=== PATIENT | male | born 1975 | race Caucasian/White ===

== ENCOUNTER 2020-01-01 06:54 | Outpatient (NON) | payer OTHER, SELFPAY ==
[2020-01-02 06:46] LABS: SARS-CoV-2 RNA PCR Negative
== END 2020-01-01 06:55 ==
LOC: ANHCOVIDDT 06:59
PROVIDERS: PCP Family Medicine; Visit Provider Family Medicine
DX: Z20.828 Contact with and (suspected) exposure to other viral communicable diseases (principal); R09.81 Nasal congestion
CPT/HCPCS: 87635; C9803; U0003

== ENCOUNTER 2020-07-03 19:47 | Emergency (ER) | payer OTHER, SELFPAY ==
--- NOTE | ~2020-07-03 | XR_ITS ---
EXAMINATION: XR knee RT min 4V DATE: 07/03/2020 20:33 INDICATION: Right knee pain TECHNIQUE: Four views of the right knee were obtained. COMPARISON: 10/25/2015 FINDINGS: Alignment is normal. No fracture or osteochondral lesion. There is mild tricompartmental os teoarthritis characterized by tiny marginal osteophytes an mild joint space narrowing. There is a lar ge knee joint effusion. Soft tissues are unremarkable. IMPRESSION: 1. Large knee joint effusion. Reviewed, dictated and finalized at location [facility].
[2020-07-03 20:13] VITALS: BP 152/98; PULSE 108; RESP 16; TEMP 36.2; O2SAT 97
--- NOTE | 2020-07-03 21:43 | ED.LOWEXIN ---
HPI - Extremity Injury (Lower) General Chief Complaint: Extremity Injury, Lower Stated Complaint: Right knee pain and swelling Time Seen by Provider: 07/03/20 20:18 History of Present Illness HPI Narrative: Patient is a 45-year-old male who presents ER with right knee pain and swelling. Ongoing over the last 5 days. Patient was initially sitting with his right heel tucked under his left leg for a while. He then stood up to walk and had sudden pain and stiffness. Swelling is increased since then. He is gone to the chiropractor and had prolozone treatment where they inject procaine and ionized oxygen into the ligaments of the knee. This has not been helping. Apparently he is also been having protein rich plasma injections over the last 5 weeks due to chronic issues related to the same knee. No fevers or chills or sweats. No redness to the leg/knee. No numbness or tingling. Patient reports she will get occasional spasms in his thigh related to his knee pain. Related Data Allergies Allergy/AdvReac Type Severity Reaction Status Date / Time ciprofloxacin Allergy Unknown Rash Verified 03/10/20 12:34 metronidazole Allergy Unknown Rash Verified 03/10/20 12:34 piperacillin Allergy Unknown Rash Verified 03/10/20 12:34 tazobactam Allergy Unknown Rash Verified 03/10/20 12:34 Review of Systems Review of Systems: All systems reviewed & are unremarkable except as noted in HPI and below Constitutional: Constitutional: Denies chills, Denies fever(s) and Denies weakness Musculoskeletal: Musculoskeletal: Reports arthralgias, Reports joint swelling and Reports muscle cramps Integumentary/Breasts: Skin/Breast: Denies rash and Denies skin ulcer Neurologic: Denies focal weakness and Denies numbness [facility] Past Medical History Medical History Anxiety Anxiety disorder, unspecified Arm fracture, left Arthralgia of ankle, right Asthma Decreased libido Diverticulitis Foot fracture, right Gout Idiopathic gout, unspecified site Nasal sinus cyst Screening PSA (prostate specific antigen) Seasonal allergies UTI (urinary tract infection) Vitamin D deficiency Surgical History Surgical History H/O removal of cyst nasal History of hip surgery bilateral Hx of cholecystectomy Family History Family History Grandparent Family history of malignant neoplasm of brain Other Cerebrovascular accident Diabetes mellitus Family history of arthritis Family history of cardiovascular disease Family history of gout Family history of malignant neoplasm Hypertension Social History Social History Smoking packs per day: 0.25 Smoking cigarettes per day: 5.0 Years smoked: 12 Smoking pack-years: 3.00 Smoking status: Former smoker Smoking end date: 02/11/10 Alcohol intake: current Gender identity (if verbalized by the patient): Male Exam Narrative: Exam Narrative: GENERAL: Well-appearing, well-nourished, and in no acute distress. HEAD: Normocephalic, atraumatic. HEART: Regular rate and rhythm. No murmur heard. Normal peripheral pulses. EXTREMITIES: Right lower extremity with large knee effusion. No joint line tenderness. Mild discomfort with valgus stress testing however this may be related to the hand being rested over the lateral aspect of the knee where he had his injections performed. No redness or swelling. Mild bruising from injections. SKIN: Warm, dry, no rash. NEURO: No focal deficits. Alert and oriented x3. PSYCH: Normal mood and affect. Course Course Emergency Course: Patient informed of results and treatment plan. Will place knee immobilizer. Recommend weightbearing as tolerated with crutches. Follow-up with orthopedic surgery for further treatment evaluation. May have a flare of his osteoarthritis or he m
[2020-07-03 22:11] VITALS: BP 150/103; PULSE 84; RESP 20; O2SAT 98
== END 2020-07-03 22:11 | disposition home or self-care (01) ==
PROVIDERS: Emergency Provider Emergency Medicine; PCP Family Medicine
DX: M25.461 Effusion, right knee (principal); J45.909 Unspecified asthma, uncomplicated; M10.00 Idiopathic gout, unspecified site; Z87.891 Personal history of nicotine dependence; E55.9 Vitamin D deficiency, unspecified
CPT/HCPCS: 73564; 99283

== ENCOUNTER 2020-07-04 15:33 | Outpatient (CLI) | payer OTHER, SELFPAY ==
[2020-07-04 15:56] LABS: Basophils Percent Auto 0.5 % (0.2-1.2); Eosinophils Absolute Auto 0.1 K/mm3 (0-0.3); Eosinophils Percent Auto 1.9 % (0-4.4); Hemoglobin 14.6 g/dL (14.0-18.0); Immature Granulocyte Absolute 0.02 K/mm3 (0.00-0.031); Immature Granulocyte Percent A 0.3 % (0-0.5); Lymphocytes Absolute Auto 1.94 K/mm3 (0.9-3.2); Lymphocytes Percent Auto 26.3 % (18.3-44.2); Mean Corpuscular HGB Conc 33.2 g/dl (32-36); Mean Corpuscular Hemoglobin 29.3 pg (26-34); Mean Corpuscular Volume 88.4 fl (80-100); Mean Platelet Volume 9.4 fl (7.4-10.4); Monocytes Absolute Auto 0.6 K/mm3 (0.1-0.6); Monocytes Percent Auto 7.7 % (2.6-8.5); Neutrophils Absolute Auto 4.7 K/mm3 (1.3-6.7); Neutrophils Percent Auto 63.3 % (45.5-73.1); Platelet Count Result 245 k/mm3 (150-375); Red Blood Count 4.98 M/mm3 (4.6-6.20); Red Cell Distribution Width 13.2 % (11.5-14.5); White Blood Count 7.4 K/mm3 (4.5-10.0)
[2020-07-04 16:05] LABS: Uric Acid 7.8 mg/dL (3.5-8.5)
== END 2020-07-04 15:34 | disposition home or self-care (01) ==
LOC: ANHLAB 15:35
PROVIDERS: PCP Family Medicine; Visit Provider Nurse Practitioner Family
DX: M25.461 Effusion, right knee (principal)
CPT/HCPCS: 36415; 84550; 85025

== ENCOUNTER 2020-07-28 15:24 | Outpatient (CLI) | payer OTHER, SELFPAY ==
--- NOTE | ~2020-07-28 | MR_ITS ---
EXAMINATION: MR knee RT wo con DATE: 07/28/2020 16:01 INDICATION: Right knee pain TECHNIQUE: Magnetic resonance imaging (MRI) of the right knee was performed without intravenous contr ast. Sequences included coronal PD-weighted FSE, coronal PD-weighted FS FSE, sagittal T2-weighted FS E, sagittal PD-weighted FS FSE and axial PD weighted fat saturated FSE. COMPARISON: Right knee radiographs dated 07/03/2020 FINDINGS: Medial compartment: Medial meniscus is normal. Articular cartilage is normal. Lateral compartment: Lateral meniscus is normal. Articular cartilage is normal. Patellofemoral compartment: Partial-thickness chondral ulceration and deep fissuring with underlying mild cortical irregularity a nd subarticular cystic edema at the lateral patellar facet. Additional chondral fissuring in place in volving greater than 50% the cartilage thickness but without degenerative subchondral changes at the apical ridge and lateral facet. Additional less severe partial thickness chondral fissuring along the caudal aspect of the trochlear groove. Ligaments and tendons: Anterior and posterior cruciate ligaments are normal. The medial collateral ligament is normal. There is mild thickening and mild increased signal at the proximal fibular collateral ligament with mild s urrounding edema consistent with low to moderate grade sprain. There is also thickening and more prom inent increased signal in the popliteal tendon consistent with moderate tendinopathy without discrete tear. Quadriceps tendon is normal. Mild tendinopathy at the proximal patellar tendon. The visualized medial and lateral hamstring tendons as well as the iliotibial band are normal. Fluid: Small right knee joint effusion with mild synovitis at the suprapatellar pouch. No loose osteochondra l bodies identified. Osseous/other: Normal bone marrow signal aside from the previous noted subarticular edema at the lateral patellar fa cet. No fracture or or pathologic marrow replacing process. IMPRESSION: 1. Mild patellofemoral osteoarthritis with extensive high-grade chondromalacia at the lateral patella r facet and moderate grade chondral malacia medial facet and trochlea groove. 2. Low to moderate grade sprain of the proximal fibular collateral ligament and adjacent moderate ten dinopathy without discrete tear of the popliteal tendon. 3. Small right knee joint effusion. Reviewed, dictated and finalized at location [facility]. IMPRESSION: 1. Mild patellofemoral osteoarthritis with extensive high-grade chondromalacia at the lateral patellar facet and moderate grade chondral malacia medial facet and trochlea groove. 2. Low to moderate grade sprain of the proximal fibular collateral ligament and adjacent moderate tendinopathy without discrete tear of the popliteal tendon. 3. Small right knee joint effusion.
== END 2020-07-28 15:25 ==
PROVIDERS: PCP Family Medicine; Visit Provider Orthopaedic Surgery
DX: M25.461 Effusion, right knee (principal); M17.11 Unilateral primary osteoarthritis, right knee
CPT/HCPCS: 73721

== ENCOUNTER 2020-08-05 12:48 | Outpatient (NON) | payer OTHER, SELFPAY ==
[2020-08-05 16:02] LABS: Color Synovial Fluid Yellow (Colorless); Crystals Synovial Fluid None Seen (None Seen); Source Synovial Fluid Synovial fluid
[2020-08-05 16:03] LABS: Appearance Synovial Fluid Cloudy (Clear); Lymphocytes Synovial Fluid 5 %; Monocytes Synovial Fluid 5 %; Neutrophils Synovial Fluid 90 % (0-25); Nucleated Cell Synovial Fluid 12356 /uL (0-200); RBC Synovial Fluid 0 /uL (0-0)
== END 2020-08-05 12:49 | disposition home or self-care (01) ==
PROVIDERS: PCP Family Medicine; Visit Provider Orthopaedic Surgery
DX: M25.561 Pain in right knee (principal)
CPT/HCPCS: 89051; 89060

== ENCOUNTER 2021-03-08 16:45 | Emergency (ER) | payer OTHER, SELFPAY ==
--- NOTE | ~2021-03-08 | CT_ITS ---
EXAMINATION: CT abdomen pelvis w con DATE: 03/08/2021 23:49 INDICATION: Lower abdominal pain for 3 days. History of diverticulitis. Nausea and diarrhea. TECHNIQUE: Computed tomography (CT) of the abdomen and pelvis was performed with 100 cc Omnipaque 350 intravenous contrast. Automated exposure control and iterative reconstruction technique were employe d. Exam dose: 1402.10 mGy-cm total exam DLP. COMPARISON: 05/25/2017 CT abdomen pelvis FINDINGS: The lung bases are clear of infiltrate or consolidation. Normal heart size. No pericardial or pleural effusion. There is diffuse hepatic steatosis. No hepatic space-occupying mass lesion. Status post cholecystecto my. No bile duct or pancreatic duct dilatation. No pancreatic mass lesion or calcification. Normal sp lenic size. Normal morphology of the adrenal glands. 5 mm lower pole right renal cyst. The kidneys are otherwise unremarkable. No urinary tract calculus o r hydroureteronephrosis. There is moderate diffuse thickening of the urinary bladder wall, mild prostate enlargement. Normal caliber of the abdominal aorta. No intraperitoneal or retroperitoneal or pelvic mass lesion or adenopathy or ascites. There is prominent thickening of the wall of the mid sigmoid colon in the lower right pelvic area wit h prominent pericolic fat stranding, consistent with sigmoid diverticulitis. No abscess is identified . There is a small amount of fluid in the dependent pelvis. There are numerous diverticula of the left and right colon. Normal appendix. Small fat-containing umbilical hernia and small fat-containing left inguinal hernia. No suspicious osteolytic or osteoblastic lesions are noted. Bilateral hip osteoarthritis. IMPRESSION: Sigmoid diverticulitis; no abscess identified Extensive diverticulosis of left and right colon Normal appendix Hepatic steatosis Status post cholecystectomy Reviewed, dictated and finalized at [facility]. Reviewed, dictated and finalized at location [facility]. T [employer]
[2021-03-08 17:14] VITALS: BP 157/96; PULSE 100; RESP 20; TEMP 36.7; O2SAT 99
[2021-03-08 21:18] VITALS: BP 148/99; RESP 18; O2SAT 100
[2021-03-08 21:40] LABS: Add Urine Microscopic? YES; Appearance Urine Clear (Clear); Bilirubin Urine Negative (Negative); Blood Urine 1+ (Negative); Color Urine Yellow (Yellow); Glucose Urine UA Negative (Negative); Ketones Urine Negative (Negative); Leukocyte Esterase Ur Negative LEU/UL (Negative); Mucus Urine Rare /lpf; Nitrate Urine Negative (Negative); Protein Urine Negative (Negative); Specific Grav Ur 1.013 (1.001-1.035); Squamous Epithelial Cell Urine Rare /hpf (Few); Urobilinogen Urine Negative mg/dL (<2.0); WBC Urine 0-3 /hpf
[2021-03-08 22:17] LABS: Basophils Percent Auto 0.5 % (0.2-1.2); Eosinophils Absolute Auto 0.1 K/mm3 (0-0.3); Eosinophils Percent Auto 1.2 % (0-4.4); Hematocrit 43.8 % (42.0-52.0); Hemoglobin 14.6 g/dL (14.0-18.0); Immature Granulocyte Absolute 0.01 K/mm3 (0.00-0.031); Immature Granulocyte Percent A 0.1 % (0-0.5); Lymphocytes Absolute Auto 2.13 K/mm3 (0.9-3.2); Mean Corpuscular HGB Conc 33.3 g/dl (32-36); Mean Corpuscular Hemoglobin 27.8 pg (26-34); Mean Corpuscular Volume 83.4 fl (80-100); Monocytes Absolute Auto 0.8 K/mm3 (0.1-0.6); Monocytes Percent Auto 9.5 % (2.6-8.5); Neutrophils Absolute Auto 5.7 K/mm3 (1.3-6.7); Neutrophils Percent Auto 64.7 % (45.5-73.1); Platelet Count Result 217 k/mm3 (150-375); Red Blood Count 5.25 M/mm3 (4.6-6.20); Red Cell Distribution Width 14.4 % (11.5-14.5); White Blood Count 8.9 K/mm3 (4.5-10.0)
[2021-03-08 22:43] LABS: Alanine Aminotransferase 61 U/L (4-50); Albumin Level 5.1 g/dL (3.5-5.1); Alkaline Phosphatase 99 U/L (38-126); Anion Gap 12 mmol/L (8-16); Aspartate Amino Transferase 77 U/L (17-59); Bilirubin,Total 1.5 mg/dL (0.2-1.3); Blood Urea Nitrogen 12 mg/dL (9-20); Calcium 9.5 mg/dL (8.4-10.2); Carbon Dioxide 23 mmol/L (22-30); Chloride 103 mmol/L (98-107); Estimated CRCL calculation 114 ml/min; Estimated Glomerular Filt Rate > 60; Glucose 95 mg/dL (65-110); Lipase 81 U/L (23-300); Potassium 5.7 mmol/L (3.4-5.0); Sodium 138 mmol/L (137-145)
[2021-03-08 23:03] VITALS: BP 148/100; PULSE 88; RESP 18; O2SAT 100
--- NOTE | 2021-03-09 00:06 | ED.ABDPAIN ---
HPI - Abdominal Pain General Chief Complaint: Abdominal Pain Stated Complaint: abd pain Time Seen by Provider: 03/08/21 21:15 Source: patient Mode of arrival: ambulatory Limitations: no limitations History of Present Illness HPI narrative: 45-year-old with a history of diverticulitis, anxiety, gout, hypertension here with complaints of suprapubic pain for past few days. He thought he was passing a kidney stone and drank a gallon of cranberry juice last night. Patient denies any fever or chills. No history of nausea, vomiting or diarrhea. Denies any blood in the urine or in stool. MD elicited complaint: abdominal pain Pertinent past history: diverticulitis Onset (ago): day(s) (2) Location: suprapubic Severity: moderate Quality: aching Radiation: suprapubic Migration to: no migration Exacerbating factors: nothing Relieving factors: nothing Related Data Home Medications Medication Instructions Recorded Confirmed fexofenadine 180 mg tablet 180 mg PO DAILY 01/09/21 03/08/21 fluticasone propionate 50 1 spray INTRANASAL DAILY 01/09/21 03/08/21 mcg/actuation nasal spray,suspension multivitamin 1 tablet PO DAILY 01/09/21 03/08/21 Allergies Allergy/AdvReac Type Severity Reaction Status Date / Time ciprofloxacin Allergy Unknown Rash Verified 03/08/21 08:33 metronidazole Allergy Unknown Rash Verified 03/08/21 08:33 piperacillin Allergy Unknown Rash Verified 03/08/21 08:33 tazobactam Allergy Unknown Rash Verified 03/08/21 08:33 Review of Systems Review of Systems: All systems reviewed & are unremarkable except as noted in HPI and below Constitutional: Constitutional: Reports no additional constitutional complaints Eyes: Eyes: Reports no additional eye complaints ENT: Reports system reviewed and no additional complaints, except as documented Cardiovascular: Cardiovascular: Reports no additional cardiovascular complaints Respiratory: Respiratory: Reports no additional respiratory complaints Gastrointestinal: Gastrointestinal: Reports as per HPI Integumentary/Breasts: Skin/Breast: Reports system reviewed and no additional complaints, except as docu Neurologic: Reports system reviewed and no additional complaints, except as documented Endocrine: Endocrine: Reports no additional endocrine complaints Hematologic/Lymphatic: Hematologic/Lymphatic: Reports no additional hematologic/lymphatic complaints PMFSH Past Medical History Medical History Anxiety Anxiety disorder, unspecified Arm fracture, left Arthralgia of ankle, right Asthma BMI 34.0-34.9,adult BMI 34.0-34.9,adult BMI 36.0-36.9,adult Decreased libido Diverticulitis Foot fracture, right Gout Idiopathic gout, unspecified site Nasal sinus cyst Screening PSA (prostate specific antigen) Seasonal allergies UTI (urinary tract infection) Vitamin D deficiency Surgical History Surgical History H/O removal of cyst nasal History of hip surgery bilateral Hx of cholecystectomy Family History Family History Grandparent Family history of malignant neoplasm of brain Father Heart disease Cancer Mother No problems noted. Sibling Diabetes mellitus Other Cerebrovascular accident Family history of arthritis Family history of cardiovascular disease Family history of gout Family history of malignant neoplasm Hypertension Social History Social History Smoking packs per day: 0.25 Smoking cigarettes per day: 5.0 Years smoked: 12 Smoking pack-years: 3.00 Tobacco type: cigarettes and pipe Smoking end date: 02/11/10 Alcohol intake: current Drinks per week: 5 Substance use: never Substance use type: does not use Additional living arrangements comments: and daughters Additional occupation/edu
[2021-03-09 01:12] VITALS: BP 148/100; PULSE 97; RESP 16; O2SAT 98
== END 2021-03-09 01:13 | disposition home or self-care (01) ==
PROVIDERS: Emergency Provider Family Medicine; PCP Family Medicine
DX: K57.32 Diverticulitis of large intestine without perforation or abscess without bleeding (principal); I10 Essential (primary) hypertension; J45.909 Unspecified asthma, uncomplicated; M10.00 Idiopathic gout, unspecified site; Z87.440 Personal history of urinary (tract) infections; E55.9 Vitamin D deficiency, unspecified; Z87.891 Personal history of nicotine dependence; K76.0 Fatty (change of) liver, not elsewhere classified
CPT/HCPCS: 36415; 74177; 80053; 81001; 83690; 85025; 99284; Q9967

== ENCOUNTER 2021-08-04 00:44 | Day surgery (SDC) | payer OTHER, SELFPAY ==
[2021-07-26 10:06] VITALS: BMI 34.1
--- NOTE | 2021-08-03 12:07 | WPDANESEPPF ---
Anes - Initial Pre Proc Eval Procedure: Operation Date: 08/04/21 09:30 Proposed Procedures p Colonoscopy - Amanuel Coronado MD Date/Time: 08/03/21 12:07 Surgeon: Amanuel Coronado MD Pre Op Diagnosis: diverticulitis Patient Data Age: 46 Gender: M Height: 1.8 m Weight: 111 kg Allergies Allergy/AdvReac Type Severity Reaction Status Date / Time ciprofloxacin Allergy Unknown Rash Verified 08/04/21 08:38 metronidazole Allergy Unknown Rash Verified 08/04/21 08:38 piperacillin Allergy Unknown Rash Verified 08/04/21 08:38 tazobactam Allergy Unknown Rash Verified 08/04/21 08:38 sulfamethoxazole AdvReac Intermediate Rash Verified 08/04/21 08:38 [From Bactrim] trimethoprim [From Bactrim] AdvReac Intermediate Rash Verified 08/04/21 08:38 Home Medications Medication Instructions Recorded Confirmed Type allopurinol 300 mg tablet 300 mg PO DAILY #90 tabs 12/05/20 08/04/21 Rx fexofenadine 180 mg tablet 180 mg PO DAILY 01/09/21 08/04/21 History ([facility]hell Allergy) fluticasone propionate 50 1 spray intranasal DAILY 01/09/21 08/04/21 History mcg/actuation nasal spray,suspension (Flonase Allergy Relief) multivitamin 1 tablet PO DAILY 01/09/21 08/04/21 History lisinopril 10 mg tablet 10 mg PO DAILY #90 tabs 07/06/21 08/04/21 Rx Patient hx anesthesia problems: none Family hx anesthesia problems: none Results Review: All pre-operative results and documents have been reviewed as part of the pre-operative evaluation. [facility] Past Medical History Medical History (Updated 08/03/21 @ 12:07 by Errol Santamaria DO) Anxiety Anxiety disorder, unspecified Arm fracture, left Arthralgia of ankle, right Asthma BMI 34.0-34.9,adult BMI 34.0-34.9,adult BMI 36.0-36.9,adult Decreased libido Diverticulitis Foot fracture, right Gout Hypertension Idiopathic gout, unspecified site Nasal sinus cyst Screening PSA (prostate specific antigen) Seasonal allergies UTI (urinary tract infection) Vitamin D deficiency Surgical History Surgical History H/O removal of cyst nasal History of hip surgery bilateral Hx of cholecystectomy Family History Family History Grandparent Family history of malignant neoplasm of brain Father Heart disease Cancer Mother No problems noted. Sibling Diabetes mellitus Thyroid activity decreased Other Cerebrovascular accident Family history of arthritis Family history of cardiovascular disease Family history of gout Family history of malignant neoplasm Hypertension Social History Social History Smoking packs per day: 0.5 Smoking cigarettes per day: 10.0 Years smoked: 15 Smoking pack-years: 7.50 Smoking status: Never smoker Tobacco type: cigarettes Second hand tobacco smoke exposure: Yes Smoking end date: 02/11/10 Alcohol intake: current Drinks per week: 5 Alcohol use details: on occassion Substance use: never Substance use type: does not use Living arrangements: with family Additional living arrangements comments: and daughters 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 Gender identity (if verbalized by the patient): Male Sexual Orientation (if Verbalized by the Patient): Straight or Heterosexual Spiritual care concerns: No Agree to blood products: Yes Anes - Eval Final PreProcedure Day of Procedure 08/03/21 12:07 Patient weight: obese Heart: regular rate and rhythm Lungs: clear to auscultation Airway: Mallampati scale class II Neurological: alert and oriented Last oral intake: >/= 8 hours ASA classification: III Emergent: no Anesthetic plan: proceed Anesthesia type and monitoring: general GIVS and standard monitoring Results Review: All pre-operative results and documents have been reviewed as part of the
[2021-08-04 08:40] VITALS: BP 119/86; PULSE 92; RESP 16; TEMP 36.2; O2SAT 98
[2021-08-04] MEDS: LACTATED RINGERS 1,000 ML 150 ML IV CONT (08:47)
--- NOTE | 2021-08-04 09:22 | PM.IMHP ---
H&P: HPI History of Present Illness Date/Time: 08/04/21 09:22 Chief Complaint: History of diverticulitis. Narrative: This is a 46-year-old white male patient with a history of diverticulitis about 4 years ago. He has had several episodes since February of 2021. This is relapsed with at least 3 distinct episodes of pain requiring recurrent courses of antibiotics. Patient currently feels well over the last 6-8 weeks. His current bowel habits are normally denies any bleeding. He has had no fever abdominal pain. He reports allergies to multiple antibiotics. He presents today for follow-up colonoscopy. His family history is noncontributory. Review of Systems Review of Systems: Review of systems noncontributory. [facility] Past Medical History Medical History (Updated 08/03/21 @ 12:07 by Errol Santamaria DO) Anxiety Anxiety disorder, unspecified Arm fracture, left Arthralgia of ankle, right Asthma BMI 34.0-34.9,adult BMI 34.0-34.9,adult BMI 36.0-36.9,adult Decreased libido Diverticulitis Foot fracture, right Gout Hypertension Idiopathic gout, unspecified site Nasal sinus cyst Screening PSA (prostate specific antigen) Seasonal allergies UTI (urinary tract infection) Vitamin D deficiency Surgical History Surgical History H/O removal of cyst nasal History of hip surgery bilateral Hx of cholecystectomy Family History Family History Grandparent Family history of malignant neoplasm of brain Father Heart disease Cancer Mother No problems noted. Sibling Diabetes mellitus Thyroid activity decreased Other Cerebrovascular accident Family history of arthritis Family history of cardiovascular disease Family history of gout Family history of malignant neoplasm Hypertension Social History Social History Smoking packs per day: 0.5 Smoking cigarettes per day: 10.0 Years smoked: 15 Smoking pack-years: 7.50 Smoking status: Never smoker Tobacco type: cigarettes Second hand tobacco smoke exposure: Yes Smoking end date: 02/11/10 Alcohol intake: current Drinks per week: 5 Alcohol use details: on occassion Substance use: never Substance use type: does not use Living arrangements: with family Additional living arrangements comments: and daughters 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 Gender identity (if verbalized by the patient): Male Sexual Orientation (if Verbalized by the Patient): Straight or Heterosexual Spiritual care concerns: No Agree to blood products: Yes Meds Home Medications and Allergies Home Medications Medication Instructions Recorded Confirmed Type allopurinol 300 mg tablet 300 mg PO DAILY #90 tabs 12/05/20 08/04/21 Rx fexofenadine 180 mg tablet 180 mg PO DAILY 01/09/21 08/04/21 History ([facility]hell Allergy) fluticasone propionate 50 1 spray intranasal DAILY 01/09/21 08/04/21 History mcg/actuation nasal spray,suspension (Flonase Allergy Relief) multivitamin 1 tablet PO DAILY 01/09/21 08/04/21 History sodium sul 1.479 gram-potas ch See Rx Instructions PO PER PKG DIR 06/23/21 08/04/21 Rx 0.188 gram-magnes sul 0.225 gram #24 tabs tablet (Sutab) lisinopril 10 mg tablet 10 mg PO DAILY #90 tabs 07/06/21 08/04/21 Rx Allergies Allergy/AdvReac Type Severity Reaction Status Date / Time ciprofloxacin Allergy Unknown Rash Verified 08/04/21 08:38 metronidazole Allergy Unknown Rash Verified 08/04/21 08:38 piperacillin Allergy Unknown Rash Verified 08/04/21 08:38 tazobactam Allergy Unknown Rash Verified 08/04/21 08:38 sulfamethoxazole AdvReac Intermediate Rash Verified 08/04/21 08:38 [From Bactrim] trimethoprim [From Bactrim] AdvReac Intermediate Rash Verified 08/04/21 08:38 Vital Signs Vital Signs - 24 hr 0
[2021-08-04 09:46] VITALS: BP 110/73; PULSE 92; RESP 21; O2SAT 98
[2021-08-04 09:56] VITALS: BP 110/72; PULSE 81; RESP 22; O2SAT 98
[2021-08-04 10:06] VITALS: BP 108/73; PULSE 73; RESP 24; O2SAT 98
== END 2021-08-04 10:18 | disposition home or self-care (01) ==
PROVIDERS: PCP Family Medicine; Visit Provider Internal Medicine Gastroenterology
PROC: 0DJD8ZZ Inspection of Lower Intestinal Tract, Via Natural or Artificial Opening Endoscopic (ICD-10-PCS; CPT 45378; principal; 2021-08-04 09:30)
DX: Z09 Encounter for follow-up examination after completed treatment for conditions other than malignant neoplasm (principal); K63.5 Polyp of colon; K64.8 Other hemorrhoids; K57.30 Diverticulosis of large intestine without perforation or abscess without bleeding; Z87.19 Personal history of other diseases of the digestive system; I10 Essential (primary) hypertension; M10.9 Gout, unspecified; J45.909 Unspecified asthma, uncomplicated; F41.9 Anxiety disorder, unspecified; E55.9 Vitamin D deficiency, unspecified; Z87.891 Personal history of nicotine dependence
CPT/HCPCS: 45380; 88305; J2704; J7120

== ENCOUNTER 2021-12-11 09:50 | Emergency (ER) | payer OTHER, SELFPAY ==
[2021-12-11 10:03] VITALS: BP 160/109; PULSE 86; RESP 16; TEMP 36.2; O2SAT 100
--- NOTE | 2021-12-11 10:26 | ED.EXTPRO ---
HPI - Extremity Problem General Chief complaint: Extremity Injury, Lower Stated complaint: achilles tendon/ heel lt foot pain Time Seen by Provider: 12/11/21 10:32 Source: patient and RN notes reviewed Mode of arrival: ambulatory Limitations: no limitations History of Present Illness HPI Narrative: 46-year-old male presents with concern for acute pain. He denies injury or trauma. He reports symptoms started on . He reports he has a history of gout so he started taking indomethacin, he takes allopurinol daily. He denies any improvement from taking indomethacin. He reports he has been using a walking boot that he had from an old injury, and even with the walking boot he cannot put pressure on his heel. He reports pain worsens as the day goes on. MD Complaint: extremity pain Related Data Home Medications Medication Instructions Recorded Confirmed fexofenadine 180 mg tablet 180 mg PO DAILY 01/09/21 08/04/21 ([facility]hell Allergy) fluticasone propionate 50 1 spray intranasal DAILY 01/09/21 08/04/21 mcg/actuation nasal spray,suspension (Flonase Allergy Relief) multivitamin 1 tablet PO DAILY 01/09/21 08/04/21 Allergies Allergy/AdvReac Type Severity Reaction Status Date / Time ciprofloxacin Allergy Unknown Rash Verified 08/04/21 08:38 metronidazole Allergy Unknown Rash Verified 08/04/21 08:38 piperacillin Allergy Unknown Rash Verified 08/04/21 08:38 tazobactam Allergy Unknown Rash Verified 08/04/21 08:38 sulfamethoxazole AdvReac Intermediate Rash Verified 08/04/21 08:38 [From Bactrim] trimethoprim [From Bactrim] AdvReac Intermediate Rash Verified 08/04/21 08:38 Review of Systems Review of Systems: CONSTITUTIONAL: Denies malaise, chills, sweats, or fever. CARDIOVASCULAR: Denies edema. RESPIRATORY: Denies cough or dyspnea. SKIN: Denies rash or itching, bruising, open skin MUSCULOSKELETAL: Reports left heel pain that worsens with flexion NEUROLOGIC: Denies numbness, weakness All systems reviewed & are unremarkable except as noted in HPI and below PMFSH Past Medical History Medical History (Updated 12/11/21 @ 10:42 by Ursula Orosco NP) Anxiety Anxiety disorder, unspecified Arm fracture, left Arthralgia of ankle, right Asthma BMI 34.0-34.9,adult BMI 34.0-34.9,adult BMI 36.0-36.9,adult Decreased libido Diverticulitis Foot fracture, right Gout Hypertension Idiopathic gout, unspecified site Nasal sinus cyst Screening PSA (prostate specific antigen) Seasonal allergies UTI (urinary tract infection) Vitamin D deficiency Surgical History Surgical History H/O removal of cyst nasal History of hip surgery bilateral Hx of cholecystectomy Family History Family History Grandparent Family history of malignant neoplasm of brain Father Heart disease Cancer Mother No problems noted. Sibling Diabetes mellitus Thyroid activity decreased Other Cerebrovascular accident Family history of arthritis Family history of cardiovascular disease Family history of gout Family history of malignant neoplasm Hypertension Social History Social History Smoking packs per day: 0.5 Smoking cigarettes per day: 10.0 Years smoked: 15 Smoking pack-years: 7.50 Smoking status: Never smoker Tobacco type: cigarettes Second hand tobacco smoke exposure: Yes Smoking end date: 02/11/10 Alcohol intake: current Drinks per week: 5 Alcohol use details: on occassion Substance use: never Substance use type: does not use Additional living arrangements comments: and daughters 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
== END 2021-12-11 10:49 | disposition home or self-care (01) ==
PROVIDERS: Emergency Provider Nurse Practitioner; PCP Family Medicine
DX: M79.672 Pain in left foot (principal); F17.210 Nicotine dependence, cigarettes, uncomplicated
CPT/HCPCS: 99213; G0463

== ENCOUNTER → 2022-01-29 12:23 | Outpatient (CLI) | payer OTHER, SELFPAY ==
--- NOTE | ~2022-01-29 | MR_ITS ---
MRI of the left ankle Clinical history: Achilles tendinopathy Technique: Coronal proton-density and proton-density fat-sat images, axial proton-density and proton- density fat-sat images, and sagittal proton-density and proton-density fat-sat images were acquired. Findings: Distal syndesmotic ligaments are intact. Anterior talofibular ligament is not visualized, p robably chronically torn. Posterior talofibular and calcaneofibular ligaments are intact. Deltoid lig ament is intact. Superomedial band of the spring ligament is intact. Medial flexor tendons, peroneal tendons, anterior extensor tendons, and Achilles tendon are intact. N o significant abnormality of the Achilles tendon identified. There is focal high-grade chondromalacia at the lateral corner of the talar dome with subchondral cys tic change. There is additional focal subchondral cystic change at the medial talar dome, again no fo kathie overlying chondromalacia. Remaining bone marrow signals are unremarkable. No other articular abno rmality seen. Plantar fascia intact. Normal signal preserved at the sinus Tarsi. No soft tissue mass or fluid colle ction seen. 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 No Achilles tendinopathy. Reviewed, dictated and finalized at location . 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 No Achilles tendinopathy.
== END ==
PROVIDERS: PCP Podiatrist Foot & Ankle Surgery; Visit Provider Podiatrist Foot & Ankle Surgery
DX: M76.62 Achilles tendinitis, left leg (principal)
CPT/HCPCS: 73721

== ENCOUNTER → 2022-01-29 12:34 | Outpatient (CLI) | payer OTHER, SELFPAY ==
--- NOTE | ~2022-01-29 | US_ITS ---
Abdominal Sonogram: Real-time sonographic imaging of the abdomen was performed. Clinical History: Abnormal blood chemistry Findings: The liver appears echogenic, with no evidence of mass lesion or bile duct dilatation. Main portal vein demonstrates normal direction of flow. The spleen is normal in size without evidence of focal lesion. The gallbladder is absent, compatible prior cholecystectomy. The common bile duct lynn ures 3 mm. The visualized pancreas, aorta, and IVC are unremarkable. The right kidney measures 11.9 cm in length and the left kidney measures 10.8 cm. There is no hydronephrosis or renal calculus. Impression: Diffuse fatty infiltration of the liver. Status post cholecystectomy. Reviewed, dictated and finalized at location M. F OF VITAL STATISTICS Impression: Diffuse fatty infiltration of the liver. Status post cholecystectomy.
== END ==
PROVIDERS: PCP Physician Assistant Medical; Visit Provider Physician Assistant Medical
DX: R79.89 Other specified abnormal findings of blood chemistry (principal); K76.0 Fatty (change of) liver, not elsewhere classified; Z90.49 Acquired absence of other specified parts of digestive tract
CPT/HCPCS: 76700

== ENCOUNTER 2022-03-09 11:31 | Emergency (ER) | payer OTHER, SELFPAY ==
--- NOTE | ~2022-03-09 | CT_ITS ---
EXAMINATION: CT abdomen pelvis w con DATE: 03/09/2022 12:42 INDICATION: Abdominal pain. TECHNIQUE: Computed tomography (CT) of the abdomen and pelvis was performed with 100 mL Omnipaque 350 intravenous contrast. Automated exposure control and iterative reconstruction technique were employe d. The dose-length product was 1497.82 mGy-cm. COMPARISON: CT abdomen and pelvis 03/08/2021 FINDINGS: The visualized portions of the lung bases demonstrate mild atelectasis. No pleural effusion . The heart size is normal. No pericardial effusion. There is diffuse hepatic steatosis. There are ch anges of cholecystectomy. Calcifications in the spleen are consistent with old granulomatous disease. The pancreas, adrenal glands, and kidneys are normal. The prostate is mildly enlarged. There are sca ttered diverticula in the colon. There is fat stranding around a diverticulum of sigmoid colon, consi stent with diverticulitis. There are no dilated loops of bowel. The appendix is normal. There is an u mbilical hernia containing fat. There are no pathologically enlarged lymph nodes. There is no free in traperitoneal fluid. There is a left inguinal hernia containing fat. There is mild thoracolumbar spon dylosis. IMPRESSION: 1. Sigmoid diverticulitis. No perforation or abscess. Reviewed, dictated and finalized at location A. ACT OFFICER
[2022-03-09 11:33] VITALS: BP 155/103; PULSE 96; RESP 18; TEMP 36.3; O2SAT 99
--- NOTE | 2022-03-09 11:52 | ED.GENADULT ---
HPI - General Adult General Chief complaint: Abdominal Pain Stated complaint: diverticulitis, sent by doc Time Seen by Provider: 03/09/22 11:34 Source: RN notes reviewed History of Present Illness HPI narrative: Patient presents emergency room from home for abdominal pain. Patient states that he has a history of diverticulitis. States that last week he was having pain in the lower abdomen that went away after 4 days. He states that the pain returned 2 days ago and became more severe this morning. The pain is located in the bilateral lower abdomen but is worse on the left and described as sharp and stabbing and does not radiate. States he called his GI specialist Dr Coronado and was referred to the ER for further evaluation. He denies any nausea or vomiting denies any diarrhea. States he took a hydrocodone at home and does not require pain medication at this time Related Data Home Medications Medication Instructions Recorded Confirmed fexofenadine 180 mg tablet 180 mg PO DAILY 01/09/21 01/15/22 ([facility]hell Allergy) fluticasone propionate 50 1 spray intranasal DAILY 01/09/21 01/15/22 mcg/actuation nasal spray,suspension (Flonase Allergy Relief) multivitamin 1 tablet PO DAILY 01/09/21 01/15/22 hydrocodone 5 mg-acetaminophen 325 1 tablet PO DAILY PRN pain 01/15/22 01/15/22 mg tablet Allergies Allergy/AdvReac Type Severity Reaction Status Date / Time ciprofloxacin Allergy Unknown Rash Verified 01/15/22 12:45 metronidazole Allergy Unknown Rash Verified 01/15/22 12:45 piperacillin Allergy Unknown Rash Verified 01/15/22 12:45 tazobactam Allergy Unknown Rash Verified 01/15/22 12:45 sulfamethoxazole AdvReac Intermediate Rash Verified 01/15/22 12:45 [From Bactrim] trimethoprim [From Bactrim] AdvReac Intermediate Rash Verified 01/15/22 12:45 Review of Systems Review of Systems: Gen.: Denies fevers or chills ENT: Denies congestion Respiratory: Denies shortness of breath or cough CV: Denies chest pain or palpitations GI: See HPI denies burning, urgency, frequency or hematuria Musculoskeletal: Denies back pain or muscle pain Neuro: Denies numbness, tingling, weakness or focal weakness Skin: Denies rash Except as documented, all other systems reviewed and negative PMFSH Past Medical History Medical History Adult BMI 37.0-37.9 kg/sq m Anxiety Anxiety disorder, unspecified Arm fracture, left Arthralgia of ankle, right Asthma BMI 34.0-34.9,adult BMI 34.0-34.9,adult BMI 36.0-36.9,adult Decreased libido Diverticulitis Foot fracture, right Gout Hypertension Idiopathic gout, unspecified site Nasal sinus cyst Screening PSA (prostate specific antigen) Seasonal allergies UTI (urinary tract infection) Vitamin D deficiency Surgical History Surgical History H/O removal of cyst nasal History of hip surgery bilateral Hx of cholecystectomy Family History Family History Grandparent Family history of malignant neoplasm of brain Father Heart disease Cancer Mother No problems noted. Sibling Diabetes mellitus Thyroid activity decreased Other Cerebrovascular accident Family history of arthritis Family history of cardiovascular disease Family history of gout Family history of malignant neoplasm Hypertension Social History Social History Smoking packs per day: 0.5 Smoking cigarettes per day: 10.0 Years smoked: 15 Smoking pack-years: 7.50 Smoking status: Never smoker Tobacco type: cigarettes Second hand tobacco smoke exposure: Yes Smoking end date: 02/11/10 Alcohol intake: current Drinks per week: 5 Alcohol use details: on occassion Substance use: never Substance use type: does not use Living arrangements: with family Add
[2022-03-09] MEDS: SODIUM CHLORIDE 0.9% IV 1,000 ML 999 ML IV CONT (12:03)
[2022-03-09 12:15] LABS: Basophils Absolute Auto 0.1 K/mm3 (0.0-0.1); Basophils Percent Auto 0.7 % (0.2-1.2); Eosinophils Absolute Auto 0.2 K/mm3 (0-0.3); Eosinophils Percent Auto 2.4 % (0-4.4); Hemoglobin 15.9 g/dL (14.0-18.0); Immature Granulocyte Absolute 0.03 K/mm3 (0.00-0.031); Immature Granulocyte Percent A 0.3 % (0-0.5); Lymphocytes Percent Auto 21.7 % (18.3-44.2); Mean Corpuscular HGB Conc 33.8 g/dl (32-36); Mean Corpuscular Hemoglobin 29.6 pg (26-34); Mean Corpuscular Volume 87.5 fl (80-100); Mean Platelet Volume 9.5 fl (7.4-10.4); Monocytes Absolute Auto 0.5 K/mm3 (0.1-0.6); Monocytes Percent Auto 6.2 % (2.6-8.5); Neutrophils Percent Auto 68.7 % (45.5-73.1); Platelet Count Result 211 k/mm3 (150-375); Red Blood Count 5.37 M/mm3 (4.6-6.20); Red Cell Distribution Width 13.2 % (11.5-14.5); White Blood Count 8.8 K/mm3 (4.5-10.0)
[2022-03-09 12:18] LABS: Appearance Urine Clear (Clear); Bilirubin Urine Negative (Negative); Blood Urine 1+ (Negative); Color Urine Yellow (Yellow); Glucose Urine UA Negative (Negative); Ketones Urine Negative (Negative); Leukocyte Esterase Ur Negative LEU/UL (Negative); Nitrate Urine Negative (Negative); Protein Urine Negative (Negative); Specific Grav Ur 1.025 (1.001-1.035); Urobilinogen Urine 0.2 mg/dL (<2.0); pH Urine 5.5 (5.0-9.0)
[2022-03-09 12:25] LABS: Alanine Aminotransferase 49 U/L (6-50); Albumin Level 4.8 g/dL (3.5-5.1); Alkaline Phosphatase 86 U/L (38-126); Anion Gap 9 mmol/L (8-16); Aspartate Amino Transferase 41 U/L (17-59); Bacteria Urine Trace /hpf; Bilirubin,Total 0.7 mg/dL (0.2-1.3); Blood Urea Nitrogen 19 mg/dL (9-20); Carbon Dioxide 23 mmol/L (22-30); Chloride 102 mmol/L (98-107); Estimated CRCL calculation 112 ml/min; Estimated Glomerular Filt Rate > 60; Glucose 132 mg/dL (65-110); Lipase 82 U/L (23-300); Mucus Urine Moderate /lpf; Potassium 4.3 mmol/L (3.4-5.0); Sodium 134 mmol/L (137-145); Squamous Epithelial Cell Urine Occasional /hpf (Few); WBC Urine 0-3 /hpf
[2022-03-09 12:27] LABS: Add Urine Microscopic? YES
[2022-03-09] MEDS: AMOXICILLIN/CLAVULANATE K 875-125 MG TAB 1 TABLET PO (13:29)
[2022-03-09] MEDS: KETOROLAC 30 MG/ML VIAL (*BKC) IV PUSH (13:41)
[2022-03-09 14:56] VITALS: BP 135/94; PULSE 70; RESP 12; O2SAT 98
== END 2022-03-09 15:05 | disposition home or self-care (01) ==
PROVIDERS: Emergency Provider Emergency Medicine; PCP Internal Medicine Gastroenterology
DX: K57.32 Diverticulitis of large intestine without perforation or abscess without bleeding (principal); J45.909 Unspecified asthma, uncomplicated; M10.00 Idiopathic gout, unspecified site; E55.9 Vitamin D deficiency, unspecified; Z87.440 Personal history of urinary (tract) infections; Z87.891 Personal history of nicotine dependence
CPT/HCPCS: 36415; 74177; 80053; 81001; 83605; 83690; 85025; 96361; 96374; 99284; A9270; J1885; J7030; Q9967

== ENCOUNTER 2022-04-02 07:47 | Outpatient (CLI) | payer OTHER, SELFPAY ==
--- NOTE | 2022-04-02 08:57 | ECG_ITS ---
Measurements Intervals [place] Rate: 78 P: 27 ME: 118 QRS: 19 QRSD: 99 T: 33 QT: 373 QTc: 425 Interpretive Statements SINUS RHYTHM WITH SHORT ME INTERVAL OTHERWISE NORMAL ECG NO PREVIOUS ECG AVAILABLE FOR COMPARISON Electronically Signed On 04-02-2022 12:46:27 FRAUD INVESTIGATOR by Jason Stock M.D.
[2022-04-02 09:36] LABS: Basophils Absolute Auto 0.1 K/mm3 (0.0-0.1); Basophils Percent Auto 0.8 % (0.2-1.2); Eosinophils Absolute Auto 0.3 K/mm3 (0-0.3); Eosinophils Percent Auto 3.8 % (0-4.4); Hematocrit 44.9 % (42.0-52.0); Immature Granulocyte Absolute 0.02 K/mm3 (0.00-0.031); Immature Granulocyte Percent A 0.3 % (0-0.5); Lymphocytes Absolute Auto 1.99 K/mm3 (0.9-3.2); Lymphocytes Percent Auto 30.4 % (18.3-44.2); Mean Corpuscular HGB Conc 33.4 g/dl (32-36); Mean Corpuscular Hemoglobin 29.3 pg (26-34); Mean Corpuscular Volume 87.7 fl (80-100); Mean Platelet Volume 9.8 fl (7.4-10.4); Monocytes Absolute Auto 0.6 K/mm3 (0.1-0.6); Monocytes Percent Auto 8.9 % (2.6-8.5); Neutrophils Absolute Auto 3.7 K/mm3 (1.3-6.7); Neutrophils Percent Auto 55.8 % (45.5-73.1); Platelet Count Result 216 k/mm3 (150-375); Red Blood Count 5.12 M/mm3 (4.6-6.20); Red Cell Distribution Width 13.2 % (11.5-14.5); White Blood Count 6.5 K/mm3 (4.5-10.0)
[2022-04-02 09:48] LABS: Anion Gap 4 mmol/L (8-16); Blood Urea Nitrogen 23 mg/dL (9-20); Carbon Dioxide 28 mmol/L (22-30); Chloride 105 mmol/L (98-107); Estimated Glomerular Filt Rate > 60; Glucose 108 mg/dL (65-110); Potassium 4.6 mmol/L (3.4-5.0); Sodium 137 mmol/L (137-145)
== END 2022-04-02 07:48 | disposition home or self-care (01) ==
LOC: ANHSURGERY 07:51
PROVIDERS: PCP Family Medicine; Visit Provider Surgery
DX: Z01.812 Encounter for preprocedural laboratory examination (principal); Z01.810 Encounter for preprocedural cardiovascular examination; K57.92 Diverticulitis of intestine, part unspecified, without perforation or abscess without bleeding
CPT/HCPCS: 36415; 80048; 85025; 86850; 86900; 86901; 93005

== ENCOUNTER 2022-04-12 16:15 | Inpatient (IN) | payer OTHER, SELFPAY ==
--- NOTE | 2022-04-02 08:26 | PC.NURSE ---
Report to the Outpatient Waiting Room, entrance under the green pavilion located off [facility], at time __1000 on date _04/12/22 . Planned Procedure Time: __1200 . Time changes happen often and if your time is changed the preop area will call you the afternoon before. - You and your visitor will be asked to self-screen and do not enter if you have any COVID symptoms. - Only one visitor is requested with a max of two and NO children visitors are allowed at this time. - The patient visitor may be requested to leave or wait in car when not with patient due to distancing restrictions. - A mask is optional within the hospital at this time. Patients may have clear liquids (water, carbonated beverages, clear teas, apple juice) until 3 hours prior to surgery with a maximum of 20 ounces. - No food from midnight until time of surgery - Infants may have breast milk until 4 hours before surgery, formula 6 hours prior to surgery. - Children will be allowed to drink immediately following surgery. If applicable, please bring a bottle or sippy cup to assist with drinking. Juice, water, soda, and popsicles are readily available. For infants on formula, please bring formula the day of surgery. Pacifiers are allowed. Take the following medications with a SIP of water the morning of surgery: ___NONE DO NOT STOP ANY OF YOUR OTHER PRESCRIPTION MEDICATIONS PRIOR TO SURGERY ?EXCEPT THE FOLLOWING Medications to discontinue per physician __ALL VITAMINS/SUPPLEMENTS 3 DAYS PRE OP .LAST DOSE04/08/22 HIBICLENS SHOWER DAY BEFORE SURGERY AND MORNING OF SURGERY Please no make-up, nail georgian, hairspray, perfume, deodorant, or body powder the day of surgery. No jewelry (including any body piercings) or valuables the day of surgery, leave them at home. Please take a shower or bath the night before, or the morning of, surgery with an antibacterial soap. Wear comfortable, loose fitting clothing. Children are encouraged to wear pajamas. - Jewelry must be removed prior to entering the operating room. Rings and piercings that are not removed may be cut off. - The hospital will not accept responsibility for valuables. - Please leave all valuables, including medications, at home the day of surgery. If you are going home after surgery, a licensed sprinkling truck driver must drive you home. - NO public transportation without another adult if you receive anesthesia. - We recommend that an adult stay with you for 24 hours following discharge. - We also recommend that you do not drive, make important decision, drink alcoholic beverages, or take any drugs that were not prescribed by your health care provider for at least 24 hours after your discharge time. Follow any additional instructions given to you from your surgeon. If you or anyone in your household have experienced Covid symptoms in the past week, please notify your surgeon or the nurse liaison at the phone number below for possible testing. VERBAL AND WRITTEN instructions given to _PATIENT AND WIFE and asked if any additional questions and then verbalized understanding. Patient advised to call surgeon office or pre surgery nurse liaison [phone] if any additional questions.
[2022-04-02 09:07] VITALS: BP 150/92; PULSE 68; RESP 18; TEMP 36.7; O2SAT 100; BMI 36.1
[2022-04-12] VITALS (9 sets, daily range): BP systolic 111–133; BP diastolic 69–93; PULSE 83–105; RESP 10–18; TEMP 36.2–37.5; O2SAT 94–98; BMI 34.3
--- NOTE | 2022-04-12 11:00 | WPDANESEPPF ---
Anes - Initial Pre Proc Eval Procedure: Operation Date: 04/12/22 12:00 Proposed Procedures p Hand Assisted Laparoscopic Sigmoidectomy - Vasile Soliman MD Date/Time: 04/12/22 11:00 Surgeon: Vasile Soliman MD Pre Op Diagnosis: diverticulitis Patient Data Age: 47 Gender: M Height: 1.8 m Weight: 111.8 kg Last Vital Signs Temp 97.1 F L 04/12/22 10:20 Pulse 92 04/12/22 10:20 Resp 16 04/12/22 10:20 BP 121/90 04/12/22 10:20 Pulse Ox 98 04/12/22 10:20 O2 Del Method Room Air 04/12/22 10:20 Allergies Allergy/AdvReac Type Severity Reaction Status Date / Time piperacillin Allergy Unknown Rash Verified 04/12/22 10:59 tazobactam Allergy Unknown Rash Verified 04/12/22 10:59 sulfamethoxazole AdvReac Intermediate Rash Verified 04/12/22 10:59 [From Bactrim] trimethoprim [From Bactrim] AdvReac Intermediate Rash Verified 04/12/22 10:59 Home Medications Medication Instructions Recorded Confirmed Type fexofenadine 180 mg tablet 180 mg PO DAILY 01/09/21 04/02/22 History (Michell Allergy) fluticasone propionate 50 1 spray intranasal DAILY 01/09/21 04/02/22 History mcg/actuation nasal spray,suspension (Flonase Allergy Relief) multivitamin 1 tablet PO DAILY 01/09/21 04/12/22 History allopurinol 300 mg tablet 300 mg PO DAILY #90 tabs 11/23/21 04/02/22 Rx hydrocodone 5 mg-acetaminophen 325 1 tablet PO DAILY PRN pain 01/15/22 04/02/22 History mg tablet lisinopril 10 mg tablet See Rx Instructions .Route 01/15/22 04/02/22 Rx .COMPLEX #180 tabs ibuprofen 600 mg tablet 600 mg PO TID PRN pain #14 tabs 03/09/22 04/02/22 Rx ciprofloxacin HCl 500 mg tablet 500 mg PO .COMPLEX #1 tablet 03/29/22 04/12/22 Rx metronidazole 500 mg tablet 500 mg PO .COMPLEX #3 tabs 03/29/22 04/12/22 Rx omeprazole magnesium 20 mg 20 mg PO PRN PRN Heartburn 04/02/22 04/02/22 History tablet,delayed release (Prilosec OTC) Patient hx anesthesia problems: none Family hx anesthesia problems: none Results Review: All pre-operative results and documents have been reviewed as part of the pre-operative evaluation. [facility] Past Medical History Medical History (Updated 03/29/22 @ 10:28 by Tiara Puckett) Adult BMI 37.0-37.9 kg/sq m Anxiety Anxiety disorder, unspecified Arm fracture, left Arthralgia of ankle, right Asthma BMI 34.0-34.9,adult BMI 34.0-34.9,adult BMI 36.0-36.9,adult Decreased libido Diverticulitis Foot fracture, right GERD (gastroesophageal reflux disease) Gout Hypertension Idiopathic gout, unspecified site Nasal sinus cyst Screening PSA (prostate specific antigen) Seasonal allergies UTI (urinary tract infection) Vitamin D deficiency Surgical History Surgical History H/O removal of cyst nasal H/O vasectomy H/O wisdom tooth extraction History of hip surgery bilateral Hx of cholecystectomy Family History Family History Grandparent Family history of malignant neoplasm of brain Father Heart disease Cancer Mother No problems noted. Sibling Diabetes mellitus Thyroid activity decreased Other Cerebrovascular accident Family history of arthritis Family history of cardiovascular disease Family history of gout Family history of malignant neoplasm Hypertension Social History Social History Years smoked: 13 Smoking status: Former smoker Tobacco type: cigarettes Second hand tobacco smoke exposure: Yes Smoking end date: 03/31/22 Alcohol intake: current Drinks per week: 5 Alcohol use details: beer or mixed drinks socially Substance use: never Substance use type: does not use Living arrangements: with family Additional living arrangements comments: and daughters Occupation/Education: occupation Additional occupation/education c
[2022-04-12] MEDS: LACTATED RINGERS 1,000 ML 30 ML IV CONT ×2 (11:20→15:20)
[2022-04-12] MEDS: KETOROLAC 15 MG/ML VIAL (*BKC) IV PUSH (11:25)
[2022-04-12] MEDS: ACETAMINOPHEN 500 MG TABLET 1000 MG PO (11:25)
[2022-04-12] MEDS: ALVIMOPAN 12 MG CAPSULE PO (11:32)
--- NOTE | 2022-04-12 11:37 | WPDHPUPDATE1 ---
History and Physical Update Update Date/Time: 04/12/22 11:37 History and Physical has been reviewed, including an updated exam of the patient. There are NO changes in the patient's condition. Risks, benefits, and alternatives have been discussed and questions answered. Patient agrees to proceed with procedure.
[2022-04-12] MEDS: ceFAZolin 2 GM/D5W 50 ML 2 GM/50 ML BAG IVPB (12:02)
[2022-04-12] MEDS: metroNIDAZOLE 500 MG/ISO 100ML 500 MG/100 ML BAG 100 MG IVPB (12:15)
[2022-04-12] MEDS: BUPIVACAINE/EPINEPHRINE 0.5% 50 ML VIAL INFILTRATE (12:42)
[2022-04-12] MEDS: fentaNYL CITRATE INJ (*CRX) 100 MCG/2 ML VIAL 25 MCG IV PUSH ×8 (15:30→16:10)
--- NOTE | 2022-04-12 15:37 | W.PM.PROC2 ---
Procedure Note - Detailed Date of Procedure 04/12/22 Pre-op Diagnosis diverticulitis Post-op Diagnosis Same Procedure Performed Hand access laparoscopic sigmoidectomy with stapled Number 33 EEA colorectal anastomosis Surgeon Vasile Soliman MD Automatic Oven Operator Marilynn PINEDA Anesthesia General and Local (0.5% Marcaine with epinephrine) Indications Patient is a 47-year-old man who has had many episodes of acute diverticulitis. He has had a colonoscopy which was negative for malignancy. He was seen in the office and after discussion wishes to proceed with laparoscopic sigmoid colon resection to avoid further episodes. Findings No severe inflammation was noted. The were many diverticuli in the sigmoid colon. No abscesses or stricture were noted. Description of Procedure Patient was taken to surgery and induced into general anesthesia. The abdomen was prepped and draped. He was in lithotomy in Butch stirrups. Brown catheter was placed. Rectal irrigation and rectal tube were placed. We began the surgery by infiltrating local anesthetic in a midline and access incision at and just below the umbilicus. Incision was made dissection was carried down through the midline fascia. We entered the peritoneal cavity and extended the opening the length of the wound. The Bala wound guard was then placed in the abdomen. The GelPort was placed. With the hand in the abdomen a 10 11 port in the left mid abdomen was then placed after infiltrating additional local. A 10 11 was then placed in the left midline abdomen. Finally a right-sided 12 mm port was placed. Patient was placed in Trendelenburg. We took down some adhesions of the sigmoid colon. The sigmoid and descending colon were lengthy and fairly floppy on the mesentery once these adhesions were taken down. I checked the entire sigmoid colon and found no severely inflamed or thickened areas. I found the left ureter and exposed it over at least fiber 6 cm. It was carefully avoided throughout the procedure. We then took down some additional adhesions and scored the mesentery at the upper rectum distal sigmoid just beyond the sacral promontory. I then elevated the sigmoid and found the inferior mesenteric artery as it was coming off the aorta. This was divided with the LigaSure. LigaSure was used for all cautery hemostasis as well as most of the dissection. I then divided the mesentery to the sigmoid up to the distal descending colon and included some of the distal descending colon. I divided the mesentery up to an area of distal descending colon that had few if any diverticuli. It still had adequate length to reach into the pelvis. I cleaned the mesentery from the area of the bowel were I plan to make the proximal line of resection. I then went down to the sigmoid mesentery and continued dissecting towards rectum. The LigaSure was again used. Mesenteric vessels were thoroughly cauterized and divided with the LigaSure. I then chose the point of distal line of resection in the upper rectum. I divided the mesentery up to this point and then also freed the mesentery from the upper rectum. There been little if any bleeding at all during this procedure. We then stopped insufflation and removed the GelPort. I pulled up the sigmoid colon was able to find the area that I had cleared of mesentery at the upper rectum. I used the contour stapler and divided the upper rectum from the sigmoid at this location. The staple line retracted into the pelvis. I then pulled the sigmoid and distal descending colon up wound. The distal descending colon where I had skeletonized the bowel was quite viable. I used the TLC 75 stapler to divide the distal descending colon or proximal line of resection. This resulted in nearly 2 ft of sigmoid and distal descending colon that was passed off as a specimen. We freed the distal descending colon of any additional mesenteric fat at the staple line. I used the disposable pursestring
--- NOTE | 2022-04-12 16:30 | ADMGEN ---
This patient, Vance Fair, was admitted to Medical Room 347-01. Patient/family oriented to hospital policies and general routines including ID bracelet, bed and alarms, visiting hours, pain management, procedures, bathroom and other care routines, personal items, smoking policy, room service/diet, and visiting hours. Information on how to activate the Rapid Response Team has been discussed. Patient/Family are encouraged to report perceived risks to care and to ask questions if they do not understand what they are told or what they should do.
[2022-04-12] MEDS: LACTATED RINGERS 1,000 ML 100 ML IV CONT (16:36)
[2022-04-12] MEDS: MORPHINE SULFATE (*CRX) 2 MG/ML INJ IV PUSH (17:11)
[2022-04-12 17:31] LABS: Estimated CRCL calculation 85 ml/min; Estimated Glomerular Filt Rate > 60
[2022-04-12] MEDS: HYDROcodone/acetaminophen (*CRX) 10-325 MG TABLET 1 TAB PO ×2 (18:14→23:25)
[2022-04-12] MEDS: MORPHINE SULFATE (*CRX) 4 MG/ML INJ IV PUSH (19:23)
[2022-04-12] MEDS: IBUPROFEN IV 800 MG/200 ML 800 MG/200 ML BAG 400 MG IVPB (21:02)
[2022-04-13 00:17] VITALS: BP 109/65; PULSE 95; RESP 20; TEMP 36.7; O2SAT 95
[2022-04-13] MEDS: LACTATED RINGERS 1,000 ML 100 ML IV CONT (02:42)
[2022-04-13] MEDS: ONDANSETRON INJ 4 MG/2 ML VIAL IV PUSH ×3 (02:42→21:51)
[2022-04-13] MEDS: IBUPROFEN IV 800 MG/200 ML 800 MG/200 ML BAG 400 MG IVPB ×3 (03:34→18:33)
[2022-04-13 05:28] VITALS: BP 115/74; PULSE 94; RESP 18; TEMP 36.8; O2SAT 96
[2022-04-13 05:43] LABS: Hematocrit 41.2 % (42.0-52.0); Mean Corpuscular Hemoglobin 29.9 pg (26-34); Mean Platelet Volume 9.9 fl (7.4-10.4); Platelet Count Result 197 k/mm3 (150-375); Red Blood Count 4.68 M/mm3 (4.6-6.20); Red Cell Distribution Width 13.1 % (11.5-14.5); White Blood Count 12.7 K/mm3 (4.5-10.0)
[2022-04-13 05:55] LABS: Anion Gap 5 mmol/L (8-16); Blood Urea Nitrogen 15 mg/dL (9-20); Calcium 8.1 mg/dL (8.4-10.2); Carbon Dioxide 25 mmol/L (22-30); Chloride 103 mmol/L (98-107); Estimated CRCL calculation 101 ml/min; Estimated Glomerular Filt Rate > 60; Glucose 118 mg/dL (65-110); Potassium 3.7 mmol/L (3.4-5.0); Sodium 133 mmol/L (137-145)
--- NOTE | 2022-04-13 07:43 | WPDANESPN ---
Anes - Prog Note Post-Op Date/Time: 04/13/22 07:43 Cardiovascular status: normal Respiratory status: normal Airway patency: baseline Mental status: baseline Post-Op hydration status: normal Vital Signs: Last Vital Signs Temp 36.8 C 04/13/22 05:28 Pulse 94 04/13/22 05:28 Resp 18 04/13/22 05:28 BP 115/74 04/13/22 05:28 Pulse Ox 96 04/13/22 05:28 O2 Del Method Room Air 04/12/22 16:30 O2 Flow Rate 6 04/12/22 15:20 Pain Score (VAS): 06/20 I/O: Intake & Output 04/12/22 04/12/22 04/13/22 15:59 23:59 07:59 Intake Total 150 1160 1600 Output Total 700 Balance 150 1160 900 Laboratory Tests 04/13/22 05:21 04/13/22 05:21 04/12/22 04/13/22 04/13/22 17:04 05:21 05:21 WBC 12.7 H RBC 4.68 Hgb 14.0 Hct 41.2 L MCV 88.0 MCH 29.9 MCHC 34.0 RDW 13.1 Plt Count 197 MPV 9.9 Sodium 133 L Potassium 3.7 Chloride 103 Carbon Dioxide 25 Anion Gap 5 L BUN 15 D Creatinine 1.20 1.00 Estim Creat Clear Calc 85 101 Estimated GFR > 60 > 60 Glucose 118 H Calcium 8.1 L Post-procedural complaints: none Patient Feedback: Patient satisfied with anesthetic care.
[2022-04-13] MEDS: HYDROcodone/acetaminophen (*CRX) 5-325 MG TABLET 1 TAB PO (07:49)
[2022-04-13 08:00] VITALS: BP 121/81; PULSE 86; RESP 12; TEMP 36.7; O2SAT 93
[2022-04-13] MEDS: allopurinoL 300 MG TABLET PO (09:14)
[2022-04-13] MEDS: lisinopriL 20 MG TABLET BY MOUTH (09:14)
[2022-04-13] MEDS: PANTOPRAZOLE 40 MG TABLET PO (09:14)
[2022-04-13] MEDS: ENOXAPARIN 40 MG/0.4 ML SYRINGE SUB-Q (09:16)
[2022-04-13] MEDS: FLUTICASONE PROPIONATE 0.05% NA SPR 16 GM BTL (*BKC) 1 SPRAY NASAL (09:17)
[2022-04-13] MEDS: LORATADINE 10 MG TABLET PO (09:24)
--- NOTE | 2022-04-13 10:46 | PM.PNGS ---
Progress Note: A&P Assessment and Plan (1) Diverticulitis: Code(s): K57.92 - Diverticulitis of intestine, part unspecified, without perforation or abscess without bleeding Status: Chronic Assessment and Plan: Recurrent cases of diverticulitis. Now status post sigmoidectomy. (2) S/P colon resection: Code(s): Z90.49 - Acquired absence of other specified parts of digestive tract Status: Acute Assessment and Plan: Doing well postop day 1. Will start some ambulation and advance diet to regular. Still taking some IV analgesics. No bowel sounds today. Await return of bowel function and better pain control before discharge. Recheck labs and exam again tomorrow. Subjective Subjective Date/Time Seen: 04/13/22 10:46 Post Op day: 1 Patient reports: pain is less, tolerating liquids well, no flatus, no bowel movement and afebrile Review of Systems Review of Systems: All systems reviewed & are unremarkable except as noted in HPI and below (HPI and those items noted below) Constitutional: Constitutional: Denies chills and Denies fever(s) Cardiovascular: Cardiovascular: Denies chest pain, Denies diaphoresis, Denies dyspnea and Denies paroxysmal nocturnal dyspnea Respiratory: Respiratory: Denies chest congestion, Denies cough and Denies dyspnea Integumentary/Breasts: Skin/Breast: Denies lesions and Denies rash Exam Const: General: comfortable and no acute distress; No confusion Orientation/consciousness: patient oriented x3 and No confusion GI: Inspection: incision ( trocar sites healing well, dressing dry and intact) and obesity GI Palp: Yes Soft to palpation, Yes Tenderness to palpation present (GI) ( mostly lower abdomen at incision), No Guarding due to palpation present (GI) and No Rebound tenderness present Auscultation: absent bowel sounds Neuro: General: patient oriented x3, no focal motor deficits and No confusion Extrem: General: no calf tenderness and no edema Psych: Affect: normal affect Insight: Good insight present (Psych) Judgement: Good judgement present (Psych) Objective Data Vital Signs Vital Signs: Vital Signs - 24 hr 04/12/22 15:20 04/12/22 15:50 04/12/22 16:05 Temperature 36.3 C L Pulse Rate 96 90 90 Respiratory Rate 10 L 14 18 Blood Pressure 113/69 129/93 H 128/85 Pulse Oximetry 98 95 98 Oxygen Delivery Simple Face Mask Room Air Room Air Oxygen Flow Rate 6 04/12/22 16:15 04/12/22 15:35 04/12/22 16:30 Temperature 36.2 C L Pulse Rate 94 83 Respiratory Rate 18 12 Blood Pressure 128/84 133/90 Pulse Oximetry 94 98 Oxygen Delivery Room Air Room Air Room Air Oxygen Flow Rate 04/12/22 16:15 04/12/22 16:30 04/12/22 17:00 Temperature 37.1 C 36.9 C 36.8 C Pulse Rate 85 89 98 Respiratory Rate 12 16 16 Blood Pressure 111/75 128/82 128/80 Pulse Oximetry 97 97 95 Oxygen Delivery Oxygen Flow Rate 04/12/22 21:04 04/13/22 00:17 04/13/22 05:28 Temperature 37.5 C 36.7 C 36.8 C Pulse Rate 105 H 95 94 Respiratory Rate 18 20 18 Blood Pressure 126/79 109/65 115/74 Pulse Oximetry 94 95 96 Oxygen Delivery Oxygen Flow Rate 04/13/22 08:00 Temperature 36.7 C Pulse Rate 86 Respiratory Rate 12 Blood Pressure 121/81 Pulse Oximetry 93 Oxygen Delivery Oxygen Flow Rate Intake/Output Intake/Output: Intake & Output 04/10/22 04/11/22 04/12/22 04/13/22 23:59 23:59 23:59 23:59 Intake Total 1310 1840 Output Total 700 Balance 1310 1140 Meds/Results Medications: Active Medications Generic Name Dose Route Start Last Admin Trade Name Freq PRN Reason Stop Dose Admin Acetaminophen 500 mg 04/12/22 16:15 Acetaminophen 500 Mg Tablet PO Q6H PRN Mild Pain (1-3) or Fever Hydrocodone Bitart/Acetaminophen 1 tab 04/12/22 16:15 04/13/22 07:49 Hydrocodone/Acetaminophen (*Crx) 5-325 Mg Tablet PO 1 tab Q4H PRN Administration Pain Rated 4-6 Hydrocodone Bitart/Acetaminophen 1 tab
[2022-04-13] MEDS: HYDROcodone/acetaminophen (*CRX) 10-325 MG TABLET 1 TAB PO ×2 (11:50→17:09)
[2022-04-13 12:00] VITALS: BP 131/86; PULSE 95; RESP 16; TEMP 36.8; O2SAT 92
[2022-04-13 14:00] VITALS: BP 125/81; PULSE 96; RESP 16; TEMP 36.8; O2SAT 96
[2022-04-13 21:48] VITALS: BP 136/89; PULSE 99; RESP 16; TEMP 36.2; O2SAT 95
[2022-04-13] MEDS: ALVIMOPAN 12 MG CAPSULE PO (21:52)
[2022-04-13] MEDS: ACETAMINOPHEN 500 MG TABLET PO (21:54)
[2022-04-14] MEDS: HYDROcodone/acetaminophen (*CRX) 10-325 MG TABLET 1 TAB PO (00:10)
[2022-04-14 04:03] VITALS: BP 136/88; PULSE 94; RESP 18; TEMP 36.6; O2SAT 93
[2022-04-14] MEDS: IBUPROFEN IV 800 MG/200 ML 800 MG/200 ML BAG 400 MG IVPB ×4 (04:25→23:56)
[2022-04-14 05:53] LABS: Hematocrit 40.7 % (42.0-52.0); Hemoglobin 13.1 g/dL (14.0-18.0); Mean Corpuscular HGB Conc 32.2 g/dl (32-36); Mean Platelet Volume 10.2 fl (7.4-10.4); Platelet Count Result 173 k/mm3 (150-375); Red Blood Count 4.52 M/mm3 (4.6-6.20); Red Cell Distribution Width 13.1 % (11.5-14.5); White Blood Count 7.9 K/mm3 (4.5-10.0)
[2022-04-14 06:08] LABS: Anion Gap 5 mmol/L (8-16); Blood Urea Nitrogen 11 mg/dL (9-20); Calcium 8.1 mg/dL (8.4-10.2); Carbon Dioxide 25 mmol/L (22-30); Chloride 104 mmol/L (98-107); Estimated CRCL calculation 112 ml/min; Estimated Glomerular Filt Rate > 60; Glucose 111 mg/dL (65-110); Potassium 3.5 mmol/L (3.4-5.0); Sodium 134 mmol/L (137-145)
[2022-04-14] MEDS: ALVIMOPAN 12 MG CAPSULE PO ×2 (08:44→21:39)
[2022-04-14] MEDS: LORATADINE 10 MG TABLET PO (08:44)
[2022-04-14] MEDS: PANTOPRAZOLE 40 MG TABLET PO (08:44)
[2022-04-14] MEDS: lisinopriL 20 MG TABLET BY MOUTH (08:44)
[2022-04-14] MEDS: allopurinoL 300 MG TABLET PO (08:44)
[2022-04-14] MEDS: FLUTICASONE PROPIONATE 0.05% NA SPR 16 GM BTL (*BKC) 1 SPRAY NASAL (08:45)
[2022-04-14] MEDS: ENOXAPARIN 40 MG/0.4 ML SYRINGE SUB-Q (08:45)
--- NOTE | 2022-04-14 12:52 | PM.PNGS ---
Progress Note: A&P Assessment and Plan (1) Diverticulitis: Code(s): K57.92 - Diverticulitis of intestine, part unspecified, without perforation or abscess without bleeding Status: Chronic Assessment and Plan: Recurrent cases of diverticulitis. Now status post sigmoidectomy. (2) S/P colon resection: Code(s): Z90.49 - Acquired absence of other specified parts of digestive tract Status: Acute Assessment and Plan: Doing well postop day 2. Tolerating regular. Still taking some IV analgesics. Await return of bowel function and better pain control before discharge. Recheck labs and exam again tomorrow. Subjective Subjective Date/Time Seen: 04/14/22 12:52 Interval history: Passing flatus. No BM yet. Pain control slowly improving. No nausea or vomiting. Tolerating regular diet. Exam GI: Inspection: incision (clean/dry/intact) GI Palp: Yes Soft to palpation and Yes Tenderness to palpation present (GI) (incisional) Objective Data Vital Signs Vital Signs: Vital Signs - 24 hr 04/13/22 14:00 04/13/22 21:48 04/14/22 04:03 Temperature 36.8 C 36.2 C L 36.6 C Pulse Rate 96 99 94 Respiratory Rate 16 16 18 Blood Pressure 125/81 136/89 136/88 Pulse Oximetry 96 95 93 Intake/Output Intake/Output: Intake & Output 04/11/22 04/12/22 04/13/22 04/14/22 23:59 23:59 23:59 23:59 Intake Total 1310 2840 740 Output Total 700 Balance 1310 2140 740 Meds/Results Medications: Active Medications Generic Name Dose Route Start Last Admin Trade Name Freq PRN Reason Stop Dose Admin Acetaminophen 500 mg 04/12/22 16:15 04/13/22 21:54 Acetaminophen 500 Mg Tablet PO 500 mg Q6H PRN Administration Mild Pain (1-3) or Fever Hydrocodone Bitart/Acetaminophen 1 tab 04/12/22 16:15 04/13/22 07:49 Hydrocodone/Acetaminophen (*Crx) 5-325 Mg Tablet PO 1 tab Q4H PRN Administration Pain Rated 4-6 Hydrocodone Bitart/Acetaminophen 1 tab 04/12/22 16:15 04/14/22 00:10 Hydrocodone/Acetaminophen (*Crx) 10-325 Mg Tablet PO 1 tab Q4H PRN Administration Pain Rated 7-10 Allopurinol 300 mg 04/13/22 09:00 04/14/22 08:44 Allopurinol 300 Mg Tablet PO 300 mg DAILY [facility] Administration Alvimopan 12 mg 04/13/22 21:00 04/14/22 08:44 Alvimopan 12 Mg Capsule PO 04/20/22 20:59 12 mg Q12HR [facility] Administration Enoxaparin Sodium 40 mg 04/13/22 09:00 04/14/22 08:45 Enoxaparin 40 Mg/0.4 Ml Syringe SUB-Q 40 mg DAILY [facility] Administration Fluticasone Propionate 1 spray 04/13/22 09:00 04/14/22 08:45 Fluticasone Propionate 0.05% Na Spr 16 Gm Btl (*Bkc) NASAL 1 spray DAILY [facility] Administration Ibuprofen 800 mg in 200 mls @ 400 mls/hr 04/12/22 16:15 04/14/22 12:01 Caldolor 800 Mg/200 Ml IVPB 400 mls/hr Q6H PRN Administration Pain Rated 1-3 Lisinopril 20 mg 04/13/22 09:00 04/14/22 08:44 Lisinopril 20 Mg Tablet BY MOUTH 20 mg QAM [facility] Administration Loratadine 10 mg 04/13/22 09:00 04/14/22 08:44 Loratadine 10 Mg Tablet PO 10 mg DAILY [facility] Administration Morphine Sulfate 2 mg 04/12/22 16:15 04/12/22 17:11 Morphine Sulfate (*Crx) 2 Mg/Ml Inj IV PUSH 2 mg Q2H PRN Administration Pain Rated 4-6 Morphine Sulfate 4 mg 04/12/22 16:15 04/12/22 19:23 Morphine Sulfate (*Crx) 4 Mg/Ml Inj IV PUSH 4 mg Q2H PRN Administration Pain Rated 7-10 Naloxone HCl 0.1 mg 04/12/22 16:15 Naloxone Hcl 0.4 Mg/Ml Vial IV PUSH Q2M PRN Opiate Reversal Ondansetron HCl 4 mg 04/12/22 16:15 04/13/22 21:51 Ondansetron Inj 4 Mg/2 Ml Vial IV PUSH 4 mg Q4H PRN Administration Nausea And Vomiting Pantoprazole Sodium 40 mg 04/13/22 09:00 04/14/22 08:44 Pantoprazole 40 Mg Tablet PO 40 mg QAM [facility] Administration Labs Labs: Laboratory Results - last 24 hr 04/14/22 04/14/22 05:14 05:14 WBC 7.9 RBC 4.52 L Hgb 13.1 L Hct 40.7 L MCV 90.0 MCH 29.0
[2022-04-14] MEDS: ACETAMINOPHEN 500 MG TABLET PO (21:40)
[2022-04-14 22:00] VITALS: BP 144/89; PULSE 85; RESP 16; TEMP 35.8; O2SAT 97
[2022-04-15 05:21] LABS: Hematocrit 39.7 % (42.0-52.0); Hemoglobin 13.1 g/dL (14.0-18.0); Mean Corpuscular Hemoglobin 29.2 pg (26-34); Mean Corpuscular Volume 88.6 fl (80-100); Mean Platelet Volume 9.6 fl (7.4-10.4); Platelet Count Result 198 k/mm3 (150-375); Red Blood Count 4.48 M/mm3 (4.6-6.20); Red Cell Distribution Width 12.7 % (11.5-14.5); White Blood Count 5.9 K/mm3 (4.5-10.0)
[2022-04-15 05:39] LABS: Anion Gap 5 mmol/L (8-16); Blood Urea Nitrogen 11 mg/dL (9-20); Calcium 8.4 mg/dL (8.4-10.2); Carbon Dioxide 27 mmol/L (22-30); Chloride 104 mmol/L (98-107); Estimated CRCL calculation 112 ml/min; Estimated Glomerular Filt Rate > 60; Glucose 106 mg/dL (65-110); Potassium 3.6 mmol/L (3.4-5.0); Sodium 136 mmol/L (137-145)
[2022-04-15 07:00] VITALS: BP 144/90; PULSE 77; RESP 16; TEMP 35.9; O2SAT 97
[2022-04-15] MEDS: ENOXAPARIN 40 MG/0.4 ML SYRINGE SUB-Q (08:32)
[2022-04-15] MEDS: LORATADINE 10 MG TABLET PO (08:33)
[2022-04-15] MEDS: FLUTICASONE PROPIONATE 0.05% NA SPR 16 GM BTL (*BKC) 1 SPRAY NASAL (08:33)
[2022-04-15] MEDS: allopurinoL 300 MG TABLET PO (08:33)
[2022-04-15] MEDS: lisinopriL 20 MG TABLET BY MOUTH (08:33)
[2022-04-15] MEDS: ALVIMOPAN 12 MG CAPSULE PO (08:33)
[2022-04-15] MEDS: HYDROcodone/acetaminophen (*CRX) 5-325 MG TABLET 1 TAB PO ×2 (09:53→14:27)
[2022-04-15] MEDS: PANTOPRAZOLE 40 MG TABLET PO (09:54)
--- NOTE | 2022-04-15 11:23 | PM.DS ---
DS: Admitting Diagnosis Discharge Date 04/15/2022 Admitting Diagnosis Sigmoid diverticulitis, hypertension, asthma DS: Discharge Diagnosis Discharge Diagnosis (1) Diverticulitis: Code(s): K57.92 - Diverticulitis of intestine, part unspecified, without perforation or abscess without bleeding Status: Chronic (2) S/P colon resection: Code(s): Z90.49 - Acquired absence of other specified parts of digestive tract Status: Acute (3) Hypertension: Qualifiers: Hypertension type: primary hypertension Qualified Code(s): I10 - Essential (primary) hypertension Code(s): I10 - Essential (primary) hypertension Status: Acute (4) Asthma: Code(s): J45.909 - Unspecified asthma, uncomplicated Status: Acute DS: Summary Hospital Course Reason for hospitalization: Sigmoid diverticulitis Hospital Course: This is a 47-year-old man who presented for hand access laparoscopic sigmoidectomy on 04/12/[address] Soliman. He had had multiple prior episodes diverticulitis in the past. Decision was made to proceed with sigmoid resection to prevent recurrent episodes of diverticulitis. He was admitted to the surgical floor postoperatively and was initially placed on clear liquid diet. His diet was gradually advanced as tolerated to a regular diet. His pain control was transitioned from IV to oral pain meds. He was remaining hemodynamically stable and passing flatus. He was tolerating a regular diet without any bloating or nausea. He was discharged on 04/15/2022. Status at Discharge Functional status at discharge: independent ambulation Overall status at discharge: patient is progressing back to baseline Time Spent with Patient Time attestation: Total time spent providing and/or coordinating discharge services: Time spent: Less than 30 minutes Exam Resp: Effort & Inspection: normal respiratory effort Auscultation: clear to auscultation bilaterally Cardio: Rate: regular rate Rhythm: regular rhythm Heart sounds: S1 normal heart sound present and S2 normal heart sound present GI: Inspection: normal to inspection and incision (Intact) GI Palp: Yes Soft to palpation, Yes Tenderness to palpation present (GI) (Incisional), No Guarding due to palpation present (GI) and No Rebound tenderness present Auscultation: normal bowel sounds DS: Data Data Completed and Pending Pending studies at discharge: Pending at discharge 04/12/22 14:44 Surgical [PTH] Routine Labs on day of discharge: Labs from last 24 hours 04/15/22 04/15/22 05:06 05:06 WBC 5.9 RBC 4.48 L Hgb 13.1 L Hct 39.7 L MCV 88.6 MCH 29.2 MCHC 33.0 RDW 12.7 Plt Count 198 MPV 9.6 Sodium 136 L Potassium 3.6 Chloride 104 Carbon Dioxide 27 Anion Gap 5 L BUN 11 Creatinine 0.90 Estim Creat Clear Calc 112 Estimated GFR > 60 Glucose 106 Calcium 8.4 Discharge Plan Discharge Attending physician on discharge: Vasile Soliman Discharging Clinician: Ever Bernal Patient Disposition: Home, Self-Care Activity: may shower and no straining Diet: regular Wound Care Instructions: keep dressing dry, remove dressing to shower and change dressing daily Discharge Instructions: Ambulate 3-4 x per day and as tolerated. No lifting over 15-20lbs. May bathe or shower. Stairs are OK. May drive a car in 3 days. Remove any dressings before shower and replace after. Continue to place fresh dressing over abdominal incision after daily shower. May leave incision open on Saturday04/18/22. Use dry 4x4s and tape for the dressing. Take MiraLax or Dulcolax as needed for any constipation or if it has been greater than 48 hours since last BM. Patient Instructions: Antibiotic Form Stand Alone Forms: General Discharge Information Follow-up/Referrals: Vasile Soliman MD [Physician] - 04/26/22 ( Keep scheduled postop appointment) Discharge Medications:
[2022-04-15] MEDS: polyethylene glycoL 3350 17 GM POWD.PACK PO (11:42)
== END 2022-04-15 15:00 | disposition home or self-care (01) | DRG 331 ==
LOC: ANH3MED 16:21
PROVIDERS: Admitting Provider Surgery; PCP Family Medicine; Visit Provider Surgery
PROC: 0D1E4Z4 Bypass Large Intestine to Cutaneous, Percutaneous Endoscopic Approach (ICD-10-PCS; principal; 2022-04-12 12:00)
DX: K57.32 Diverticulitis of large intestine without perforation or abscess without bleeding (principal); K21.9 Gastro-esophageal reflux disease without esophagitis; F41.9 Anxiety disorder, unspecified; J45.909 Unspecified asthma, uncomplicated; I10 Essential (primary) hypertension; E66.9 Obesity, unspecified; Z68.34 Body mass index [BMI] 34.0-34.9, adult; Z90.49 Acquired absence of other specified parts of digestive tract; Z87.891 Personal history of nicotine dependence
CPT/HCPCS: 36415; 80048; 82565; 85027; 88307; A9270; C1713; C1729; J0330; J0690; J1100; J1170; J1650; J1741; J1885; J2250; J2270; J2370; J2405; J2704; J2710; J3010; J7030; J7120

== ENCOUNTER 2023-01-06 10:27 | Emergency (ER) | payer OTHER, SELFPAY ==
[2023-01-06 10:43] VITALS: BP 106/87; PULSE 101; RESP 16; TEMP 36.7; O2SAT 98
--- NOTE | 2023-01-06 10:45 | ED.URI ---
HPI - URI/Sore Throat General Chief Complaint: Upper Respiratory Infection Stated Complaint: Flu symptoms Time Seen by Provider: 01/06/23 10:45 Source: patient, RN notes reviewed and old records reviewed Mode of arrival: ambulatory Limitations: no limitations History of Present Illness HPI Narrative: 47-year-old male presents to the [facility] with concerns for flu-like symptoms. Patient reports since yesterday he has felt bloated, abdominal pain, cramping, nausea, vomiting and diarrhea. Reports feeling feverish, did not measure temperature. Reports COVID tested home negative. History of a sigmoidectomy back in April Onset (ago): day(s) (1-2) Treatments prior to arrival: acetaminophen Related Data Home Medications Medication Instructions Recorded Confirmed fexofenadine 180 mg tablet 180 mg PO DAILY 01/09/21 05/16/22 ([facility]) fluticasone propionate 50 1 spray intranasal DAILY 01/09/21 05/16/22 mcg/actuation nasal spray,suspension (Flonase Allergy Relief) multivitamin 1 tablet PO DAILY 01/09/21 05/16/22 omeprazole magnesium 20 mg 20 mg PO PRN PRN Heartburn 04/02/22 05/16/22 tablet,delayed release (Prilosec OTC) Allergies Allergy/AdvReac Type Severity Reaction Status Date / Time piperacillin Allergy Unknown Rash Verified 01/06/23 10:33 tazobactam Allergy Unknown Rash Verified 01/06/23 10:33 sulfamethoxazole AdvReac Intermediate Rash Verified 01/06/23 10:33 [From Bactrim] trimethoprim [From Bactrim] AdvReac Intermediate Rash Verified 01/06/23 10:33 Review of Systems Review of Systems: All systems reviewed & are unremarkable except as noted in HPI and below Constitutional: Constitutional: Reports no additional constitutional complaints Eyes: Eyes: Reports no additional eye complaints ENT: Reports system reviewed and no additional complaints, except as documented Cardiovascular: Cardiovascular: Reports no additional cardiovascular complaints, Denies chest pain and Denies dyspnea Respiratory: Respiratory: Reports no additional respiratory complaints, Denies chest congestion, Denies cough and Denies dyspnea Gastrointestinal: Gastrointestinal: Reports as per HPI, Reports abdominal pain, Reports bloating, Reports diarrhea, Reports nausea and Reports vomiting Musculoskeletal: Musculoskeletal: Reports no additional musculoskeletal complaints Integumentary/Breasts: Skin/Breast: Reports system reviewed and no additional complaints, except as docu Neurologic: Reports system reviewed and no additional complaints, except as documented Psychiatric: Psychiatric: Reports no additional psychiatric complaints Allergic/Immunologic: Allergic/Immunologic: Reports no additional allergic/immunologic complaints [facility] Past Medical History Medical History Adult BMI 37.0-37.9 kg/sq m Anxiety Anxiety disorder, unspecified Arm fracture, left Arthralgia of ankle, right Asthma BMI 34.0-34.9,adult BMI 34.0-34.9,adult BMI 36.0-36.9,adult Decreased libido Diverticulitis Foot fracture, right GERD (gastroesophageal reflux disease) Gout Hypertension Idiopathic gout, unspecified site Nasal sinus cyst Screening PSA (prostate specific antigen) Seasonal allergies UTI (urinary tract infection) Vitamin D deficiency Surgical History Surgical History H/O removal of cyst nasal H/O vasectomy H/O wisdom tooth extraction History of colon surgery LUIGI sigmoidectomy on 04/12/22 History of hip surgery bilateral Hx of cholecystectomy Family History Family History Grandparent Family history of malignant neoplasm of brain Father Heart disease Cancer Mother No problems noted. Sibling Diabetes mellitus Thyroid activity decreased Other Cerebrovascular accident Family history of arthritis Family history of c
== END 2023-01-06 11:00 | disposition short-term general hospital (02) ==
PROVIDERS: Emergency Provider Nurse Practitioner; PCP Family Medicine
DX: R10.84 Generalized abdominal pain (principal); R11.2 Nausea with vomiting, unspecified; R19.7 Diarrhea, unspecified; Z87.891 Personal history of nicotine dependence; J45.909 Unspecified asthma, uncomplicated; K21.9 Gastro-esophageal reflux disease without esophagitis; M10.9 Gout, unspecified; I10 Essential (primary) hypertension; E55.9 Vitamin D deficiency, unspecified; M10.00 Idiopathic gout, unspecified site
CPT/HCPCS: 87804; 99213; G0463

== ENCOUNTER 2023-01-06 11:16 | Emergency (ER) | payer OTHER, SELFPAY ==
--- NOTE | ~2023-01-06 | XR_ITS ---
EXAMINATION: XR chest 2V DATE: 01/06/2023 13:26 INDICATION: Cough TECHNIQUE: PA and lateral views of the chest are obtained. COMPARISON: None available FINDINGS: The lungs are free of acute opacities. No pleural effusion or pneumothorax. The cardiomedia stinal silhouette is normal. There is mild thoracic spondylosis. IMPRESSION: 1. No acute cardiopulmonary abnormality. Reviewed, dictated and finalized at location A. [employer]ATING UNIT OPERATOR
--- NOTE | ~2023-01-06 | CT_ITS ---
EXAMINATION: CT abdomen pelvis w con INDICATION: Abdominal pain TECHNIQUE: Computed tomographic images of the abdomen and pelvis were obtained after the administrati on of 100 cc of Omnipaque 350 intravenous contrast. The dose-length product (DLP) was 1476.81 mGy-cm. Automated exposure control and iterative reconstruction technique were employed. COMPARISON: 03/09/2022 FINDINGS: Minimal dependent atelectasis is present in the lung bases. The heart size is normal. The l iver is diffusely low in attenuation when compared with the spleen, consistent with hepatic steatosis . Changes of cholecystectomy are noted. Punctate calcifications in an otherwise normal spleen likely represent healed granulomatous disease. The pancreas and adrenal glands are normal. The left kidney i s unremarkable. There is a 4 mm cyst of the right kidney. A surgical anastomosis is present in the si gmoid colon. There is liquid stool throughout the colon to the level of the rectum. There is a greate r than normal number of fluid-filled, nondistended small bowel loops. There is a fat-containing umbil ical hernia. The appendix is normal. There is mild thoracolumbar spondylosis. There is a left inguina l hernia containing fat. IMPRESSION: 1. Fluid-filled loops of nondistended large and small bowel, likely enterocolitis. There are two diff use hepatic steatosis. Reviewed, dictated and finalized at location A. EXIA TEACHER IMPRESSION: 1. Fluid-filled loops of nondistended large and small bowel, likely enterocolit is. There are two diffuse hepatic steatosis.
[2023-01-06 11:18] VITALS: BP 132/94; PULSE 100; RESP 16; TEMP 36.4; O2SAT 98
[2023-01-06] MEDS: SODIUM CHLORIDE 0.9% IV 1,000 ML 999 ML IV CONT (11:58)
[2023-01-06] MEDS: ONDANSETRON INJ 4 MG/2 ML VIAL IV PUSH (11:58)
--- NOTE | 2023-01-06 12:01 | ED.ABDPAIN ---
HPI - Abdominal Pain General Chief Complaint: Abdominal Pain Stated Complaint: abdominal pain with NVD - hx sigmoidectomy Time Seen by Provider: 01/06/23 11:58 History of Present Illness HPI narrative: Patient is a 47-year-old male with history of recurrent diverticulitis status post sigmoidectomy here with abdominal pain. He states that his symptoms began yesterday morning around 3:00 a.m.. He notes that they were associated with some diffuse abdominal cramping, distention and multiple episodes of vomiting and diarrhea. He denies any blood in his stool or vomit. He does note that it seems to be improving somewhat today and has had much less stool output. He endorses a subjective fever. He also endorses a mild cough, chest congestion and some nasal congestion. No known sick contacts however he did see multiple family members over and is unsure if he has been exposed to anything. He had 2 home negative COVID test and did go to an urgent care today who told him that he likely does not have influenza. They referred him into the emergency department for further evaluation. He states he has been taking some Tylenol at home with minimal relief of symptoms. No chest pain, no prior cardiac history. Related Data Home Medications Medication Instructions Recorded Confirmed fexofenadine 180 mg tablet 180 mg PO DAILY 01/09/21 05/16/22 ([facility] All[facility]) fluticasone propionate 50 1 spray intranasal DAILY 01/09/21 05/16/22 mcg/actuation nasal spray,suspension (Flonase Allergy Relief) multivitamin 1 tablet PO DAILY 01/09/21 05/16/22 omeprazole magnesium 20 mg 20 mg PO PRN PRN Heartburn 04/02/22 05/16/22 tablet,delayed release (Prilosec OTC) Allergies Allergy/AdvReac Type Severity Reaction Status Date / Time piperacillin Allergy Unknown Rash Verified 01/06/23 11:37 tazobactam Allergy Unknown Rash Verified 01/06/23 11:37 sulfamethoxazole AdvReac Intermediate Rash Verified 01/06/23 11:37 [From Bactrim] trimethoprim [From Bactrim] AdvReac Intermediate Rash Verified 01/06/23 11:37 Review of Systems Review of Systems: All systems reviewed & are unremarkable except as noted in HPI and below PMFSH Past Medical History Medical History Adult BMI 37.0-37.9 kg/sq m Anxiety Anxiety disorder, unspecified Arm fracture, left Arthralgia of ankle, right Asthma BMI 34.0-34.9,adult BMI 34.0-34.9,adult BMI 36.0-36.9,adult Decreased libido Diverticulitis Foot fracture, right GERD (gastroesophageal reflux disease) Gout Hypertension Idiopathic gout, unspecified site Nasal sinus cyst Screening PSA (prostate specific antigen) Seasonal allergies UTI (urinary tract infection) Vitamin D deficiency Surgical History Surgical History H/O removal of cyst nasal H/O vasectomy H/O wisdom tooth extraction History of colon surgery LUIGI sigmoidectomy on 04/12/22 History of hip surgery bilateral Hx of cholecystectomy Family History Family History Grandparent Family history of malignant neoplasm of brain Father Heart disease Cancer Mother No problems noted. Sibling Diabetes mellitus Thyroid activity decreased Other Cerebrovascular accident Family history of arthritis Family history of cardiovascular disease Family history of gout Family history of malignant neoplasm Hypertension Social History Social History Years smoked: 13 Smoking status: Former smoker Tobacco type: cigarettes Second hand tobacco smoke exposure: Yes Smoking end date: 08/14/22 Alcohol intake: current Drinks per week: 5 Alcohol use details: beer or mixed drinks socially Substance use: never Substance use type: does not use Lack of Transportation: No Lack of Food
[2023-01-06 12:11] LABS: Basophils Percent Auto 0.2 % (0.2-1.2); Eosinophils Absolute Auto 0.1 K/mm3 (0-0.3); Eosinophils Percent Auto 1.1 % (0-4.4); Hematocrit 50.1 % (42.0-52.0); Hemoglobin 16.9 g/dL (14.0-18.0); Immature Granulocyte Absolute 0.02 K/mm3 (0.00-0.031); Immature Granulocyte Percent A 0.4 % (0-0.5); Lymphocytes Absolute Auto 1.08 K/mm3 (0.9-3.2); Lymphocytes Percent Auto 20.1 % (18.3-44.2); Mean Corpuscular HGB Conc 33.7 g/dl (32-36); Mean Corpuscular Hemoglobin 29.3 pg (26-34); Mean Platelet Volume 9.9 fl (7.4-10.4); Monocytes Absolute Auto 0.4 K/mm3 (0.1-0.6); Monocytes Percent Auto 8.2 % (2.6-8.5); Neutrophils Absolute Auto 3.8 K/mm3 (1.3-6.7); Platelet Count Result 173 k/mm3 (150-375); Red Blood Count 5.76 M/mm3 (4.6-6.20); Red Cell Distribution Width 13.1 % (11.5-14.5); White Blood Count 5.4 K/mm3 (4.5-10.0)
[2023-01-06 12:23] LABS: Add Urine Microscopic? YES; Appearance Urine Cloudy (Clear); Bacteria Urine None Seen /hpf; Bilirubin Urine 1+ (Negative); Blood Urine 1+ (Negative); Color Urine Dark Yellow (Yellow); Glucose Urine UA Negative (Negative); Hyaline Casts Urine Present /lpf; Ketones Urine Trace mg/dL (Negative); Leukocyte Esterase Ur Trace LEU/UL (Negative); Need Manual Microscopic Reviewed; Nitrate Urine Negative (Negative); Protein Urine 1+ mg/dL (Negative); Specific Grav Ur 1.031 (1.001-1.035); Squamous Epithelial Cell Urine Few /hpf (Few); WBC Urine 0-5 /hpf
[2023-01-06 12:24] LABS: Alanine Aminotransferase 44 U/L (6-50); Albumin Level 4.4 g/dL (3.5-5.1); Alkaline Phosphatase 88 U/L (38-126); Anion Gap 12 mmol/L (8-16); Aspartate Amino Transferase 38 U/L (17-59); Bilirubin,Total 0.6 mg/dL (0.2-1.3); Blood Urea Nitrogen 17 mg/dL (9-20); Calcium 8.8 mg/dL (8.4-10.2); Carbon Dioxide 21 mmol/L (22-30); Chloride 103 mmol/L (98-107); Estimated CRCL calculation 86 ml/min; Estimated Glomerular Filt Rate > 60; Glucose 117 mg/dL (65-110); Lactic Acid Reflex 1.2 mmol/L (0.7-2.0); Lipase 44 U/L (23-300); Potassium 3.6 mmol/L (3.4-5.0); Sodium 136 mmol/L (137-145)
--- NOTE | 2023-01-06 12:29 | ECG_ITS ---
Measurements Intervals [place] Rate: 85 P: 51 MN: 173 QRS: 11 QRSD: 100 T: 31 QT: 360 QTc: 429 Interpretive Statements SINUS RHYTHM NONSPECIFIC T-WAVE ABNORMALITY- DIFFUSE LEADS BASELINE ARTIFACT- I, II, III, AVR, AVL, AVF BORDERLINE ECG COMPARED TO ECG 04/02/2022 09:17:54 T-WAVE ABNORMALITY NOW PRESENT Electronically Signed On 01-06-2023 20:18:16 [employer] SET UP OPERATOR EXTERNAL by Rober De Guzman D.O.
[2023-01-06] MEDS: MORPHINE SULFATE (*CRX) 4 MG/ML INJ IV PUSH (12:47)
[2023-01-06 13:02] LABS: Influenza A QL RT-PCR Negative (Negative); Influenza B QL RT-PCR Negative (Negative); RSV RNA, RT-PCR Negative (Negative); SARS-CoV-2 RNA PCR Negative (Negative)
== END 2023-01-06 14:12 | disposition home or self-care (01) ==
PROVIDERS: General Practice; Emergency Provider Student in an Organized Health Care Education/Training Program; PCP Family Medicine
DX: R19.7 Diarrhea, unspecified (principal); R10.84 Generalized abdominal pain; R31.21 Asymptomatic microscopic hematuria; Z20.822 Contact with and (suspected) exposure to COVID-19; J45.909 Unspecified asthma, uncomplicated; I10 Essential (primary) hypertension; E55.9 Vitamin D deficiency, unspecified; M10.00 Idiopathic gout, unspecified site; K21.9 Gastro-esophageal reflux disease without esophagitis; Z87.440 Personal history of urinary (tract) infections; Z87.891 Personal history of nicotine dependence; Z90.49 Acquired absence of other specified parts of digestive tract; R94.31 Abnormal electrocardiogram [ECG] [EKG]; K76.0 Fatty (change of) liver, not elsewhere classified
CPT/HCPCS: 36415; 71046; 74177; 80053; 81001; 83605; 83690; 85025; 87637; 93005; 96361; 96374; 96375; 99284; J2270; J2405; J7030; Q9967

== ENCOUNTER 2023-01-07 11:44 | Inpatient (IN) | payer OTHER, SELFPAY ==
--- NOTE | ~2023-01-07 | XR_ITS ---
EXAMINATION: XR abdomen obstructive series DATE: 01/08/2023 07:58 INDICATION: Bowel obstruction TECHNIQUE: Supine and upright views of the abdomen. FINDINGS: No prior studies for comparison. The visualized lung parenchyma is normal.. There is a nonspecific bowel gas pattern. There are mildly dilated small bowel loops left midabdomen which may represent adynamic ileus or partial obstruction. Gas and stool are seen throughout the colon to the level of the rectum. There is no free air. There are cholecystectomy clips. There is residual contrast in the bladder. IMPRESSION: 1. Mildly dilated small bowel left midabdomen, ileus versus partial obstruction.. Reviewed, dictated and finalized at location L. [employer] IMPRESSION: 1. Mildly dilated small bowel left midabdomen, ileus versus partial obstructio n..
--- NOTE | ~2023-01-07 | CT_ITS ---
EXAMINATION: CT abdomen pelvis w con DATE: 01/07/2023 14:44 INDICATION: Abdominal pain TECHNIQUE: Computed tomography (CT) of the head was performed with 100 cc Omnipaque 350 intravenous c ontrast. The dose-length product was 1654.14 mGy-cm. Automated exposure control and iterative reconst ruction technique were employed. COMPARISON: CT dated 01/06/2023 FINDINGS: There is developing right lower lobe airspace disease. There is dependent atelectasis. No s ignificant pleural or pericardial effusion. Heart size normal. No significant vascular abnormality. T here are dilated small bowel loops with air-fluid levels with transition in the right mid abdomen, co nsistent with small bowel obstruction. Normal appendix. Moderate free fluid in the pelvis. There is a fat-containing umbilical hernia. No free air. Fatty infiltration of the liver. Small low-density les ion dome of the liver, most likely benign cyst or hemangioma. Status post cholecystectomy. The spleen, pancreas, adrenal glands and left kidney are unremarkable. Small low-density lesion in th e right kidney, too small to characterize, although most likely benign. No significant vascular abnor mality. No lymphadenopathy. IMPRESSION: 1. Small bowel obstruction. 2: Moderate free fluid in the pelvis. Reviewed, dictated and finalized at location B. [employer]
[2023-01-07 11:49] VITALS: BP 150/97; PULSE 91; RESP 20; TEMP 36.6; O2SAT 98
[2023-01-07 12:09] LABS: Basophils Percent Auto 0.4 % (0.2-1.2); Eosinophils Absolute Auto 0.1 K/mm3 (0-0.3); Eosinophils Percent Auto 1.3 % (0-4.4); Hematocrit 48.9 % (42.0-52.0); Hemoglobin 16.3 g/dL (14.0-18.0); Immature Granulocyte Absolute 0.01 K/mm3 (0.00-0.031); Immature Granulocyte Percent A 0.2 % (0-0.5); Lymphocytes Absolute Auto 1.08 K/mm3 (0.9-3.2); Lymphocytes Percent Auto 23.6 % (18.3-44.2); Mean Corpuscular HGB Conc 33.3 g/dl (32-36); Mean Corpuscular Hemoglobin 29.4 pg (26-34); Mean Corpuscular Volume 88.3 fl (80-100); Mean Platelet Volume 9.8 fl (7.4-10.4); Monocytes Absolute Auto 0.4 K/mm3 (0.1-0.6); Neutrophils Percent Auto 65.5 % (45.5-73.1); Platelet Count Result 184 k/mm3 (150-375); Red Blood Count 5.54 M/mm3 (4.6-6.20); Red Cell Distribution Width 12.7 % (11.5-14.5); White Blood Count 4.6 K/mm3 (4.5-10.0)
[2023-01-07 12:27] LABS: Alanine Aminotransferase 48 U/L (6-50); Albumin Level 4.5 g/dL (3.5-5.1); Alkaline Phosphatase 81 U/L (38-126); Anion Gap 10 mmol/L (8-16); Aspartate Amino Transferase 40 U/L (17-59); Bilirubin,Total 0.5 mg/dL (0.2-1.3); Blood Urea Nitrogen 14 mg/dL (9-20); Calcium 8.8 mg/dL (8.4-10.2); Carbon Dioxide 27 mmol/L (22-30); Chloride 102 mmol/L (98-107); Estimated CRCL calculation 93 ml/min; Estimated Glomerular Filt Rate > 60; Glucose 132 mg/dL (65-110); Lipase 49 U/L (23-300); Potassium 3.8 mmol/L (3.4-5.0); Sodium 139 mmol/L (137-145)
--- NOTE | 2023-01-07 14:03 | ED.ABDPAIN ---
HPI - Abdominal Pain General Chief Complaint: Abdominal Pain Stated Complaint: abd pain Time Seen by Provider: 01/07/23 13:57 History of Present Illness HPI narrative: Patient is a 47-year-old male with history of recurrent diverticulitis, status post sigmoidectomy in April of 2022 here with abdominal pain. Patient was seen by myself yesterday for similar. He has been having abdominal pain for the last 3 days. It was associated with some vomiting and diarrhea. He has not had any more episodes of vomiting and diarrhea since being seen in the emergency department yesterday. He did tolerate a small amount of p.o. intake last night. Around 1:00 a.m. this morning he began having worsening diffuse abdominal pain. He notes that it is cramping in nature and feels as though he has possible gas pains. He denies any fever chills. His last bowel movement was yesterday however he does feel like he could pass flatulence and a bowel movement at this time. He did contact his primary care doctor's office and they referred him into the emergency department given continued pain. Related Data Home Medications Medication Instructions Recorded Confirmed fexofenadine 180 mg tablet 180 mg PO DAILY 01/09/21 05/16/22 ([facility]) fluticasone propionate 50 1 spray intranasal DAILY 01/09/21 05/16/22 mcg/actuation nasal spray,suspension (Flonase Allergy Relief) multivitamin 1 tablet PO DAILY 01/09/21 05/16/22 omeprazole magnesium 20 mg 20 mg PO PRN PRN Heartburn 04/02/22 05/16/22 tablet,delayed release (Prilosec OTC) Allergies Allergy/AdvReac Type Severity Reaction Status Date / Time piperacillin Allergy Unknown Rash Verified 01/07/23 13:50 tazobactam Allergy Unknown Rash Verified 01/07/23 13:50 sulfamethoxazole AdvReac Intermediate Rash Verified 01/07/23 13:50 [From Bactrim] trimethoprim [From Bactrim] AdvReac Intermediate Rash Verified 01/07/23 13:50 Review of Systems Review of Systems: All systems reviewed & are unremarkable except as noted in HPI and below PMFSH Past Medical History Medical History Adult BMI 37.0-37.9 kg/sq m Anxiety Anxiety disorder, unspecified Arm fracture, left Arthralgia of ankle, right Asthma BMI 34.0-34.9,adult BMI 34.0-34.9,adult BMI 36.0-36.9,adult Decreased libido Diverticulitis Foot fracture, right GERD (gastroesophageal reflux disease) Gout Hypertension Idiopathic gout, unspecified site Nasal sinus cyst Screening PSA (prostate specific antigen) Seasonal allergies UTI (urinary tract infection) Vitamin D deficiency Surgical History Surgical History H/O removal of cyst nasal H/O vasectomy H/O wisdom tooth extraction History of colon surgery LUIGI sigmoidectomy on 04/12/22 History of hip surgery bilateral Hx of cholecystectomy Family History Family History Grandparent Family history of malignant neoplasm of brain Father Heart disease Cancer Mother No problems noted. Sibling Diabetes mellitus Thyroid activity decreased Other Cerebrovascular accident Family history of arthritis Family history of cardiovascular disease Family history of gout Family history of malignant neoplasm Hypertension Social History Social History Years smoked: 13 Smoking status: Former smoker Tobacco type: cigarettes Second hand tobacco smoke exposure: Yes Smoking end date: 08/14/22 Alcohol intake: current Drinks per week: 5 Alcohol use details: beer or mixed drinks socially Substance use: never Substance use type: does not use Lack of Transportation: No Lack of Food: Never True Current Housing: I Have Housing Concerned About Future Housing: Decline to Answer Difficulty Paying Gas/Electric Bills: Decline
[2023-01-07] MEDS: ONDANSETRON INJ 4 MG/2 ML VIAL IV PUSH ×2 (14:24→20:39)
[2023-01-07] MEDS: MORPHINE SULFATE (*CRX) 4 MG/ML INJ IV PUSH ×2 (14:25→20:38)
[2023-01-07 15:16] VITALS: BP 123/87; PULSE 79; RESP 16; O2SAT 98
[2023-01-07 15:25] LABS: Lactic Acid Reflex 1.3 mmol/L (0.7-2.0)
[2023-01-07 15:40] LABS: Appearance Urine Clear (Clear); Bacteria Urine None Seen /hpf; Bilirubin Urine Negative (Negative); Blood Urine 2+ (Negative); Color Urine Yellow (Yellow); Glucose Urine UA Negative (Negative); Ketones Urine Negative (Negative); Leukocyte Esterase Ur Negative LEU/UL (Negative); Nitrate Urine Negative (Negative); Non Pathogenic Casts 0-2; Protein Urine Trace mg/dL (Negative); RBC Urine 21-50 /hpf (0-2); Squamous Epithelial Cell Urine None seen /hpf (Few); WBC Urine 0-5 /hpf
[2023-01-07 15:43] LABS: Add Urine Microscopic? YES; Specific Grav Ur 1.082 (1.001-1.035)
[2023-01-07 16:54] VITALS: BP 142/87; PULSE 84; RESP 16; O2SAT 98
[2023-01-07 17:36] VITALS: BMI 34.9
--- NOTE | 2023-01-07 17:37 | PM.IMHP ---
H&P: HPI History of Present Illness Date/Time: 01/07/23 18:30 Chief Complaint: Abdominal pain. Narrative: This is a pleasant 47-year-old male with history of recurrent diverticulitis status post laparoscopic sigmoidectomy in April 2022, hypertension, and asthma who presented to the emergency department via private vehicle from home for evaluation of abdominal pain. He has not felt well since Saturday when he developed nausea, vomiting, diarrhea, and generalized abdominal discomfort. He still felt felt sick when he woke up on Saturday and went to urgent care as he thought perhaps he had the flu though he was instead directed to the emergency department. CT of the abdomen and pelvis at that time showed findings of enterocolitis. He was hydrated and improved with supportive care and was able to be discharged home. Unfortunately he continues to have abdominal pain which is in fact worse than it was yesterday and repeat imaging today showed small-bowel obstruction and moderate free fluid in the pelvis. He is being admitted in this setting for conservative treatment and surgery consultation. Review of Systems Review of Systems: Twelve systems were reviewed. He has not had a documented fever. No hematemesis, melena, or hematochezia. He has no history of bowel obstruction. Except as documented, all other systems were reviewed. [facility] Past Medical History Medical History Anxiety Asthma Diverticulitis Fatty liver Gastroesophageal reflux disease Gout Hypertension Seasonal allergies Vitamin D deficiency Surgical History Surgical History History of hip surgery Bilateral hip surgery as a child. History of removal of cyst Nasal History of vasectomy History of wisdom tooth extraction Status post laparoscopic-assisted sigmoidectomy (04/2022) Family History Family History Grandparent Family history of malignant neoplasm of brain Father Heart disease Cancer Mother No problems noted. Sibling Diabetes mellitus Thyroid activity decreased Other Cerebrovascular accident Family history of arthritis Family history of cardiovascular disease Family history of gout Family history of malignant neoplasm Hypertension Social History Social History (Updated 01/07/23 @ 21:55 by Darcy Webb PA-C) Social History: Surrogate medical decision maker: Noemi Fair, spouse. Code status: Full code. Years smoked: 13 Smoking status: Former smoker Tobacco type: cigarettes Second hand tobacco smoke exposure: Yes Smoking end date: 08/14/22 Alcohol intake: current Drinks per week: 5 Alcohol use details: Social alcohol use in moderation. Substance use: never Substance use type: does not use Lack of Transportation: No Lack of Food: Never True Current Housing: I Have Housing Concerned About Future Housing: Decline to Answer Difficulty Paying Gas/Electric Bills: Decline to Answer Difficulty Paying for Meds: Decline to Answer Currently Unemployed: Decline to Answer Education: Associate Degree Difficulty w/ Childcare or Family Care: Decline to Answer Living arrangements: with family Additional living arrangements comments: Lives with and daughters. 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 Spiritual care concerns: No Agree to blood products: Yes Meds Home Medications and Allergies Home Medications Medication Instructions Recorded Confirmed Type fexofenadine 180 mg tablet 180 mg PO DAILY 01/09/21 01/07/23 History ([facility]) fluticasone propionate 50 1 spray intranasal DAILY 01/09/21 01/07/23 History mcg/actuation nasal spray,suspension (Flonase Allergy Relief) multivitamin 1 tablet PO DAILY 01/09/21
--- NOTE | 2023-01-07 17:42 | PC.NURSE ---
This patient, Vance Fair, was admitted to Medical Room 343-01. Patient/family oriented to hospital policies and general routines including ID bracelet, bed and alarms, visiting hours, pain management, procedures, bathroom and other care routines, personal items, smoking policy, room service/diet, and visiting hours. Information on how to activate the Rapid Response Team has been discussed. Patient/Family are encouraged to report perceived risks to care and to ask questions if they do not understand what they are told or what they should do.
[2023-01-07] MEDS: LACTATED RINGERS 1,000 ML 125 ML IV CONT (17:58)
[2023-01-07 21:40] VITALS: BP 137/85; PULSE 78; RESP 20; TEMP 36.1; O2SAT 99
[2023-01-08] MEDS: LACTATED RINGERS 1,000 ML 125 ML IV CONT ×2 (02:03→10:10)
[2023-01-08] MEDS: MORPHINE SULFATE (*CRX) 4 MG/ML INJ IV PUSH (03:40)
[2023-01-08] MEDS: ONDANSETRON INJ 4 MG/2 ML VIAL IV PUSH ×2 (03:40→09:11)
[2023-01-08 06:00] VITALS: BP 121/77; PULSE 73; RESP 18; TEMP 36.1; O2SAT 95
[2023-01-08 06:05] LABS: Hematocrit 43.6 % (42.0-52.0); Mean Corpuscular HGB Conc 32.1 g/dl (32-36); Mean Corpuscular Volume 90.5 fl (80-100); Mean Platelet Volume 9.9 fl (7.4-10.4); Platelet Count Result 169 k/mm3 (150-375); Red Blood Count 4.82 M/mm3 (4.6-6.20); Red Cell Distribution Width 12.8 % (11.5-14.5); White Blood Count 3.6 K/mm3 (4.5-10.0)
[2023-01-08 06:28] LABS: Anion Gap 7 mmol/L (8-16); Blood Urea Nitrogen 14 mg/dL (9-20); Carbon Dioxide 24 mmol/L (22-30); Chloride 105 mmol/L (98-107); Estimated CRCL calculation 113 ml/min; Estimated Glomerular Filt Rate > 60; Glucose 93 mg/dL (65-110); Magnesium 2.3 mg/dL (1.6-2.3); Potassium 3.6 mmol/L (3.4-5.0); Sodium 136 mmol/L (137-145)
[2023-01-08] MEDS: PANTOPRAZOLE SODIUM IV 40 MG VIAL IV PUSH (09:06)
[2023-01-08] MEDS: ENOXAPARIN 40 MG/0.4 ML SYRINGE SUB-Q (09:06)
[2023-01-08] MEDS: FLUTICASONE PROPIONATE 0.05% NA SPR 16 GM BTL (*BKC) 2 SPRAY NASAL (09:06)
[2023-01-08] MEDS: MORPHINE SULFATE (*CRX) 2 MG/ML INJ IV PUSH (09:11)
--- NOTE | 2023-01-08 09:39 | PM.CNGS ---
Assessment and Plan Assessment and plan (1) Small bowel obstruction: Code(s): K56.609 - Unspecified intestinal obstruction, unspecified as to partial versus complete obstruction Status: Acute Assessment and Plan: CT reviewed and suggests a small bowel obstruction with transition point in the right mid abdomen. Obstructive series this morning shows improvement and suggests more likely an ileus vs partial obstruction. Given his presentation with a diarrheal illness and continued diarrhea last night, this is more likely enteritis and/or an ileus rather than a high-grade small bowel obstruction. No peritoneal signs on exam. Symptoms have improved and he is having bowel function. He has not vomited for 2 days and feels his nausea this morning is related to the morphine. Will start clear liquids now and adjust his pain medication due to the nausea. Discussed with the patient that if he becomes more bloated and starts vomiting, then we may need to consider backing off his diet and placing an NG tube. Will continue to monitor with serial abdominal exams. (2) Enterocolitis: Code(s): K52.9 - Noninfective gastroenteritis and colitis, unspecified Status: Acute Assessment and Plan: Seems to be improving. Continue medical management. (3) Umbilical hernia: Code(s): K42.9 - Umbilical hernia without obstruction or gangrene Status: Acute Assessment and Plan: CT showed fat-containing umbilical hernia. This is asymptomatic and reducible. Not contributing to his acute issues. Discussed with patient. Plan I have discussed the patient's case and plan of care with Dr. Jackson. History of Present Illness Consult details Consult date: 01/08/23 Reason for consult: other (Small bowel obstruction) Requesting physician: Darcy Webb PA-C Narrative: This is a 47-year-old man who we have been asked to see in surgical consultation for a small-bowel obstruction. He developed nausea, vomiting, and diarrhea 3 days ago. He began having some cramping abdominal pain and had vomiting and diarrhea all of Saturday. He presented to urgent care for evaluation, who recommended he go to the ER. In the ER, his labs were unremarkable and CT scan of the abdomen and pelvis suggested enterocolitis. He was given analgesics and antiemetics with improvement of symptoms, and discharged home. He tried eating some chicken noodle soup and macaroni and cheese that night. Into Saturday, his abdominal pain returned and progressively worsened. He reports generalized cramping abdominal pain coming in waves. He had no more vomiting, but continued to have diarrhea. His diarrhea has slowed some. He tried taking hydrocodone yesterday morning for the abdominal pain and decided to return to the ER for evaluation. CT scan of the abdomen and pelvis showed small bowel obstruction with moderate free fluid in the pelvis. There was a transition point in the right mid abdomen. Incidentally noted was a fat containing umbilical hernia. He was admitted to the hospitalist service. He had not had any more vomiting, therefore an NG tube was deferred. He is NPO and now seen on the medical floor. He is still getting zofran, but reports this is due to nausea related to the morphine. Today, he feels less bloated and his abdominal pain has improved some. He reports lots of flatus yesterday in the ER and 2 liquid bowel movements last night. Previous abdominal surgeries include a laparoscopic cholecystectomy and a hand assisted laparoscopic sigmoidectomy for diverticulitis in April of 2022. No previous small-bowel obstructions. Review of Systems Review of Systems: All systems reviewed & are unremarkable except as noted in HPI and below PMFSH Past Medical History Medical History Anxiety Asthma Diverticulitis Fatty liver Gastroesophageal reflux disease Gout Hypertension Seasonal allergies Vitamin D deficien
--- NOTE | 2023-01-08 12:36 | PM.IMPN ---
Progress Note: A&P Assessment and Plan (1) Small bowel obstruction: Code(s): K56.609 - Unspecified intestinal obstruction, unspecified as to partial versus complete obstruction Status: Acute Assessment and Plan: Improved with bowel rest, x-ray appears to be ileus? Surgery has seen patient and orders clear liquid advanced as tolerated. (2) Hypertension: Qualifiers: Hypertension type: primary hypertension Qualified Code(s): I10 - Essential (primary) hypertension Code(s): I10 - Essential (primary) hypertension Status: Acute Assessment and Plan: Blood pressure reviewed on 01/08, stable without need for acute intervention. (3) Uvular edema: Code(s): K13.79 - Other lesions of oral mucosa Status: Acute Assessment and Plan: Likely viral uvula edema. Ordered dexamethasone and COVID flu RSV swab. Plan Advanced diet as tolerated Time Spent With Patient Time with patient: 25 - 35 minutes Subjective Date/time seen: 01/08/23 12:36 Interval history: Patient seen today in feeling better. He has passed a lot of gas throughout the night. He has had to brown liquid stool stools overnight. Patient's only new complaint is sore throat and waking up snoring/difficulty breathing throughout the night. Patient has no history of JUAN and states he does not usually snore. No fever chills. Nausea is under control. He has had no further vomiting since arriving at the hospital. Surgery has seen the patient and is recommending clear liquid diet with plans to advance if tolerating. If patient does develop worsening nausea and vomiting we will have to insert NG tube. Review of Systems Review of Systems: All systems reviewed & are unremarkable except as noted in HPI and below Exam Narrative: General: Well-developed, nontoxic-appearing male in mild discomfort. Weight: 113.6 kg. BMI: 34.9. HEENT: Wearing glasses. PERRL, EOMI. Sclera anicteric. Tacky mucous membranes. Uvular swelling without vocal changes, no oral cellulitis appearance or tonsillitis. Neck: Supple. No JVD. Respiratory: Lungs are clear to auscultation bilaterally. Cardiovascular: Regular rate and rhythm with S1-S2. Gastrointestinal: Abdomen is rounded, general tenderness to palpation with pain only on right lower quadrant despite where palpated, no rebound. Skin: Warm and dry. Extremities: No cyanosis, clubbing, or edema. Radial and pedal pulses intact. Neurological: Alert. Cranial nerves 2-12 are grossly intact. No gross focal deficits to casual conversation. Psychiatric: Pleasant and cooperative with normal mood and affect. Judgment and insight intact. Objective Data Vital Signs Vital Signs: Vital Signs - 24 hr 01/07/23 15:16 01/07/23 16:54 01/07/23 20:00 Temperature Pulse Rate 79 84 Respiratory Rate 16 16 Blood Pressure 123/87 142/87 H Pulse Oximetry 98 98 Oxygen Delivery Room Air 01/07/23 21:40 01/08/23 06:00 01/08/23 08:37 Temperature 36.1 C L 36.1 C L Pulse Rate 78 73 Respiratory Rate 20 18 Blood Pressure 137/85 121/77 Pulse Oximetry 99 95 Oxygen Delivery Room Air Intake/Output Intake/Output: Intake & Output 01/05/23 01/06/23 01/07/23 01/08/23 23:59 23:59 23:59 23:59 Intake Total 1999 Balance 1999 Meds/Results Medications: Active Medications Generic Name Dose Route Start Last Admin Trade Name Freq PRN Reason Stop Dose Admin Enoxaparin Sodium 40 mg 01/08/23 09:00 01/08/23 09:06 Enoxaparin 40 Mg/0.4 Ml Syringe SUB-Q 40 mg DAILY GILBERT Administration Fluticasone Propionate 2 spray 01/08/23 09:00 01/08/23 09:06 Fluticasone Propionate 0.05% Na Spr 16 Gm Btl (*Bkc) NASAL 2 spray DAILY GILBERT Administration Hydromorphone HCl 0.5 mg 01/08/23 09:39 Hydromorphone Hcl Inj (*Crx) 1 Mg/Ml Syr IV PUSH Q3H PRN Pain Rated 7-10 Lactated Ringer's 1,000 mls @ 125 mls/hr 01/07/23 17:45 01/08/23 10:10 David - La
[2023-01-08 14:00] VITALS: BP 121/82; PULSE 69; RESP 18; TEMP 36.9; O2SAT 96
[2023-01-08] MEDS: DEXAMETHASONE 4 MG TABLET 12 MG PO (16:08)
[2023-01-08 17:01] LABS: Influenza A QL RT-PCR Negative (Negative); Influenza B QL RT-PCR Negative (Negative); RSV RNA, RT-PCR Negative (Negative); SARS-CoV-2 RNA PCR Negative (Negative)
[2023-01-08] MEDS: IBUPROFEN IV 800 MG/200 ML 800 MG/200 ML BAG 400 MG IVPB (19:39)
[2023-01-08 20:00] VITALS: PULSE 80; RESP 18; O2SAT 97
[2023-01-08 20:51] VITALS: BP 140/99; PULSE 80; RESP 18; TEMP 36.2; O2SAT 97
[2023-01-09] MEDS: HYDROmorphone HCL INJ (*CRX) 1 MG/ML SYR 0.5 MG IV PUSH ×3 (01:19→21:04)
[2023-01-09 05:48] LABS: Hematocrit 42.1 % (42.0-52.0); Hemoglobin 14.2 g/dL (14.0-18.0); Immature Granulocyte Absolute 0.02 K/mm3 (0.00-0.031); Immature Granulocyte Percent A 0.4 % (0-0.5); Lymphocytes Absolute Auto 0.78 K/mm3 (0.9-3.2); Lymphocytes Percent Auto 16.7 % (18.3-44.2); Mean Corpuscular HGB Conc 33.7 g/dl (32-36); Mean Corpuscular Hemoglobin 28.9 pg (26-34); Mean Corpuscular Volume 85.6 fl (80-100); Mean Platelet Volume 9.6 fl (7.4-10.4); Monocytes Absolute Auto 0.2 K/mm3 (0.1-0.6); Monocytes Percent Auto 3.2 % (2.6-8.5); Neutrophils Absolute Auto 3.7 K/mm3 (1.3-6.7); Neutrophils Percent Auto 79.7 % (45.5-73.1); Platelet Count Result 213 k/mm3 (150-375); Red Blood Count 4.92 M/mm3 (4.6-6.20); Red Cell Distribution Width 12.2 % (11.5-14.5); White Blood Count 4.7 K/mm3 (4.5-10.0)
[2023-01-09 06:00] VITALS: BP 145/83; PULSE 73; RESP 18; TEMP 36.6; O2SAT 96
[2023-01-09 06:05] LABS: Alanine Aminotransferase 124 U/L (6-50); Alkaline Phosphatase 115 U/L (38-126); Anion Gap 8 mmol/L (8-16); Aspartate Amino Transferase 101 U/L (17-59); Bilirubin,Total 0.4 mg/dL (0.2-1.3); Blood Urea Nitrogen 12 mg/dL (9-20); Calcium 8.8 mg/dL (8.4-10.2); Carbon Dioxide 27 mmol/L (22-30); Chloride 103 mmol/L (98-107); Estimated CRCL calculation 113 ml/min; Estimated Glomerular Filt Rate > 60; Glucose 144 mg/dL (65-110); Potassium 3.9 mmol/L (3.4-5.0); Sodium 138 mmol/L (137-145)
--- NOTE | 2023-01-09 09:25 | PM.IMPN ---
Progress Note: A&P Assessment and Plan (1) Small bowel obstruction: Code(s): K56.609 - Unspecified intestinal obstruction, unspecified as to partial versus complete obstruction Status: Acute Assessment and Plan: Improved with bowel rest, x-ray appears to be ileus? Surgery has seen patient and orders clear liquid advanced as tolerated. 01/09: Surgery advance his diet last night to general. This morning he is having increased abdominal pain and cramping. Will back off to clear liquids today and retry of advancement of diet tomorrow. Bentyl was added for abdominal cramping. (2) Hypertension: Qualifiers: Hypertension type: primary hypertension Qualified Code(s): I10 - Essential (primary) hypertension Code(s): I10 - Essential (primary) hypertension Status: Acute Assessment and Plan: Blood pressure reviewed on 01/08, stable without need for acute intervention. 01/09: Restarting home lisinopril. SBP 140's (3) Uvular edema: Code(s): K13.79 - Other lesions of oral mucosa Status: Acute Assessment and Plan: Likely viral uvula edema. Ordered dexamethasone and COVID flu RSV swab. 01/09: Resolved. Plan Feeding: Clears Analgesia:IV ibuprofen, Bentyl, p.r.n. hydromorphone Thromboembolic prophylaxis: lovenox Ulcer prophylaxis: PPI Glycemic control: NA Bowel regimen: NA Lines: PIV Antibiotics: na Disposition: home Subjective Date/time seen: 01/09/23 09:25 Interval history: HPI obtained from the chart, This is a pleasant 47-year-old male with history of recurrent diverticulitis status post laparoscopic sigmoidectomy in April 2022, hypertension, and asthma who presented to the emergency department via private vehicle from home for evaluation of abdominal pain. He has not felt well since Saturday when he developed nausea, vomiting, diarrhea, and generalized abdominal discomfort. He still felt felt sick when he woke up on Saturday and went to urgent care as he thought perhaps he had the flu though he was instead directed to the emergency department. CT of the abdomen and pelvis at that time showed findings of enterocolitis. He was hydrated and improved with supportive care and was able to be discharged home. Unfortunately he continues to have abdominal pain which is in fact worse than it was yesterday and repeat imaging today showed small-bowel obstruction and moderate free fluid in the pelvis. He is being admitted in this setting for conservative treatment and surgery consultation. 01/08: Patient seen today in feeling better.? He has passed a lot of gas throughout the night.? He has had to brown liquid stool stools overnight.? Patient's only new complaint is sore throat and waking up snoring/difficulty breathing throughout the night.? Patient has no history of JUAN and states he does not usually snore.? No fever chills.? Nausea is under control.? He has had no further vomiting since arriving at the hospital.? Surgery has seen the patient and is recommending clear liquid diet with plans to advance if tolerating.? If patient does develop worsening nausea and vomiting we will have to insert NG tube. 01/09: Patient is seen today is having increased abdominal cramping pain. He tried a general diet for breakfast which caused increased pain. Will take his diet back to clear liquids. Surgery added on Bentyl for cramping. Will re-evaluate in the morning advancing his diet. Review of Systems Review of Systems: All systems reviewed & are unremarkable except as noted in HPI and below Exam Narrative: General: appears uncomfortable, well developed, well nourished, appears stated age. HEENT: normocephalic, atraumatic. Mucous membranes moist. EOMI, PERRLA, bilateral sclera anicteric, no conjunctival injection. Neck supple without JVD, lymphadenopathy, or bruit. Respiratory: clear to auscultation bilaterally. No rales/rhonic/wheezes. Cardiovascular: Regular rate and rhythm, nor
[2023-01-09] MEDS: ENOXAPARIN 40 MG/0.4 ML SYRINGE SUB-Q (09:58)
[2023-01-09] MEDS: lisinopriL 10 MG TABLET 20 MG BY MOUTH (09:59)
[2023-01-09] MEDS: PANTOPRAZOLE SODIUM IV 40 MG VIAL IV PUSH (09:59)
[2023-01-09] MEDS: MULTIVITAMINS THERAPEUTIC TAB (*BKC) 1 TABLET PO (09:59)
[2023-01-09] MEDS: FLUTICASONE PROPIONATE 0.05% NA SPR 16 GM BTL (*BKC) 2 SPRAY NASAL (09:59)
[2023-01-09] MEDS: allopurinoL 300 MG TABLET PO (09:59)
--- NOTE | 2023-01-09 11:08 | PM.PNGS ---
Progress Note: A&P Assessment and Plan (1) Enterocolitis: Code(s): K52.9 - Noninfective gastroenteritis and colitis, unspecified Status: Acute Assessment and Plan: No evidence of a high-grade SBO, and more likely enteritis. He is still having bowel function, but continues to have bloating and abdominal cramping. Will add Bentyl to see if this helps with his cramping rather than taking the Dilaudid. Advanced to a regular diet. No indication for any surgical intervention. If his symptoms improve and he is tolerating a regular diet, then he could be discharged from a surgical standpoint. (2) Small bowel obstruction: Code(s): K56.609 - Unspecified intestinal obstruction, unspecified as to partial versus complete obstruction Status: Acute Assessment and Plan: CT suggested SBO. He continues to have bowel function, more likely enteritis. See plan above. Plan I have discussed the patient's case and plan of care with Dr. Jackson. Subjective Subjective Date/Time Seen: 01/09/23 11:08 Patient reports: still having pain, flatus, bowel movement and afebrile Interval history: Patient was feeling better yesterday and ate a regular diet for dinner. He had one small loose BM and felt like his pain got worse again overnight. He has been taking the IV Ibuprofen and had a dose of IV Dilaudid around 1 am. He feels his abdominal pain is better this morning, but he still has a lot of bloating and cramping. He denies any nausea or vomiting. He did eat a regular diet for breakfast. No other complaints at this time. Review of Systems Review of Systems: All systems reviewed & are unremarkable except as noted in HPI and below Exam Const: General: no acute distress Orientation/consciousness: patient oriented x3 GI: Inspection: other (mildly distended) GI Palp: Yes Soft to palpation, Yes Tenderness to palpation present (GI) (LUQ), No Guarding due to palpation present (GI), Yes Hernia present (soft reducible umbilical hernia) and No Rebound tenderness present Auscultation: normal bowel sounds Objective Data Vital Signs Vital Signs: Vital Signs - 24 hr 01/08/23 14:00 01/08/23 20:51 01/08/23 20:00 Temperature 98.4 F 97.2 F L Pulse Rate 69 80 80 Respiratory Rate 18 18 18 Blood Pressure 121/82 140/99 H Pulse Oximetry 96 97 97 Oxygen Delivery Room Air 01/09/23 06:00 01/09/23 10:10 Temperature 97.9 F Pulse Rate 73 Respiratory Rate 18 Blood Pressure 145/83 H Pulse Oximetry 96 Oxygen Delivery Room Air Intake/Output Intake/Output: Intake & Output 01/06/23 01/07/23 01/08/23 01/09/23 23:59 23:59 23:59 23:59 Intake Total 4040 910 Balance 4040 910 Meds/Results Medications: Active Medications Generic Name Dose Route Start Last Admin Trade Name Freq PRN Reason Stop Dose Admin Allopurinol 300 mg 01/09/23 09:40 01/09/23 09:59 Allopurinol 300 Mg Tablet PO 300 mg DAILY GILBERT Administration Dicyclomine HCl 20 mg 01/09/23 11:08 Dicyclomine Hcl 10 Mg Capsule PO QID PRN Cramping Enoxaparin Sodium 40 mg 01/08/23 09:00 01/09/23 09:58 Enoxaparin 40 Mg/0.4 Ml Syringe SUB-Q 40 mg DAILY GILBERT Administration Fluticasone Propionate 2 spray 01/08/23 09:00 01/09/23 09:59 Fluticasone Propionate 0.05% Na Spr 16 Gm Btl (*Bkc) NASAL 2 spray DAILY GILBERT Administration Hydromorphone HCl 0.5 mg 01/08/23 09:39 01/09/23 01:19 Hydromorphone Hcl Inj (*Crx) 1 Mg/Ml Syr IV PUSH 0.5 mg Q3H PRN Administration Pain Rated 7-10 Ibuprofen 800 mg in 200 mls @ 400 mls/hr 01/08/23 09:39 01/08/23 20:09 Caldolor 800 Mg/200 Ml IVPB Infused Q6H PRN Infusion Pain Rated 4-6 Lisinopril 20 mg 01/09/23 09:30 01/09/23 09:59 Lisinopril 10 Mg Tablet BY MOUTH 20 mg QAM GILBERT Administration Multivitamins Therapeutic 1 tablet 01/09/23 09:40 01/09/23 09:59 Multivitamins Therapeutic Tab (*Bkc) PO 1 tablet DAILY GILBERT Administration O
[2023-01-09] MEDS: DICYCLOMINE HCL 10 MG CAPSULE 20 MG PO (12:16)
[2023-01-09 13:28] VITALS: O2SAT 96
[2023-01-09 14:00] VITALS: BP 147/82; PULSE 69; RESP 20; TEMP 36.6; O2SAT 99
[2023-01-09 20:00] VITALS: PULSE 69; RESP 20; O2SAT 99
[2023-01-09 22:00] VITALS: BP 136/89; PULSE 68; RESP 16; TEMP 36.3; O2SAT 99
[2023-01-10 05:47] LABS: Basophils Percent Auto 0.3 % (0.2-1.2); Eosinophils Percent Auto 0.5 % (0-4.4); Hematocrit 40.3 % (42.0-52.0); Hemoglobin 13.3 g/dL (14.0-18.0); Immature Granulocyte Absolute 0.02 K/mm3 (0.00-0.031); Immature Granulocyte Percent A 0.3 % (0-0.5); Lymphocytes Percent Auto 37.9 % (18.3-44.2); Mean Corpuscular Hemoglobin 28.9 pg (26-34); Mean Corpuscular Volume 87.4 fl (80-100); Mean Platelet Volume 9.5 fl (7.4-10.4); Monocytes Absolute Auto 0.4 K/mm3 (0.1-0.6); Neutrophils Absolute Auto 3.4 K/mm3 (1.3-6.7); Platelet Count Result 194 k/mm3 (150-375); Red Blood Count 4.61 M/mm3 (4.6-6.20); Red Cell Distribution Width 12.7 % (11.5-14.5); White Blood Count 6.3 K/mm3 (4.5-10.0)
[2023-01-10 05:59] LABS: Alanine Aminotransferase 130 U/L (6-50); Albumin Level 3.6 g/dL (3.5-5.1); Alkaline Phosphatase 102 U/L (38-126); Anion Gap 4 mmol/L (8-16); Aspartate Amino Transferase 81 U/L (17-59); Bilirubin,Total 0.5 mg/dL (0.2-1.3); Blood Urea Nitrogen 12 mg/dL (9-20); Calcium 8.1 mg/dL (8.4-10.2); Carbon Dioxide 27 mmol/L (22-30); Chloride 105 mmol/L (98-107); Estimated CRCL calculation 104 ml/min; Estimated Glomerular Filt Rate > 60; Glucose 103 mg/dL (65-110); Potassium 3.5 mmol/L (3.4-5.0); Sodium 136 mmol/L (137-145)
[2023-01-10 06:00] VITALS: BP 136/91; PULSE 56; RESP 19; TEMP 36.5; O2SAT 98
--- NOTE | 2023-01-10 09:14 | PM.IMPN ---
Progress Note: A&P Assessment and Plan (1) Small bowel obstruction: Code(s): K56.609 - Unspecified intestinal obstruction, unspecified as to partial versus complete obstruction Status: Acute Assessment and Plan: Improved with bowel rest, x-ray appears to be ileus? Surgery has seen patient and orders clear liquid advanced as tolerated. 01/09: Surgery advance his diet last night to general. This morning he is having increased abdominal pain and cramping. Will back off to clear liquids today and retry of advancement of diet tomorrow. Bentyl was added for abdominal cramping. 01/10: Tolerated clears. Will trial low fiber, low residue at lunch. Scheduled bentyl. (2) Hypertension: Qualifiers: Hypertension type: primary hypertension Qualified Code(s): I10 - Essential (primary) hypertension Code(s): I10 - Essential (primary) hypertension Status: Acute Assessment and Plan: Blood pressure reviewed on 01/08, stable without need for acute intervention. 01/09: Restarting home lisinopril. SBP 140's (3) Uvular edema: Code(s): K13.79 - Other lesions of oral mucosa Status: Acute Assessment and Plan: Likely viral uvula edema. Ordered dexamethasone and COVID flu RSV swab. 01/09: Resolved. Plan Feeding: Clears Analgesia:IV ibuprofen, Bentyl, p.r.n. hydromorphone Thromboembolic prophylaxis: lovenox Ulcer prophylaxis: PPI Glycemic control: NA Bowel regimen: NA Lines: PIV Antibiotics: na Disposition: home Subjective Date/time seen: 01/10/23 09:14 Interval history: HPI obtained from the chart, This is a pleasant 47-year-old male with history of recurrent diverticulitis status post laparoscopic sigmoidectomy in April 2022, hypertension, and asthma who presented to the emergency department via private vehicle from home for evaluation of abdominal pain. He has not felt well since Saturday when he developed nausea, vomiting, diarrhea, and generalized abdominal discomfort. He still felt felt sick when he woke up on Saturday and went to urgent care as he thought perhaps he had the flu though he was instead directed to the emergency department. CT of the abdomen and pelvis at that time showed findings of enterocolitis. He was hydrated and improved with supportive care and was able to be discharged home. Unfortunately he continues to have abdominal pain which is in fact worse than it was yesterday and repeat imaging today showed small-bowel obstruction and moderate free fluid in the pelvis. He is being admitted in this setting for conservative treatment and surgery consultation. 01/08: Patient seen today in feeling better.? He has passed a lot of gas throughout the night.? He has had to brown liquid stool stools overnight.? Patient's only new complaint is sore throat and waking up snoring/difficulty breathing throughout the night.? Patient has no history of JUAN and states he does not usually snore.? No fever chills.? Nausea is under control.? He has had no further vomiting since arriving at the hospital.? Surgery has seen the patient and is recommending clear liquid diet with plans to advance if tolerating.? If patient does develop worsening nausea and vomiting we will have to insert NG tube. 01/09: Patient is seen today is having increased abdominal cramping pain. He tried a general diet for breakfast which caused increased pain. Will take his diet back to clear liquids. Surgery added on Bentyl for cramping. Will re-evaluate in the morning advancing his diet. 01/10: Doing well this morning. Minimal discomfort to LUQ with palpation. Has not had any cramping. Will trial a low fiber, low residue diet at lunch and if he does not have any pain or cramping then he can d/c home this afternoon. Patient is agreeable to plan. Review of Systems Review of Systems: All systems reviewed & are unremarkable except as noted in HPI and below Exam Narrative: General: appears comfortable,
[2023-01-10] MEDS: lisinopriL 10 MG TABLET 20 MG BY MOUTH (09:31)
[2023-01-10] MEDS: PANTOPRAZOLE SODIUM IV 40 MG VIAL IV PUSH (09:32)
[2023-01-10] MEDS: MULTIVITAMINS THERAPEUTIC TAB (*BKC) 1 TABLET PO (09:32)
[2023-01-10] MEDS: ENOXAPARIN 40 MG/0.4 ML SYRINGE SUB-Q (09:32)
[2023-01-10] MEDS: FLUTICASONE PROPIONATE 0.05% NA SPR 16 GM BTL (*BKC) 2 SPRAY NASAL (09:32)
[2023-01-10] MEDS: allopurinoL 300 MG TABLET PO (09:32)
[2023-01-10] MEDS: DICYCLOMINE HCL 10 MG CAPSULE 20 MG PO ×2 (09:35→12:49)
[2023-01-10 12:23] LABS: Hemoglobin A1C 5.6 % (<5.7)
--- NOTE | 2023-01-10 13:03 | PM.PNGS ---
Progress Note: A&P Assessment and Plan (1) Enterocolitis: Code(s): K52.9 - Noninfective gastroenteritis and colitis, unspecified Status: Acute Assessment and Plan: Appears to be gastroenteritis, no evidence of a small bowel obstruction. Continues to have diarrhea, but clinically improving. Advance diet as tolerated to a solid diet. No indication for any surgical intervention. Will sign off at this time. No follow up needed. Call with any surgical questions or concerns. Plan I have discussed the patient's case and plan of care with Dr. Jackson. Subjective Subjective Date/Time Seen: 01/10/23 10:03 Patient reports: no new complaints, feels better, pain is less, tolerating liquids well, flatus, diarrhea and afebrile Interval history: Patient feeling better today. Less bloating and less cramping. No abdominal pain at this time. He was backed down to clear liquids by the Hospitalist yesterday and is tolerating clear liquids well. Still having diarrhea. No nausea or vomiting. Exam Const: General: comfortable and no acute distress Orientation/consciousness: patient oriented x3 GI: Inspection: non-distended GI Palp: Yes Soft to palpation, Yes Tenderness to palpation present (GI) (mild LUQ tenderness), No Guarding due to palpation present (GI) and No Rebound tenderness present Auscultation: normal bowel sounds Objective Data Vital Signs Vital Signs: Vital Signs - 24 hr 01/09/23 13:28 01/09/23 14:00 01/09/23 20:00 Temperature 97.9 F Pulse Rate 69 69 Respiratory Rate 20 20 Blood Pressure 147/82 H Pulse Oximetry 96 99 99 Oxygen Delivery Room Air Room Air 01/09/23 22:00 01/10/23 06:00 01/10/23 08:00 Temperature 97.4 F L 97.7 F Pulse Rate 68 56 L Respiratory Rate 16 19 Blood Pressure 136/89 136/91 H Pulse Oximetry 99 98 Oxygen Delivery Room Air Intake/Output Intake/Output: Intake & Output 01/07/23 01/08/23 01/09/23 01/10/23 23:59 23:59 23:59 23:59 Intake Total 4040 1650 240 Balance 4040 1650 240 Meds/Results Medications: Active Medications Generic Name Dose Route Start Last Admin Trade Name Freq PRN Reason Stop Dose Admin Allopurinol 300 mg 01/09/23 09:40 01/10/23 09:32 Allopurinol 300 Mg Tablet PO 300 mg DAILY GILBERT Administration Dicyclomine HCl 20 mg 01/10/23 09:20 01/10/23 12:49 Dicyclomine Hcl 10 Mg Capsule PO 20 mg QID GILBERT Administration Enoxaparin Sodium 40 mg 01/08/23 09:00 01/10/23 09:32 Enoxaparin 40 Mg/0.4 Ml Syringe SUB-Q 40 mg DAILY GILBERT Administration Fluticasone Propionate 2 spray 01/08/23 09:00 01/10/23 09:32 Fluticasone Propionate 0.05% Na Spr 16 Gm Btl (*Bkc) NASAL 2 spray DAILY GILBERT Administration Hydromorphone HCl 0.5 mg 01/08/23 09:39 01/09/23 21:04 Hydromorphone Hcl Inj (*Crx) 1 Mg/Ml Syr IV PUSH 0.5 mg Q3H PRN Administration Pain Rated 7-10 Ibuprofen 800 mg in 200 mls @ 400 mls/hr 01/08/23 09:39 01/08/23 20:09 Caldolor 800 Mg/200 Ml IVPB Infused Q6H PRN Infusion Pain Rated 4-6 Lisinopril 20 mg 01/09/23 09:30 01/10/23 09:31 Lisinopril 10 Mg Tablet BY MOUTH 20 mg QAM GILBERT Administration Multivitamins Therapeutic 1 tablet 01/09/23 09:40 01/10/23 09:32 Multivitamins Therapeutic Tab (*Bkc) PO 1 tablet DAILY GILBERT Administration Ondansetron HCl 4 mg 01/07/23 17:44 01/08/23 09:11 Ondansetron Inj 4 Mg/2 Ml Vial IV PUSH 4 mg Q6H PRN Administration Nausea And Vomiting Pantoprazole Sodium 40 mg 01/08/23 09:00 01/10/23 09:32 Pantoprazole Sodium Iv 40 Mg Vial IV PUSH 40 mg QAM GILBERT Administration Radiology Results: ITS Impressions Abdomen/Pelvis CT 01/07/23 14:50 IMPRESSION: 1. Small bowel obstruction. 2: Moderate free fluid in the pelvis. Abdomen X-Ray 01/08/23 08:24 IMPRESSION: 1. Mildly dilated small bowel left midabdomen, ileus versus partial obstruction.. Labs Labs: Laboratory Results - last
[2023-01-10 14:00] VITALS: BP 143/79; PULSE 62; RESP 16; TEMP 36.4; O2SAT 96
--- NOTE | 2023-01-12 06:10 | PM.DS ---
DS: Admitting Diagnosis Discharge Date 01/10/23 Admitting Diagnosis abdominal pain DS: Discharge Diagnosis Discharge Diagnosis (1) Small bowel obstruction: Code(s): K56.609 - Unspecified intestinal obstruction, unspecified as to partial versus complete obstruction Status: Acute Assessment and Plan: Improved with bowel rest, x-ray appears to be ileus? Surgery has seen patient and orders clear liquid advanced as tolerated. 01/09: Surgery advance his diet last night to general. This morning he is having increased abdominal pain and cramping. Will back off to clear liquids today and retry of advancement of diet tomorrow. Bentyl was added for abdominal cramping. 01/10: Tolerated clears. Will trial low fiber, low residue at lunch. Scheduled bentyl. (2) Hypertension: Qualifiers: Hypertension type: primary hypertension Qualified Code(s): I10 - Essential (primary) hypertension Code(s): I10 - Essential (primary) hypertension Status: Acute Assessment and Plan: Blood pressure reviewed on 01/08, stable without need for acute intervention. 01/09: Restarting home lisinopril. SBP 140's (3) Uvular edema: Code(s): K13.79 - Other lesions of oral mucosa Status: Acute Assessment and Plan: Likely viral uvula edema. Ordered dexamethasone and COVID flu RSV swab. 01/09: Resolved. Plan Feeding: Clears Analgesia:IV ibuprofen, Bentyl, p.r.n. hydromorphone Thromboembolic prophylaxis: lovenox Ulcer prophylaxis: PPI Glycemic control: NA Bowel regimen: NA Lines: PIV Antibiotics: na Disposition: home DS: Summary Hospital Course Hospital Course: This is a pleasant 47-year-old male with history of recurrent diverticulitis status post laparoscopic sigmoidectomy in April 2022, hypertension, and asthma who presented to the emergency department via private vehicle from home for evaluation of abdominal pain. He has not felt well since Saturday when he developed nausea, vomiting, diarrhea, and generalized abdominal discomfort. He still felt felt sick when he woke up on Saturday and went to urgent care as he thought perhaps he had the flu though he was instead directed to the emergency department. CT of the abdomen and pelvis at that time showed findings of enterocolitis. He was hydrated and improved with supportive care and was able to be discharged home. Unfortunately he continues to have abdominal pain which is in fact worse than it was yesterday and repeat imaging today showed small-bowel obstruction and moderate free fluid in the pelvis. He is being admitted in this setting for conservative treatment and surgery consultation. 01/08: Patient seen today in feeling better.? He has passed a lot of gas throughout the night.? He has had to brown liquid stool stools overnight.? Patient's only new complaint is sore throat and waking up snoring/difficulty breathing throughout the night.? Patient has no history of JUAN and states he does not usually snore.? No fever chills.? Nausea is under control.? He has had no further vomiting since arriving at the hospital.? Surgery has seen the patient and is recommending clear liquid diet with plans to advance if tolerating.? If patient does develop worsening nausea and vomiting we will have to insert NG tube. 01/09:? Patient is seen today is having increased abdominal cramping pain.? He tried a general diet for breakfast which caused increased pain.? Will take his diet back to clear liquids.? Surgery added on Bentyl for cramping.? Will re-evaluate in the morning advancing his diet. 01/10: Doing well this morning. Minimal discomfort to LUQ with palpation. Has not had any cramping. Will trial a low fiber, low residue diet at lunch and if he does not have any pain or cramping then he can d/c home this afternoon. Patient is agreeable to plan. Status at Discharge Cognitive/behavioral status at discharge: A&Ox4 Time Spent with Patient Time attestation: Total t
== END 2023-01-10 16:55 | disposition home or self-care (01) | DRG 390 ==
LOC: ANHED 15:40 → ANH3MED 16:50
PROVIDERS: Emergency Medicine; Nurse Practitioner; Nurse Practitioner Acute Care; Physician Assistant; Admitting Provider Hospitalist; Emergency Provider Student in an Organized Health Care Education/Training Program; PCP Family Medicine; Visit Provider Hospitalist
DX: K56.7 Ileus, unspecified (principal); K52.9 Noninfective gastroenteritis and colitis, unspecified; K56.609 Unspecified intestinal obstruction, unspecified as to partial versus complete obstruction; K42.9 Umbilical hernia without obstruction or gangrene; K13.79 Other lesions of oral mucosa; E55.9 Vitamin D deficiency, unspecified; F41.9 Anxiety disorder, unspecified; I10 Essential (primary) hypertension; J45.909 Unspecified asthma, uncomplicated; K21.9 Gastro-esophageal reflux disease without esophagitis; M10.9 Gout, unspecified; Z28.21 Immunization not carried out because of patient refusal; Z20.822 Contact with and (suspected) exposure to COVID-19; Z90.49 Acquired absence of other specified parts of digestive tract; Z87.891 Personal history of nicotine dependence
CPT/HCPCS: 36415; 71046; 74019; 74177; 80048; 80053; 81001; 83036; 83605; 83690; 83735; 85025; 85027; 87637; 87804; 93005; 96361; 96374; 96375; 99213; 99284; 99285; A9270; C9113; G0463; J1170; J1650; J1741; J2270; J2405; J7030; J7120; J8540; Q9967

== ENCOUNTER 2023-04-24 15:25 | Outpatient (CLI) | payer OTHER, SELFPAY ==
--- NOTE | ~2023-04-24 | XR_ITS ---
XR chest 2V 04/24/2023 15:54 Indication: Wheezing and cough Procedure: 2 view chest Comparison: 01/06/2023 Findings: Heart size normal. Calcified left hilar lymph node, most likely secondary to chronic granul omatous disease. No focal air space disease, pulmonary edema, pleural effusion or suspected pneumotho rax. Impression: 1: No acute cardiopulmonary disease. Reviewed, dictated and finalized at location A. Impression: 1: No acute cardiopulmonary disease.
== END 2023-04-24 15:26 ==
PROVIDERS: PCP Family Medicine; Visit Provider Nurse Practitioner Adult Health
DX: R06.2 Wheezing (principal)
CPT/HCPCS: 71046

== ENCOUNTER 2024-03-09 15:01 | Observation (INO) | payer OTHER, SELFPAY ==
[2024-03-09] VITALS (22 sets, daily range): BP systolic 140–184; BP diastolic 92–108; PULSE 86–102; RESP 16–27; TEMP 36.7; O2SAT 96–99; BMI 36.8
--- NOTE | ~2024-03-09 | CT_ITS ---
EXAMINATION: CT abdomen pelvis w con DATE: 03/09/2024 20:24 INDICATION: Abdominal pain. TECHNIQUE: Computed tomography (CT) of the abdomen and pelvis was performed with 100 mL Omnipaque 350 intravenous contrast. Automated exposure control and iterative reconstruction technique were employe d. The dose-length product was 1553.54 mGy-cm. COMPARISON: CT abdomen and pelvis 01/07/2023 FINDINGS: The visualized portions of lung bases demonstrate mild atelectasis. No pleural effusion. Th e heart size is normal. No pericardial effusion. There is diffuse hepatic steatosis. There is thrombo sis of right portal vein. There is a 7 mm cyst in the liver. There are changes of cholecystectomy. Th e spleen, pancreas, adrenal glands, and kidneys are normal. The prostate is mildly enlarged. There is diverticulosis of the colon without evidence of diverticulitis. The appendix is normal. There are no pathologically enlarged lymph nodes. There is no free intraperitoneal fluid. There is a left inguina l hernia containing fat. There is an umbilical hernia containing fat. There is moderate lower lumbar spondylosis. IMPRESSION: 1. Thrombosis of right portal vein. 2. Diffuse hepatic steatosis. 3. Umbilical hernia containing fat. 4. Left inguinal hernia containing fat. Reviewed, dictated and finalized at location A. MAKER BENCH
--- NOTE | ~2024-03-09 | XR_ITS ---
Exam: Abdomen 1V HISTORY: ileus COMPARISON: 03/09/2024 TECHNIQUE: Supine images of the abdomen FINDINGS: Bowel gas pattern is non-obstructive. Air opacification of the minimally dilated stomach and nondilated colon. No small bowel dilatation is appreciated. Moderate fecal stasis is present There is no free air or deep sulci. Clips within the right upper quadrant. No pathologic calcifications are seen. Lung bases are unremarkable. Bones and soft tissues are unremarkable. IMPRESSION: Nonspecific, nonobstructive bowel gas pattern. No evidence of ileus Reviewed, dictated and finalized at location A. TECH
--- NOTE | 2024-03-09 15:48 | ECG_ITS ---
Test Date: 2024-03-09 16:22:14 Measurements Intervals [place] Rate: 96 P: 33 SD: 156 QRS: 11 QRSD: 93 T: 34 QT: 336 QTc: 426 Interpretive Statements SINUS RHYTHM NONSPECIFIC T-WAVE ABNORMALITY No previous ECG available for comparison Electronically Signed On 03-09-2024 21:11:35 DELI CLERK by Delroy Arevalo M.D.
--- NOTE | 2024-03-09 15:52 | ED.ABDPAIN ---
HPI - Abdominal Pain General Chief Complaint: Abdominal Pain <Lenora Worthy APRN - Last Filed: 03/09/24 15:57> Stated Complaint: ABD PAIN X2D <Lenora Worthy APRN - Last Filed: 03/09/24 15:57> Time Seen by Provider: 03/09/24 15:35 <Lenora Worthy APRN - Last Filed: 03/09/24 15:57> Focused HPI: Patient is a 48-year-old male who presents to the ER with abdominal pain. He was seen at his primary care provider's office this morning and he reports she advised him to come to the ER for evaluation. Patient endorses upper midsternal pain that radiates to his umbilicus. Patient also endorses increased belching and pain radiating down to his groin. He endorses a history of diverticulitis, colitis, cholecystectomy, hypertension, diabetes. Patient denies any urinary symptoms, recent fevers, chest pain. GENERAL: Well-appearing, well-nourished, and in mild distress d/t pain. HEAD: Normocephalic, atraumatic. CHEST: Clear to auscultation. ?No respiratory distress. HEART: Tachycardia, regular rhythm.? NEURO: ?Alert and oriented x3. Patient screened in triage and initial orders placed.? ?Additional care and disposition to be based upon?diagnostic testing and treatment. <Lenora Worthy APRN - Last Filed: 03/09/24 15:57> History of Present Illness HPI narrative: Agree with the HPI described above <Peter Mercedes MD - Last Filed: 03/09/24 21:19> Related Data Home Medications: Home Medications ?Medication ?Instructions ?Recorded ?Confirmed ?Last Taken ?Type fexofenadine 180 mg tablet 180 mg PO DAILY 01/09/21 03/09/24 07/31/21 History (Michell Allergy) fluticasone propionate 50 1 spray intranasal DAILY 01/09/21 03/09/24 08/04/21 06:00 History mcg/actuation nasal spray,suspension (Flonase Allergy Relief) multivitamin 1 tablet PO DAILY 01/09/21 03/09/24 04/06/22 History omeprazole magnesium 20 mg 20 mg PO PRN PRN Heartburn 04/02/22 03/09/24 Unknown History tablet,delayed release (Prilosec OTC) <Lenora Worthy APRN - Last Filed: 03/09/24 15:57> Allergies/Adverse Reactions: Allergies Allergy/AdvReac Type Severity Reaction Status Date / Time piperacillin Allergy Unknown Rash Verified 03/09/24 15:09 tazobactam Allergy Unknown Rash Verified 03/09/24 15:09 sulfamethoxazole (From AdvReac Intermediate Rash Verified 03/09/24 15:09 Bactrim) trimethoprim (From Bactrim) AdvReac Intermediate Rash Verified 03/09/24 15:09 <Lenora Worthy APRN - Last Filed: 03/09/24 15:57> Review of Systems Review of Systems: As reviewed above in HPI <Peter Mercedes MD - Last Filed: 03/09/24 21:19> [facility] Past Medical History Medical History: Medical History Low testosterone in male Apnea Fatigue History of open sigmoidectomy Soft tissue mass KATYA (acute respiratory infection) Bronchitis Wheezing Sinusitis Enterocolitis Small bowel obstruction Gastroesophageal reflux disease Bowel obstruction Fatty liver Elevated liver function tests Hypertension Vitamin D deficiency Anxiety Diverticulitis Asthma Seasonal allergies Gout <Lenora Worthy APRN - Last Filed: 03/09/24 15:57> Surgical History Surgical History: Surgical History Hx of colonoscopy History of removal of cyst Nasal Status post laparoscopic-assisted sigmoidectomy (04/2022) History of wisdom tooth extraction History of vasectomy S/P colon resection History of hip surgery Bilateral hip surgery as a child. <Lenora Worthy APRN - Last Filed: 03/09/24 15:57> Family History Family History: Family History Grandparent Family history of malignant neoplasm of brain Father Heart disease Cancer Mother Glaucoma UTI (urinary tract infection) Sibling Diabetes mellitus Thyroid activity decreased Other Cerebrovascular accident Family history of arthritis Family history of cardiovascular disease Family history of gout Family history of malignant neoplasm Hypertension <Lenora Worthy APRN - Last Filed: 03/09/24 15:57> Social History Social History: Social History Social History: Surrogate medical decision maker: Noemi Fair, spouse. Code status: Full code. Years smoked: 13 Smoking status: Current some day smoker Tobacco type: cigarettes Second hand tobacco smoke exposure: Yes Smoking end date: 08/14/22 Alcohol intake: current Drinks per week: 5 Alcohol use details: Social alcohol use in moderation. Substance use: never Substance use type: does not use Do You Feel Safe in your Home?: Yes Lack of Transportation: No Lack of Food: Never True Current Housing: I Have Housing Concerned About Future Housing: No Difficulty Paying Gas/Electric Bills: No Difficulty Paying for Meds: No Currently Unemployed: No Education: Associate Degree Difficulty w/ Childcare or Family Care: Decline to Answer Living arrangements: with family Additional living arrangements comments: Lives with and daughters. 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 Gender identity (if verbalized by the patient): Male Spiritual care concerns: No Agree to blood products: Yes <Lenora Worthy, NABOR - Last Filed: 03/09/24 15:57> Exam Narrative: GENERAL: [Well-appearing, well-nourished, and in no acute distress.] HEAD: [Normocephalic, atraumatic.] EYES: [PERRLA and EOMI.] ENT: Nares clear, no rhinorrhea or epistaxis. Mucous membranes moist. NECK: Supple. CHEST: [Clear to auscultation. No respiratory distress.] HEART: [Regular rate and rhythm]. No murmur heard. [Normal peripheral pulses.] ABDOMEN: Protuberant abdomen but soft, tender to palpation in the epigastrium and right upper quadrant,, [No rigidity or guarding] EXTREMITIES: Normal range of motion. [No edema.] SKIN: Warm, dry, no rash. NEURO: [No focal deficits]. Alert and oriented [x3.] PSYCH: [Normal mood and affect.] <Peter Mercedes MD - Last Filed: 03/09/24 21:19> Course Vital Signs Vital signs: Vital Signs Temperature 36.7 C 03/09/24 15:05 Pulse Rate 102 H 03/09/24 15:05 Respiratory Rate 20 03/09/24 15:05 Blood Pressure 184/103 H 03/09/24 15:05 Pulse Oximetry 98 03/09/24 15:05 Oxygen Delivery Room Air 03/09/24 15:05 Temperature 36.7 C 03/09/24 15:05 Pulse Rate 90 03/09/24 17:58 Respiratory Rate 18 03/09/24 17:58 Blood Pressure 184/103 H 03/09/24 15:05 Pulse Oximetry 99 03/09/24 17:58 Oxygen Delivery Room Air 03/09/24 15:05 <Lenora Worthy, BOTTLING ROOM WORKER - Last Filed: 03/09/24 15:57> Vital Signs Temperature 36.7 C 03/09/24 15:05 Pulse Rate 102 H 03/09/24 15:05 Respiratory Rate 20 03/09/24 15:05 Blood Pressure 184/103 H 03/09/24 15:05 Pulse Oximetry 98 03/09/24 15:05 Oxygen Delivery Room Air 03/09/24 15:05 Temperature 36.7 C 03/09/24 15:05 Pulse Rate 90 03/09/24 17:58 Respiratory Rate 18 03/09/24 17:58 Blood Pressure 184/103 H 03/09/24 15:05 Pulse Oximetry 99 03/09/24 17:58 Oxygen Delivery Room Air 03/09/24 15:05 <Peter Mercedes MD - Last Filed: 03/09/24 21:19> MDM - Abdominal Pain MDM Narrative Medical decision making narrative: This 48-year-old male with history of complex GI disease including recurrent diverticulitis episodes requiring a sigmoid colectomy, previous ileus treated nonsurgically. Patient presents to the emergency room with chief complaint of epigastric abdominal pain and nauseousness. He states that he has had previous GI issues in the past and was sent in by his primary care provider after an office visit. Patient endorses vague epigastric pain presently, no associated chest pain or shortness of breath. No headache or vision changes, fever, chills. No diarrhea, constipation, urinary complaints, melena. Was otherwise in his normal state of health. He states this feels dissimilar from his previous diverticulitis flare ups. No recent medication changes and was otherwise in his normal state of health recently. He has a protuberant abdomen is soft, tender to palpation epigastrium and right upper quadrant, otherwise well-appearing but hypertensive. No tachycardia, fever, hypoxia. Considerations presently for intra-abdominal process such as appendicitis, diverticulitis, gastritis, gastroenteritis, cholecystitis, portal venous thrombosis. Workup was ordered including a CT scan of his abdomen pelvis, CBC, CMP. He was treated with morphine, fluids and Zofran. Patient was re-evaluated with symptomatic improvement. No leukocytosis or anemia on his labs. Normal LFTs, normal renal function panel, normal electrolytes. Coagulation studies within normal limits. Urinalysis without signs of infection. CT scan shows thrombosis of the right portal vein and diffuse hepatic steatosis and otherwise fat containing hernias without bowel loops. Patient was re-evaluated in given his diagnosis of portal venous thrombosis which is likely provoked by his recurrent history of diverticulitis and abdominal surgeries. Does not have any other high risk factors for thromboembolic disease, no other history of blood clots. He reports no bleeding diathesis or history of bleeding. Will start him on a weight based Lovenox injection 1 mg per kg b.i.d. and transition to an oral DOAC. I discussed the case with the hospitalist Dr. Vasques who was agreeable to the plan of care and admitted the patient to [facility] for observation of his pain, transition of his anticoagulation and monitoring of his blood pressure. Patient was given a dose of hydralazine with good response. <Peter Mercedes MD - Last Filed: 03/09/24 21:19> Medical Records Attestation: I reviewed the patient's medical records. <Peter Mercedes MD - Last Filed: 03/09/24 21:19> Lab Data Attestation: I reviewed the patient's lab results. <Peter Mercedes MD - Last Filed: 03/09/24 21:19> Result diagrams: 03/09/24 16:26 03/09/24 16:26 <Lenora Worthy APRN - Last Filed: 03/09/24 15:57> Labs: Lab Results 03/09/24 03/09/24 Range/Units 16:26 19:12 WBC 7.4 (4.5-10.0) K/mm3 RBC 5.37 (4.6-6.20) M/mm3 Hgb 13.3 L (14.0-18.0) g/dL Hct 42.1 (42.0-52.0) % MCV 78.4 L (80-100) fl MCH 24.8 L (26-34) pg MCHC 31.6 L (32-36) g/dl RDW 16.1 H (11.5-14.5) % Plt Count 239 (150-375) k/mm3 MPV 9.7 (7.4-10.4) fl Immature Gran % (Auto) 0.1 (0-0.5) % Neut % (Auto) 62.7 (45.5-73.1) % Lymph % (Auto) 28.0 (18.3-44.2) % Bullitt % (Auto) 7.2 (2.6-8.5) % Eos % (Auto) 1.5 (0-4.4) % Baso % (Auto) 0.5 (0.2-1.2) % Lymph # (Auto) 2.07 (0.9-3.2) K/mm3 Bullitt # (Auto) 0.5 (0.1-0.6) K/mm3 Eos # (Auto) 0.1 (0-0.3) K/mm3 Baso # (Auto) 0.0 (0.0-0.1) K/mm3 Abs Immat Gran (auto) 0.01 (0.00-0.031) K/mm3 Absolute Neuts (auto) 4.6 (1.3-6.7) K/mm3 Absolute Nucleated RBC 0.000 (0.0-0.012) K/mm3 Nucleated RBC % 0.0 (0.0-0.2) % PT 13.2 (11.1-14.7) Seconds INR 1.0 APTT 26.5 (22.3-36.8) Seconds Sodium 141 (137-145) mmol/L Potassium 4.2 (3.4-5.0) mmol/L Chloride 106 (98-107) mmol/L Carbon Dioxide 23 (22-30) mmol/L Anion Gap 12 (4-12) mmol/L BUN 12 (9-20) mg/dL Creatinine 1.11 (0.7-1.3) mg/dL Estim Creat Clear Calc 94 ml/min Estimated GFR > 60 (59 - ) Glucose 97 (65-110) mg/dL Calcium 8.9 (8.4-10.2) mg/dL Total Bilirubin 0.5 (0.2-1.3) mg/dL AST 45 (17-59) U/L ALT 55 H (6-50) U/L Alkaline Phosphatase 76 (38-126) U/L Troponin I < 0.012 (0.000-0.034) ng/mL Total Protein 8.0 (6.3-8.2) g/dL Albumin 4.6 (3.5-5.1) g/dL Lipase 67 (23-300) U/L Urine Color Dark yellow (Yellow) Urine Appearance Clear (Clear) Urine pH 5.5 (5.0-9.0) Ur Specific [place] 1.016 (1.001-1.035) Urine Protein Negative (Negative) mg/dL Urine Glucose (UA) Negative (Negative) mg/dL Urine Ketones Negative (Negative) mg/dL Ur Blood (Man) Negative (Negative) Urine Nitrate Negative (Negative) Urine Bilirubin Negative (Negative) Urine Urobilinogen 0.2 (<2.0) mg/dL Leukocyte Esterase Rfl Negative (Negative) CASSY/UL <Lenora Worthy, BOTTLING ROOM WORKER - Last Filed: 03/09/24 15:57> Lab Results 03/09/24 03/09/24 Range/Units 16:26 19:12 WBC 7.4 (4.5-10.0) K/mm3 RBC 5.37 (4.6-6.20) M/mm3 Hgb 13.3 L (14.0-18.0) g/dL Hct 42.1 (42.0-52.0) % MCV 78.4 L (80-100) fl MCH 24.8 L (26-34) pg MCHC 31.6 L (32-36) g/dl RDW 16.1 H (11.5-14.5) % Plt Count 239 (150-375) k/mm3 MPV 9.7 (7.4-10.4) fl Immature Gran % (Auto) 0.1 (0-0.5) % Neut % (Auto) 62.7 (45.5-73.1) % Lymph % (Auto) 28.0 (18.3-44.2) % Bull[place] % (Auto) 7.2 (2.6-8.5) % Eos % (Auto) 1.5 (0-4.4) % Baso % (Auto) 0.5 (0.2-1.2) % Lymph # (Auto) 2.07 (0.9-3.2) K/mm3 Bullitt # (Auto) 0.5 (0.1-0.6) K/mm3 Eos # (Auto) 0.1 (0-0.3) K/mm3 Baso # (Auto) 0.0 (0.0-0.1) K/mm3 Abs Immat Gran (auto) 0.01 (0.00-0.031) K/mm3 Absolute Neuts (auto) 4.6 (1.3-6.7) K/mm3 Absolute Nucleated RBC 0.000 (0.0-0.012) K/mm3 Nucleated RBC % 0.0 (0.0-0.2) % PT 13.2 (11.1-14.7) Seconds INR 1.0 APTT 26.5 (22.3-36.8) Seconds Sodium 141 (137-145) mmol/L Potassium 4.2 (3.4-5.0) mmol/L Chloride 106 (98-107) mmol/L Carbon Dioxide 23 (22-30) mmol/L Anion Gap 12 (4-12) mmol/L BUN 12 (9-20) mg/dL Creatinine 1.11 (0.7-1.3) mg/dL Estim Creat Clear Calc 94 ml/min Estimated GFR > 60 (59 - ) Glucose 97 (65-110) mg/dL Calcium 8.9 (8.4-10.2) mg/dL Total Bilirubin 0.5 (0.2-1.3) mg/dL AST 45 (17-59) U/L ALT 55 H (6-50) U/L Alkaline Phosphatase 76 (38-126) U/L Troponin I < 0.012 (0.000-0.034) ng/mL Total Protein 8.0 (6.3-8.2) g/dL Albumin 4.6 (3.5-5.1) g/dL Lipase 67 (23-300) U/L Urine Color Dark yellow (Yellow) Urine Appearance Clear (Clear) Urine pH 5.5 (5.0-9.0) Ur Specific [place] 1.016 (1.001-1.035) Urine Protein Negative (Negative) mg/dL Urine Glucose (UA) Negative (Negative) mg/dL Urine Ketones Negative (Negative) mg/dL Ur Blood (Man) Negative (Negative) Urine Nitrate Negative (Negative) Urine Bilirubin Negative (Negative) Urine Urobilinogen 0.2 (<2.0) mg/dL Leukocyte Esterase Rfl Negative (Negative) CASSY/UL <Peter Mercedes MD - Last Filed: 03/09/24 21:19> Imaging Data Attestation: I personally reviewed and interpreted this imaging study as follows: <Peter Mercedes MD - Last Filed: 03/09/24 21:19> My impression: Impressions Abdomen/Pelvis CT 03/09/24 20:30 IMPRESSION: 1. Thrombosis of right portal vein. 2. Diffuse hepatic steatosis. 3. Umbilical hernia containing fat. 4. Left inguinal hernia containing fat. <Peter Mercedes MD - Last Filed: 03/09/24 21:19> Radiologist's impression: ITS Impressions Abdomen/Pelvis CT 03/09/24 20:30 IMPRESSION: 1. Thrombosis of right portal vein. 2. Diffuse hepatic steatosis. 3. Umbilical hernia containing fat. 4. Left inguinal hernia containing fat. <Lenora Worthy APRN - Last Filed: 03/09/24 15:57> ITS Impressions Abdomen/Pelvis CT 03/09/24 20:30 IMPRESSION: 1. Thrombosis of right portal vein. 2. Diffuse hepatic steatosis. 3. Umbilical hernia containing fat. 4. Left inguinal hernia containing fat. <Peter Mercedes MD - Last Filed: 03/09/24 21:19> Discharge Plan Discharge Clinical Impression: Portal vein thrombosis, Abdominal pain <Lenora Worthy APRN - Last Filed: 03/09/24 15:57> Patient Disposition: Still a Patient <Lenora Worthy APRN - Last Filed: 03/09/24 15:57> Condition: Stable <Lenora Worthy APRN - Last Filed: 03/09/24 15:57> Instructions: Antibiotic Form <Lenora Worthy APRN - Last Filed: 03/09/24 15:57> Patient Language: Indonesian <Lenora Worthy APRN - Last Filed: 03/09/24 15:57> Prescriptions: No Action fexofenadine [Michell Allergy] 180 mg tablet 180 mg PO DAILY fluticasone propionate [Flonase Allergy Relief] 50 mcg/actuation spray,suspension 1 spray intranasal DAILY Rx Instructions: administer into each nostril multivitamin Tablet 1 tablet PO DAILY omeprazole magnesium [Prilosec OTC] 20 mg Tablet,Delayed Release (Dr/Ec) 20 mg PO PRN PRN (Reason: Heartburn) ondansetron 4 mg tablet,disintegrating 4 mg PO Q6H PRN (Reason: nausea and vomiting) Qty: 14 0RF allopurinol 300 mg tablet 300 mg PO DAILY Qty: 90 3RF modafinil 100 mg tablet 100 mg PO QAM Qty: 30 2RF losartan 50 mg tablet See Rx Instructions .ROUTE .COMPLEX Qty: 90 0RF Dose Instruction: TAKE 1 TABLET BY MOUTH DAILY Rx Instructions: TAKE 1 TABLET BY MOUTH DAILY clomiphene citrate [Clomid] 50 mg tablet 25 mg PO DAILY Qty: 15 2RF <Lenora Worthy APRN - Last Filed: 03/09/24 15:57> Follow-up/Referrals: Augustin Mayfield MD [Primary Care Provider] - <Lenora Worthy APRN - Last Filed: 03/09/24 15:57> Time of Disposition: 21:17 <Lenora Worthy APRN - Last Filed: 03/09/24 15:57> 21:17 <Peter Mercedes MD - Last Filed: 03/09/24 21:19>
[2024-03-09 16:34] LABS: Basophils Percent Auto 0.5 % (0.2-1.2); Eosinophils Absolute Auto 0.1 K/mm3 (0-0.3); Eosinophils Percent Auto 1.5 % (0-4.4); Hematocrit 42.1 % (42.0-52.0); Hemoglobin 13.3 g/dL (14.0-18.0); Immature Granulocyte Absolute 0.01 K/mm3 (0.00-0.031); Immature Granulocyte Percent A 0.1 % (0-0.5); Lymphocytes Absolute Auto 2.07 K/mm3 (0.9-3.2); Mean Corpuscular HGB Conc 31.6 g/dl (32-36); Mean Corpuscular Hemoglobin 24.8 pg (26-34); Mean Corpuscular Volume 78.4 fl (80-100); Mean Platelet Volume 9.7 fl (7.4-10.4); Monocytes Absolute Auto 0.5 K/mm3 (0.1-0.6); Monocytes Percent Auto 7.2 % (2.6-8.5); Neutrophils Absolute Auto 4.6 K/mm3 (1.3-6.7); Neutrophils Percent Auto 62.7 % (45.5-73.1); Platelet Count Result 239 k/mm3 (150-375); Red Blood Count 5.37 M/mm3 (4.6-6.20); Red Cell Distribution Width 16.1 % (11.5-14.5); White Blood Count 7.4 K/mm3 (4.5-10.0)
[2024-03-09 16:46] LABS: Prothrombin Time 13.2 Seconds (11.1-14.7)
[2024-03-09 16:47] LABS: Partial Thromboplastin Time 26.5 Seconds (22.3-36.8)
[2024-03-09 16:48] LABS: Alanine Aminotransferase 55 U/L (6-50); Albumin Level 4.6 g/dL (3.5-5.1); Alkaline Phosphatase 76 U/L (38-126); Anion Gap 12 mmol/L (4-12); Aspartate Amino Transferase 45 U/L (17-59); Bilirubin,Total 0.5 mg/dL (0.2-1.3); Blood Urea Nitrogen 12 mg/dL (9-20); Calcium 8.9 mg/dL (8.4-10.2); Carbon Dioxide 23 mmol/L (22-30); Chloride 106 mmol/L (98-107); Estimated CRCL calculation 94 ml/min; Estimated Glomerular Filt Rate > 60; Glucose 97 mg/dL (65-110); Lipase 67 U/L (23-300); Potassium 4.2 mmol/L (3.4-5.0); Sodium 141 mmol/L (137-145)
[2024-03-09 16:57] LABS: Troponin I < 0.012 ng/mL (0.000-0.034)
[2024-03-09 19:49] LABS: Add Urine Microscopic? YES; Appearance Urine Clear (Clear); Bilirubin Urine Negative (Negative); Blood Urine Negative (Negative); Color Urine Dark Yellow (Yellow); Glucose Urine UA Negative (Negative); Ketones Urine Negative (Negative); Leukocyte Esterase Ur Negative LEU/UL (Negative); Nitrate Urine Negative (Negative); Protein Urine Negative (Negative); Specific Grav Ur 1.016 (1.001-1.035); Urobilinogen Urine 0.2 mg/dL (<2.0); pH Urine 5.5 (5.0-9.0)
[2024-03-09] MEDS: MORPHINE SULFATE (*CRX) 4 MG/ML INJ IV PUSH (20:07)
[2024-03-09] MEDS: ONDANSETRON INJ 4 MG/2 ML VIAL IV PUSH (20:07)
--- NOTE | 2024-03-09 21:00 | P.HP_ITS ---
H&P: HPI History of Present Illness Date/Time: 03/09/24 21:00 Chief Complaint: Epigastric pain Narrative: This is a 48-year-old male with past medical history significant for obesity, hypertension, dyslipidemia, fatty liver disease, fatigue, diverticulitis, gout, patient is status post sigmoidectomy. Presents to the emergency room with epigastric pain for 3 days, nausea, poor per orally intake, subjective fever. Preliminary workup was significant for CT of abdomen and pelvis with portal vein thrombosis. Patient has been placed in observation for further evaluation management and treatment. EXAMINATION: CT abdomen pelvis w con DATE: 03/09/2024 20:24 INDICATION: Abdominal pain. TECHNIQUE: Computed tomography (CT) of the abdomen and pelvis was performed with 100 mL Omnipaque 350 intravenous contrast. Automated exposure control and iterative reconstruction technique were employed. The dose-length product was 1553.54 mGy-cm. COMPARISON: CT abdomen and pelvis 01/07/2023 FINDINGS: The visualized portions of lung bases demonstrate mild atelectasis. No pleural effusion. The heart size is normal. No pericardial effusion. There is diffuse hepatic steatosis. There is thrombosis of right portal vein. There is a 7 mm cyst in the liver. There are changes of cholecystectomy. The spleen, pancreas, adrenal glands, and kidneys are normal. The prostate is mildly enlarged. There is diverticulosis of the colon without evidence of diverticulitis. The appendix is normal. There are no pathologically enlarged lymph nodes. There is no free intraperitoneal fluid. There is a left inguinal hernia containing fat. There is an umbilical hernia containing fat. There is moderate lower lumbar spondylosis. IMPRESSION: 1. Thrombosis of right portal vein. 2. Diffuse hepatic steatosis. 3. Umbilical hernia containing fat. 4. Left inguinal hernia containing fat. Review of Systems Review of Systems: Epigastric abdominal pain nonradiating present since 3 days ago, poor per orally intake, nausea, subjective fever. FORMERLY [facility], [facility] Past Medical History Medical History Low testosterone in male Apnea Fatigue History of open sigmoidectomy Soft tissue mass KATYA (acute respiratory infection) Bronchitis Wheezing Sinusitis Enterocolitis Small bowel obstruction Gastroesophageal reflux disease Bowel obstruction Fatty liver Elevated liver function tests Hypertension Vitamin D deficiency Anxiety Diverticulitis Asthma Seasonal allergies Gout Surgical History Surgical History Hx of colonoscopy History of removal of cyst Nasal Status post laparoscopic-assisted sigmoidectomy (04/2022) History of wisdom tooth extraction History of vasectomy S/P colon resection History of hip surgery Bilateral hip surgery as a child. Family History Family History Grandparent Family history of malignant neoplasm of brain Father Heart disease Cancer Mother Glaucoma UTI (urinary tract infection) Sibling Diabetes mellitus Thyroid activity decreased Other Cerebrovascular accident Family history of arthritis Family history of cardiovascular disease Family history of gout Family history of malignant neoplasm Hypertension Social History Social History Social History: Surrogate medical decision maker: Noemi Fair, spouse. Code status: Full code. Years smoked: 13 Smoking status: Current some day smoker Tobacco type: cigarettes Second hand tobacco smoke exposure: Yes Smoking end date: 08/14/22 Alcohol intake: current Drinks per week: 5 Alcohol use details: Social alcohol use in moderation. Substance use: never Substance use type: does not use Do You Feel Safe in your Home?: Yes Lack of Transportation: No Lack of Food: Never True Current Housing: I Have Housing Concerned About Future Housing: No Difficulty Paying Gas/Electric Bills: No Difficulty Paying for Meds: No Currently Unemployed: No Education: Associate Degree Difficulty w/ Childcare or Family Care: Decline to Answer Living arrangements: with family Additional living arrangements comments: Lives with and daughters. 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 Gender identity (if verbalized by the patient): Male Spiritual care concerns: No Agree to blood products: Yes Meds Home Medications and Allergies Home Medications ?Medication ?Instructions ?Recorded ?Confirmed ?Type fexofenadine 180 mg tablet 180 mg PO DAILY 01/09/21 03/09/24 History ([facility] Allergy) fluticasone propionate 50 1 spray intranasal DAILY 01/09/21 03/09/24 History mcg/actuation nasal spray,suspension (Flonase Allergy Relief) multivitamin 1 tablet PO DAILY 01/09/21 03/09/24 History omeprazole magnesium 20 mg 20 mg PO PRN PRN Heartburn 04/02/22 03/09/24 History tablet,delayed release (Prilosec OTC) ondansetron 4 mg disintegrating 4 mg PO Q6H PRN nausea and 01/10/23 03/09/24 Rx tablet vomiting #14 tabs allopurinol 300 mg tablet 300 mg PO DAILY #90 tabs 11/12/23 03/09/24 Rx modafinil 100 mg tablet 100 mg PO QAM #30 tabs 12/12/23 03/09/24 Rx losartan 50 mg tablet See Rx Instructions .Route 01/03/24 03/09/24 Rx .COMPLEX #90 tabs clomiphene citrate 50 mg tablet 25 mg (1/2 x 50 mg) PO DAILY #15 02/11/24 0 03/09/24 Rx (Clomid) tabs Allergies Allergy/AdvReac Type Severity Reaction Status Date / Time piperacillin Allergy Unknown Rash Verified 03/09/24 15:09 tazobactam Allergy Unknown Rash Verified 03/09/24 15:09 sulfamethoxazole (From AdvReac Intermediate Rash Verified 03/09/24 15:09 Bactrim) trimethoprim (From Bactrim) AdvReac Intermediate Rash Verified 03/09/24 15:09 Vital Signs Vital Signs - 24 hr 03/09/24 15:05 03/09/24 17:58 Temperature 98.1 F Pulse Rate 102 H 90 Respiratory Rate 20 18 Blood Pressure 184/103 H Pulse Oximetry 98 99 Oxygen Delivery Room Air Exam Narrative: Patient is laying in a stretcher Const: General: cooperative, comfortable, no acute distress, well developed, alert, awake and overweight Nutritional Appearance: overweight Orientation/consciousness: patient oriented x3 Other: Well-appearing HENMT: Head: normal to inspection, normocephalic and atraumatic Ears: hearing grossly normal bilaterally Face/Nose/Sinus: normal facial exam Face and sinus: normal facial exam Eyes: General: appearance normal, both eyes and all related structures Pupils: Equal, round and reactive pupils present EOM: EOMs intact bilaterally Neck: Neck: full ROM, no lymphadenopathy and no JVD Thyroid: thyroid normal Lymphatic: no lymphadenopathy noted Resp: Effort & Inspection: normal respiratory effort and able to speak in complete sentences Auscultation: clear to auscultation bilaterally Cardio: Jugular venous distension: no JVD Rate: regular rate Rhythm: regular rhythm Heart sounds: S1 normal heart sound present and S2 normal heart sound present GI: Inspection: Pannus present, obesity and visible herniation (Umbilical) GI Palp: Yes abdominal tenderness, Yes Soft to palpation, Yes Tenderness to palpation present (GI) (Epigastric), Yes No hepatosplenomegaly present and No Pulsatile mass present : General: Yes deferred Skin: Rashes: no rashes Wounds: no wounds Neuro: General: patient oriented x3 and CN's II-XI intact bilaterally Cr anial nerves: Yes CN's II-XII intact bilaterally and Yes Equal, round and reactive pupils present Cognition (Neuro): normal cognition Speech: normal speech Gait exam (Neuro): Normal gait present Motor exam (neuro): 5/5 motor strength present throughout Extrem: General: normal to inspection, full ROM, no joint enlargement and no pedal edema H&P: Results Labs Labs: Short CBC 03/09/24 Range/Units 16:26 WBC 7.4 (4.5-10.0) K/mm3 Hgb 13.3 L (14.0-18.0) g/dL Hct 42.1 (42.0-52.0) % Plt Count 239 (150-375) k/mm3 BMP 03/09/24 16:26 Sodium 141 Potassium 4.2 Chloride 106 Carbon Dioxide 23 BUN 12 Creatinine 1.11 Glucose 97 Calcium 8.9 Cardiac Enzymes 03/09/24 Range/Units 16:26 Troponin I < 0.012 (0.000-0.034) ng/mL Liver Function 03/09/24 Range/Units 16:26 Total Bilirubin 0.5 (0.2-1.3) mg/dL AST 45 (17-59) U/L ALT 55 H (6-50) U/L Alkaline Phosphatase 76 (38-126) U/L Albumin 4.6 (3.5-5.1) g/dL Urine 03/09/24 Range/Units 19:12 Urine Color Dark yellow (Yellow) Urine Appearance Clear (Clear) Urine pH 5.5 (5.0-9.0) Ur Specific [place] 1.016 (1.001-1.035) Urine Protein Negative (Negative) mg/dL Urine Glucose (UA) Negative (Negative) mg/dL Assessment and Plan Assessment and plan (1) Portal vein thrombosis: Code(s): I81 - Portal vein thrombosis Status: Acute Assessment and Plan: Patient placed in observation Started on Lovenox Will start DOAC in the morning (2) Abdominal pain: Code(s): R10.9 - Unspecified abdominal pain Status: Acute Assessment and Plan: Likely secondary to 1. Supportive care (3) Hypertension: Qualifiers: Hypertension type: primary hypertension Qualified Code(s): I10 - Essential (primary) hypertension Code(s): I10 - Essential (primary) hypertension Status: Acute Assessment and Plan: Resume home meds Continue to monitor (4) Hyperlipidemia: Qualifiers: Hyperlipidemia type: unspecified Qualified Code(s): E78.5 - Hyperlipidemia, unspecified Code(s): E78.5 - Hyperlipidemia, unspecified Status: Acute Assessment and Plan: Lifestyle and diet modifications (5) Gastroesophageal reflux disease: Code(s): K21.9 - Gastro-esophageal reflux disease without esophagitis Status: Acute Assessment and Plan: PPI (6) Fatty liver: Code(s): K76.0 - Fatty (change of) liver, not elsewhere classified Status: Acute Assessment and Plan: Follow-up in outpatient setting (7) Umbilical hernia: Code(s): K42.9 - Umbilical hernia without obstruction or gangrene Status: Acute Assessment and Plan: Unchanged Hospitalist MIPS Advance Care Plan I have confirmed that the patient's Advanced Care Plan is present, code status is documented, or surrogate decision maker is listed in patient medical record.: Yes Medication Reconciliation I have utilized all available resources to obtain, update and review the patients current medications (includes all prescriptions, OTC, herbals, cannabis, and nutritional supplements).: Yes
[2024-03-09] MEDS: hydrALAZINE HCL 20 MG/ML VIAL 10 MG IV PUSH (21:24)
[2024-03-09] MEDS: ENOXAPARIN 120 MG/0.8 ML SYRINGE SUB-Q (21:24)
[2024-03-10] VITALS (9 sets, daily range): BP systolic 118–149; BP diastolic 83–97; PULSE 80–102; RESP 16–18; TEMP 35.7–37.1; O2SAT 95–98
[2024-03-10] MEDS: HYDROmorphone HCL INJ (*CRX) 1 MG/ML SYR IV PUSH ×5 (01:27→21:17)
[2024-03-10] MEDS: IBUPROFEN 400 MG TABLET PO ×2 (08:16→21:28)
[2024-03-10] MEDS: ENOXAPARIN 120 MG/0.8 ML SYRINGE SUB-Q (08:17)
--- NOTE | 2024-03-10 12:11 | P.PNIM_ITS ---
Progress Note: A&P Assessment and Plan (1) Portal vein thrombosis: Code(s): I81 - Portal vein thrombosis Status: Acute Assessment and Plan: * CT of the abdomen and pelvis showed a thrombosis of the right portal vein, diffuse hepatic steatosis, umbilical hernia, left inguinal hernia * Currently on therapeutic Lovenox and will transition to Eliquis today per DVT protocol * Abdomen slightly distended, taunt, tender, hypoactive bowel sounds. KUB ordered and was negative for any evidence ileus and shown a nonspecific nonobstructive bowel gas pattern * Will start simethicone (2) Hypertension: Qualifiers: Hypertension type: primary hypertension Qualified Code(s): I10 - Essential (primary) hypertension Code(s): I10 - Essential (primary) hypertension Status: Acute Assessment and Plan: * Blood pressure ranging 118/83 to 165/108 * Restart losartan (3) Hyperlipidemia: Qualifiers: Hyperlipidemia type: unspecified Qualified Code(s): E78.5 - Hyperlipidemia, unspecified Code(s): E78.5 - Hyperlipidemia, unspecified Status: Acute Assessment and Plan: * Last lipid panel shown triglycerides 236, total cholesterol 230, LDL 126, VLDL cholesterol 41 * Not currently on any medications (4) Gastroesophageal reflux disease: Code(s): K21.9 - Gastro-esophageal reflux disease without esophagitis Status: Acute Assessment and Plan: * Protonix ordered (5) Fatty liver: Code(s): K76.0 - Fatty (change of) liver, not elsewhere classified Status: Acute Assessment and Plan: * CT of the abdomen and pelvis shown diffuse hepatic steatosis (6) Umbilical hernia: Code(s): K42.9 - Umbilical hernia without obstruction or gangrene Status: Acute Assessment and Plan: * Noted on CT of the abdomen and pelvis * Umbilical hernia containing fat (7) Inguinal hernia: Code(s): K40.90 - Unilateral inguinal hernia, without obstruction or gangrene, not specified as recurrent Status: Acute Assessment and Plan: * Noted on CT of the abdomen and pelvis * Left inguinal hernia containing fat Time Spent With Patient Time with patient: 25 - 35 minutes Subjective Date/time seen: 03/10/24 12:11 Interval history: Interval summary: This is a 48-year-old male who presented to the hospital on 03/09/2024 with epigastric pain. Workup in the hospital included a CT of the abdomen and pelvis with contrast which showed a thrombosis of right portal vein, diffuse hepatic steatosis, umbilical hernia, left inguinal hernia. Initial labs showed a normal white blood cell count of 7.4, hemoglobin 13.3, INR 1.0, troponin was negative, lipase was normal at 67. A UA was obtained and was negative. EKG showed normal sinus rhythm with a rate of 96, QTC 426. Patient was given hydralazine, Zofran, morphine, therapeutic Lovenox while in the ED. Subjective: Patient reporting abdominal distension, nausea, and pain. He states he has a history of diverticulitis and ileus in the past and originally thought that his abdominal distention and pain was due to an ileus and stop eating and drinking yesterday for bowel rest. His abdominal pain worsened prompting him to come in. He denies any fever, chills, vomiting, chest pain, shortness a breath. Labs and imaging reviewed. Review of Systems Review of Systems: All systems reviewed & are unremarkable except as noted in HPI and below Constitutional: Constitutional: Reports as per HPI and Reports no additional constitutional complaints Eyes: Eyes: Reports as per HPI and Reports no additional eye complaints ENT: Reports system reviewed and no additional complaints, except as docu mented and Reports as per HPI Cardiovascular: Cardiovascular: Reports as per HPI and Reports no additional cardiovascular complaints Respiratory: Respiratory: Reports as per HPI and Reports no additional respiratory complaints Gastrointestinal: Gastrointestinal: Reports as per HPI and Reports no additional gastrointestinal complaints Genitourinary: Genitourinary: Reports no additional male genitourinary complaints and Reports as per HPI Musculoskeletal: Musculoskeletal: Reports no additional musculoskeletal complaints and Reports as per HPI Integumentary/Breasts: Skin/Breast: Reports system reviewed and no additional complaints, except as docu and Reports as per HPI Neurologic: Reports system reviewed and no additional complaints, except as documented and Reports as per HPI Psychiatric: Psychiatric: Reports no additional psychiatric complaints and Reports as per HPI Exam Narrative: General: In no acute distress, well nourished Head: atraumatic, no encephalopathy Eyes: PERRLA, sclera clear ENT: moist mucous membranes, nasal passages clear Neck: supple, no JVD, no adenopathy, trachea midline Cardiac: Normal S1 and S2. No murmur, gallops or friction rubs, peripheral pulses intact. Respiratory: Lungs clear to auscultation, no adventitious lung sounds, currently on room air Gastrointestinal: Taunt, mildly distended, tender to palpation, hypoactive active bowel sounds. : voiding without difficulty. Extremities: moves all extremities well, no edema Skin: clean, dry, intact. No wounds or lesions. Neuro: Alert and oriented x4, cranial nerves intact, no neuro deficits. Psych: normal mood, normal affect, interactive Objective Data Vital Signs Vital Signs: Vital Signs - 24 hr 03/09/24 15:05 03/09/24 17:58 03/09/24 19:31 Temperature 98.1 F Pulse Rate 102 H 90 90 Respiratory Rate 20 18 Blood Pressure 184/103 H Pulse Oximetry 98 99 98 Oxygen Delivery Room Air 03/09/24 19:32 03/09/24 19:45 03/09/24 19:46 Temperature Pulse Rate 86 94 87 Respiratory Rate 19 18 21 H Blood Pressure 157/96 H 165/108 H Pulse Oximetry 97 98 98 Oxygen Delivery 03/09/24 20:00 03/09/24 20:01 03/09/24 20:25 Temperature Pulse Rate 91 89 88 Respiratory Rate 23 H 20 23 H Blood Pressure 151/104 H Pulse Oximetry 98 98 Oxygen Delivery 03/09/24 20:26 03/09/24 20:30 03/09/24 20:31 Temperature Pulse Rate 92 87 88 Respiratory Rate 22 H 19 24 H Blood Pressure 154/93 H 142/93 H 146/96 H Pulse Oximetry 97 97 96 Oxygen Delivery 03/09/24 20:32 03/09/24 20:45 03/09/24 20:46 Temperature Pulse Rate 89 90 93 Respiratory Rate 22 H 27 H 24 H Blood Pressure 140/92 H Pulse Oximetry 97 98 98 Oxygen Delivery 03/09/24 21:00 03/09/24 21:01 03/09/24 21:15 Temperature Pulse Rate 87 88 92 Respiratory Rate 22 H 24 H 26 H Blood Pressure 145/93 H Pulse Oximetry 97 97 98 Oxygen Delivery 03/09/24 21:48 03/09/24 22:00 03/09/24 22:01 Temperature Pulse Rate 99 92 92 Respiratory Rate 17 23 H 24 H Blood Pressure 145/98 H Pulse Oximetry 97 97 97 Oxygen Delivery 03/09/24 22:13 03/10/24 00:00 03/10/24 01:16 Temperature Pulse Rate 94 102 H Respiratory Rate 16 Blood Pressure 145/98 H Pulse Oximetry 97 Oxygen Delivery Room Air 03/10/24 04:00 03/10/24 06:00 03/10/24 08:00 Temperature 98.2 F Pulse Rate 84 88 88 Respiratory Rate 18 Blood Pressure 118/83 Pulse Oximetry 95 Oxygen Delivery 03/10/24 10:15 03/10/24 12:00 Temperature 98.8 F Pulse Rate 80 Respiratory Rate Blood Pressure Pulse Oximetry Oxygen Delivery Intake/Output Intake/Output: Intake & Output 03/07/24 03/08/24 03/09/24 03/10/24 23:59 23:59 23:59 23:59 Intake Total 1340 Balance 1340 Meds/Results Medications: Active Medications Generic Name Dose Route Start Last Admin Trade Name Freq PRN Reason Stop Dose Admin Enoxaparin Sodium 120 mg 03/09/24 21:05 03/10/24 08:17 Enoxaparin 120 Mg/0.8 Ml Syringe SUB-Q 120 mg Q12HR GILBERT Administration Hydromorphone HCl 1 mg 03/10/24 00:44 03/10/24 10:12 Hydromorphone Hcl Inj (*Crx) 1 Mg/Ml Syr IV PUSH 1 mg Q3H PRN Administration Pain Rated 7-10 Ibuprofen 400 mg 03/10/24 07:58 03/10/24 08:16 Ibuprofen 400 Mg Tablet PO 400 mg Q6H PRN Administration Pain Rated 1-3 Radiology Results: ITS Impressions Abdomen/Pelvis CT 03/09/24 20:30 IMPRESSION: 1. Thrombosis of right portal vein. 2. Diffuse hepatic steatosis. 3. Umbilical hernia containing fat. 4. Left inguinal hernia containing fat. Labs Labs: Laboratory Results - last 24 hr 03/09/24 03/09/24 16:26 19:12 WBC 7.4 RBC 5.37 Hgb 13.3 L Hct 42.1 MCV 78.4 L MCH 24.8 L MCHC 31.6 L RDW 16.1 H Plt Count 239 MPV 9.7 Immature Gran % (Auto) 0.1 Neut % (Auto) 62.7 Lymph % (Auto) 28.0 [place] % (Auto) 7.2 Eos % (Auto) 1.5 Baso % (Auto) 0.5 Lymph # (Auto) 2.07 [place] # (Auto) 0.5 Eos # (Auto) 0.1 Baso # (Auto) 0.0 Abs Immat Gran (auto) 0.01 Absolute Neuts (auto) 4.6 Absolute Nucleated RBC 0.000 Nucleated RBC % 0.0 PT 13.2 INR 1.0 APTT 26.5 Sodium 141 Potassium 4.2 Chloride 106 Carbon Dioxide 23 Anion Gap 12 BUN 12 Creatinine 1.11 Estim Creat Clear Calc 94 Estimated GFR > 60 Glucose 97 Calcium 8.9 Total Bilirubin 0.5 AST 45 ALT 55 H Alkaline Phosphatase 76 Troponin I < 0.012 Total Protein 8.0 Albumin 4.6 Lipase 67 Urine Color Dark yellow Urine Appearance Clear Urine pH 5.5 Ur Specific [place] 1.016 Urine Protein Negative Urine Glucose (UA) Negative Urine Ketones Negative Ur Blood (Man) Negative Urine Nitrate Negative Urine Bilirubin Negative Urine Urobilinogen 0.2 Leukocyte Esterase Rfl Negative Imaging Radiologist's impression: EXAMINATION: CT abdomen pelvis w con DATE: 03/09/2024 20:24 INDICATION: Abdominal pain. TECHNIQUE: Computed tomography (CT) of the abdomen and pelvis was performed with 100 mL Omnipaque 350 intravenous contrast. Automated exposure control and iterative reconstruction technique were employed. The dose-length product was 1553.54 mGy-cm. COMPARISON: CT abdomen and pelvis 01/07/2023 FINDINGS: The visualized portions of lung bases demonstrate mild atelectasis. No pleural effusion. The heart size is normal. No pericardial effusion. There is diffuse hepatic steatosis. There is thrombosis of right portal vein. There is a 7 mm cyst in the liver. There are changes of cholecystectomy. The spleen, pancreas, adrenal glands, and kidneys are normal. The prostate is mildly enlarged. There is diverticulosis of the colon without evidence of di verticulitis. The appendix is normal. There are no pathologically enlarged lymph nodes. There is no free intraperitoneal fluid. There is a left inguinal hernia containing fat. There is an umbilical hernia containing fat. There is moderate lower lumbar spondylosis. IMPRESSION: 1. Thrombosis of right portal vein. 2. Diffuse hepatic steatosis. 3. Umbilical hernia containing fat. 4. Left inguinal hernia containing fat. Reviewed, dictated and finalized at location A. ING TRANSPORTATION DRIVER Quality VTE Prophylaxis VTE prophylaxis: pharmacologic ordered
[2024-03-10] MEDS: LOSARTAN POTASSIUM 50 MG TABLET PO (12:33)
[2024-03-10] MEDS: SIMETHICONE 125 MG CHEW TAB PO (21:17)
[2024-03-10] MEDS: APIXABAN 5 MG TABLET 10 MG PO (21:17)
[2024-03-11] VITALS: PULSE 73
[2024-03-11 04:00] VITALS: PULSE 65
[2024-03-11 05:27] VITALS: BP 115/67; PULSE 72; RESP 16; TEMP 36.3; O2SAT 99
[2024-03-11] MEDS: IBUPROFEN 400 MG TABLET PO (05:47)
[2024-03-11 06:44] LABS: Basophils Percent Auto 0.7 % (0.2-1.2); Eosinophils Absolute Auto 0.2 K/mm3 (0-0.3); Eosinophils Percent Auto 3.3 % (0-4.4); Hematocrit 40.2 % (42.0-52.0); Hemoglobin 12.2 g/dL (14.0-18.0); Immature Granulocyte Absolute 0.01 K/mm3 (0.00-0.031); Immature Granulocyte Percent A 0.2 % (0-0.5); Lymphocytes Absolute Auto 1.81 K/mm3 (0.9-3.2); Mean Corpuscular HGB Conc 30.3 g/dl (32-36); Mean Corpuscular Hemoglobin 24.1 pg (26-34); Mean Corpuscular Volume 79.4 fl (80-100); Mean Platelet Volume 9.9 fl (7.4-10.4); Monocytes Absolute Auto 0.4 K/mm3 (0.1-0.6); Monocytes Percent Auto 8.8 % (2.6-8.5); Neutrophils Absolute Auto 2.1 K/mm3 (1.3-6.7); Platelet Count Result 209 k/mm3 (150-375); Red Blood Count 5.06 M/mm3 (4.6-6.20); Red Cell Distribution Width 15.9 % (11.5-14.5); White Blood Count 4.5 K/mm3 (4.5-10.0)
[2024-03-11 07:07] LABS: Alanine Aminotransferase 56 U/L (6-50); Alkaline Phosphatase 81 U/L (38-126); Anion Gap 8 mmol/L (4-12); Aspartate Amino Transferase 43 U/L (17-59); Bilirubin,Total 0.6 mg/dL (0.2-1.3); Blood Urea Nitrogen 14 mg/dL (9-20); Calcium 8.8 mg/dL (8.4-10.2); Carbon Dioxide 25 mmol/L (22-30); Chloride 105 mmol/L (98-107); Estimated CRCL calculation 98 ml/min; Estimated Glomerular Filt Rate > 60; Glucose 100 mg/dL (65-110); Sodium 138 mmol/L (137-145)
[2024-03-11 08:00] VITALS: PULSE 71
[2024-03-11] MEDS: LOSARTAN POTASSIUM 50 MG TABLET PO (08:30)
[2024-03-11] MEDS: APIXABAN 5 MG TABLET 10 MG PO (08:31)
[2024-03-11] MEDS: MULTIVITAMINS THERAPEUTIC TAB (*BKC) 1 TABLET PO (08:32)
[2024-03-11] MEDS: SIMETHICONE 125 MG CHEW TAB PO ×2 (08:32→12:09)
[2024-03-11] MEDS: PANTOPRAZOLE 40 MG TABLET PO (08:32)
[2024-03-11] MEDS: allopurinoL 300 MG TABLET PO (08:42)
--- NOTE | 2024-03-11 09:34 | P.DS_ITS ---
DS: Admitting Diagnosis Discharge Date 03/11/24 Admitting Diagnosis Portal vein thrombosis abdominal pain hypertension hyperlipidemia GERD Fatty liver Umbilical hernia DS: Discharge Diagnosis Discharge Diagnosis (1) Portal vein thrombosis: Code(s): I81 - Portal vein thrombosis Status: Acute (2) Hypertension: Qualifiers: Hypertension type: primary hypertension Qualified Code(s): I10 - Essential (primary) hypertension Code(s): I10 - Essential (primary) hypertension Status: Acute (3) Hyperlipidemia: Qualifiers: Hyperlipidemia type: unspecified Qualified Code(s): E78.5 - Hyperlipidemia, unspecified Code(s): E78.5 - Hyperlipidemia, unspecified Status: Acute (4) Gastroesophageal reflux disease: Code(s): K21.9 - Gastro-esophageal reflux disease without esophagitis Status: Acute (5) Fatty liver: Code(s): K76.0 - Fatty (change of) liver, not elsewhere classified Status: Acute (6) Umbilical hernia: Code(s): K42.9 - Umbilical hernia without obstruction or gangrene Status: Acute (7) Inguinal hernia: Code(s): K40.90 - Unilateral inguinal hernia, without obstruction or gangrene, not specified as recurrent Status: Acute DS: Summary Hospital Course Reason for hospitalization: Portal vein thrombosis abdominal pain hypertension hyperlipidemia GERD Fatty liver Umbilical hernia Hospital Course: This is a 48-year-old male who presented to the hospital on 03/09/2024 with epigastric pain. Workup in the hospital included a CT of the abdomen and pelvis with contrast which showed a thrombosis of right portal vein, diffuse hepatic steatosis, umbilical hernia, left inguinal hernia. Initial labs showed a normal white blood cell count of 7.4, hemoglobin 13.3, INR 1.0, troponin was negative, lipase was normal at 67. A UA was obtained and was negative. EKG showed normal sinus rhythm with a rate of 96, QTC 426. Patient was given hydralazine, Zofran, morphine, therapeutic Lovenox while in the ED. Patient was transitioned to Eliquis per DVT protocol. Yesterday we checked a KUB which shown normal gas pattern. Patient was complaining of bloating yesterday. He was encouraged to ambulate in the halls. He is stable for discharge at this time. He will need to follow up with vascular and primary care doctor in the next few weeks. He is stable for discharge at this time. Final diagnosis: Portal vein thrombosis Status at Discharge Cognitive/behavioral status at discharge: Alert and oriented x3 Functional status at discharge: independent ambulation Overall status at discharge: patient is progressing back to baseline Time Spent with Patient Time attestation: Total time spent providing and/or coordinating discharge services: Time spent: Greater than 30 minutes Exam Narrative: General: In no acute distress, well nourished Cardiac: Normal S1 and S2. No murmur, gallops or friction rubs, peripheral pulses intact. Respiratory: Lungs clear to auscultation, no adventitious lung sounds, currently on room air Gastrointestinal: Taunt, mildly distended, tender to palpation, hypoactive active bowel sounds. : voiding without difficulty. Neuro: Alert and oriented x4 DS: Data Data Completed and Pending Completed studies during hospitalization: Abdomen/pelvis CT Abdomen x-ray Pending studies at discharge: None Labs on day of discharge: Labs from last 24 hours 03/11/24 05:41 WBC 4.5 RBC 5.06 Hgb 12.2 L Hct 40.2 L MCV 79.4 L MCH 24.1 L MCHC 30.3 L RDW 15.9 H Plt Count 209 MPV 9.9 Immature Gran % (Auto) 0.2 Neut % (Auto) 47.0 Lymph % (Auto) 40.0 [place] % (Auto) 8.8 H Eos % (Auto) 3.3 Baso % (Auto) 0.7 Lymph # (Auto) 1.81 [place] # (Auto) 0.4 Eos # (Auto) 0.2 Baso # (Auto) 0.0 Abs Immat Gran (auto) 0.01 Absolute Neuts (auto) 2.1 Absolute Nucleated RBC 0.000 Nucleated RBC % 0.0 Sodium 138 Potassium 4.0 Chloride 105 Carbon Dioxide 25 Anion Gap 8 BUN 14 Creatinine 1.07 Estim Creat Clear Calc 98 Estimated GFR > 60 Glucose 100 Calcium 8.8 Total Bilirubin 0.6 AST 43 ALT 56 H Alkaline Phosphatase 81 Total Protein 7.0 Albumin 4.0 Procedures/Treatments: None Imaging Radiologist's impression: Exam: Abdomen 1V HISTORY: ileus COMPARISON: 03/09/2024 TECHNIQUE: Supine images of the abdomen FINDINGS: Bowel gas pattern is non-obstructive. Air opacification of the minimally dilated stomach and nondilated colon. No small bowel dilatation is appreciated. Moderate fecal stasis is present There is no free air or deep sulci. Clips within the right upper quadrant. No pathologic calcifications are seen. Lung bases are unremarkable. Bones and soft tissues are unremarkable. IMPRESSION: Nonspecific, nonobstructive bowel gas pattern. No evidence of ileus Reviewed, dictated and finalized at location A. [facility] EXAMINATION: CT abdomen pelvis w con DATE: 03/09/2024 20:24 INDICATION: Abdominal pain. TECHNIQUE: Computed tomography (CT) of the abdomen and pelvis was performed with 100 mL Omnipaque 350 intravenous contrast. Automated exposure control and iterative reconstruction technique were employed. The dose-length product was 1553.54 mGy-cm. COMPARISON: CT abdomen and pelvis 01/07/2023 FINDINGS: The visualized portions of lung bases demonstrate mild atelectasis. No pleural effusion. The heart size is normal. No pericardial effusion. There is diffuse hepatic steatosis. There is thrombosis of right portal vein. There is a 7 mm cyst in the liver. There are changes of cholecystectomy. The spleen, pancreas, adrenal glands, and kidneys are normal. The prostate is mildly enlarged. There is diverticulosis of the colon without evidence of diverticulitis. The appendix is normal. There are no pathologically enlarged lymph nodes. There is no free intraperitoneal fluid. There is a left inguinal hernia containing fat. There is an umbilical hernia containing fat. There is moderate lower lumbar spondylosis. IMPRESSION: 1. Thrombosis of right portal vein. 2. Diffuse hepatic steatosis. 3. Umbilical hernia containing fat. 4. Left inguinal hernia containing fat. Reviewed, dictated and finalized at location A. [facility] Discharge Plan Discharge Attending physician on discharge: Torsten Jean Discharging Clinician: Zeynep Hernandes Anticipated Discharge Date/Time: 03/11/24 09:26 Patient Disposition: Home, Self-Care Activity: as tolerated Diet: as tolerated and regular Discharge Instructions: * continue to take Eliquis as prescribed for your portal vein thrombosis. * Follow up with primary care doctor in 1 week, get referral to vascular specialist for followup if needed by your insurance. Otherwise call the vascular team below to set up follow up appointment. [facility] [address] [place] [address], [place] [address] * talk with your primary care doctor about your uvula swelling as this can be related to the losartan that your on. Oscar inhibitors and ARB medication has the risk of angioedema with ARB being the least likely to cause this. You may need referral to an ENT for epiglottitis if losartan is not culprit. Patient Instructions: Apixaban (By mouth) Patient Language: Yemeni Stand Alone Forms: General Discharge Information Follow-up/Referrals: Augustin Mayfield MD [Primary Care Provider] - 1 Week Discharge Medications: New simethicone [Gas-X Extra Strength] 125 mg Capsule 125 mg PO QID Qty: 60 0RF Eliquis 5 mg Tablet 10 mg PO Q12HR Qty: 13 0RF Eliquis 5 mg Tablet 5 mg PO Q12HR Qty: 60 0RF Continued fexofenadine [Michell Allergy] 180 mg tablet 180 mg PO DAILY fluticasone propionate [Flonase Allergy Relief] 50 mcg/actuation spray,suspension 1 spray intranasal DAILY Rx Instructions: administer into each nostril multivitamin Tablet 1 tablet PO DAILY omeprazole magnesium [Prilosec OTC] 20 mg Tablet,Delayed Release (Dr/Ec) 20 mg PO PRN PRN (Reason: Heartburn) clomiphene citrate [Clomid] 50 mg tablet 25 mg PO Q2D allopurinol 300 mg tablet 300 mg PO DAILY Qty: 90 3RF modafinil 100 mg tablet 100 mg PO QAM Qty: 30 2RF losartan 50 mg tablet See Rx Instructions .ROUTE .COMPLEX Qty: 90 0RF Dose Instruction: TAKE 1 TABLET BY MOUTH DAILY Rx Instructions: TAKE 1 TABLET BY MOUTH DAILY Date of admission: 03/09/24 21:09 Primary Care Provider: Augustin Mayfield Admitting Provider: Adal Vasques V. Attending physician on admission: Zeynep Hernandes Condition: Improved Quality VTE Prophylaxis VTE prophylaxis: pharmacologic ordered Hospitalist MIPS Heart Failure (Exclusion) Patient has history of Heart Transplant or Left Ventricular Assistive Device?: No IF YES, STOP HERE Heart Failure (Qualifier) Patient has current or prior documentation of LVEF less than or equal to 40%, or mod/servere depressed LVSF?: No IF NO, STOP HERE
[2024-03-11 12:00] VITALS: PULSE 90
== END 2024-03-11 12:40 | disposition home or self-care (01) ==
LOC: ANHED 21:19 → ANH3MEDSUR 03-10 07:47
PROVIDERS: Registered Nurse; Admitting Provider Internal Medicine; Emergency Provider Student in an Organized Health Care Education/Training Program; PCP Family Medicine; Visit Provider Nurse Practitioner Acute Care
DX: I81 Portal vein thrombosis (principal); I10 Essential (primary) hypertension; E78.5 Hyperlipidemia, unspecified; K21.9 Gastro-esophageal reflux disease without esophagitis; K76.0 Fatty (change of) liver, not elsewhere classified; F17.210 Nicotine dependence, cigarettes, uncomplicated; K42.9 Umbilical hernia without obstruction or gangrene; K40.90 Unilateral inguinal hernia, without obstruction or gangrene, not specified as recurrent; E66.9 Obesity, unspecified; Z68.36 Body mass index [BMI] 36.0-36.9, adult; E55.9 Vitamin D deficiency, unspecified; J45.909 Unspecified asthma, uncomplicated; M10.9 Gout, unspecified; Z79.899 Other long term (current) drug therapy; Z87.19 Personal history of other diseases of the digestive system; Z90.49 Acquired absence of other specified parts of digestive tract
CPT/HCPCS: 36415; 74018; 74177; 80053; 81001; 83690; 84484; 85025; 85610; 85730; 93005; 96372; 96374; 96375; 99285; A9270; G0378; J0360; J1171; J1650; J2270; J2405; Q9967

== ENCOUNTER 2024-05-04 14:09 | Outpatient (CLI) | payer OTHER, SELFPAY ==
[2024-05-04 14:33] LABS: Basophils Absolute Auto 0.1 K/mm3 (0.0-0.1); Eosinophils Absolute Auto 0.1 K/mm3 (0-0.3); Eosinophils Percent Auto 2.3 % (0-4.4); Hematocrit 41.5 % (42.0-52.0); Immature Granulocyte Absolute 0.01 K/mm3 (0.00-0.031); Immature Granulocyte Percent A 0.2 % (0-0.5); Lymphocytes Absolute Auto 1.77 K/mm3 (0.9-3.2); Lymphocytes Percent Auto 34.5 % (18.3-44.2); Mean Corpuscular HGB Conc 31.3 g/dl (32-36); Mean Corpuscular Hemoglobin 23.9 pg (26-34); Mean Corpuscular Volume 76.1 fl (80-100); Mean Platelet Volume 9.3 fl (7.4-10.4); Monocytes Absolute Auto 0.4 K/mm3 (0.1-0.6); Neutrophils Absolute Auto 2.8 K/mm3 (1.3-6.7); Platelet Count Result 203 k/mm3 (150-375); Red Blood Count 5.45 M/mm3 (4.6-6.20); White Blood Count 5.1 K/mm3 (4.5-10.0)
[2024-05-04 15:47] LABS: Alanine Aminotransferase 92 U/L (6-50); Albumin Level 4.7 g/dL (3.5-5.1); Alkaline Phosphatase 79 U/L (38-126); Anion Gap 9 mmol/L (4-12); Aspartate Amino Transferase 86 U/L (17-59); Bilirubin,Total 0.3 mg/dL (0.2-1.3); Blood Urea Nitrogen 19 mg/dL (9-20); Calcium 9.5 mg/dL (8.4-10.2); Carbon Dioxide 26 mmol/L (22-30); Chloride 104 mmol/L (98-107); Estimated Glomerular Filt Rate > 60; Glucose 108 mg/dL (65-110); Potassium 4.5 mmol/L (3.4-5.0); Sodium 139 mmol/L (137-145)
--- OUTSIDE RECORDS SUMMARY | 2024-05-04 16:19 | XMS_ITS | Encounter Summary ---
Author Organization [facility] Address [address] [place] [address] Care Team Providers Care Disability Insurance Claim Examiner Name Role Phone Unavailable Primary Care Provider Unavailabl e Reason for Referral * CT Scan (Routine) - Pending Review Specialty Diagnoses / Procedures Referred By Rachel hylton Referred To Contact Diagnoses Portal vein thrombosis Procedures CT ABDOMEN PELVIS W CONTRAST Brad Mazariegos MD [address] [address] Phone: tel: fax: [facility] [address] [address] Phone: tel: fax: Referral ID Status Reason Start Date Expiration Date Visits Requested Visits Authorized [id number] Pending Review [facility] CTS 05/04/2024 06/04/2025 1 1 Reason for Visit * Reason Comments Establish Care Encounter Details Date Type Department Care Team (Late st Contact Info) Description 05/04/2024 1:30 PM CDT Office Visit [facility] Oncology and Hematology - [place] [address] 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 Gender Identity Not on file Sexual Orientation Not on file documented as of this encounter Last Filed Vital Signs Vital Sign Reading Time Taken Comments Blood Pressure 138/90 05/04/2024 1:26 PM CDT Pulse 92 05/04/2024 1:23 PM CDT Temperature 36.2 C (97.1 F) 05/04/2024 1:23 PM CDT Respiratory Rate 15 05/04/2024 1:23 PM CDT Oxygen Saturation 97% 05/04/2024 1:23 PM CDT Inhaled Oxygen Concentration - - Weight 119.7 kg (263 lb 12.8 oz) 05/04/2024 1:23 PM CDT Height 180.3 cm (5' 11 ) 05/04/2024 1:23 PM CDT Body Mass Index 36.79 05/04/2024 1:23 PM CDT documented in this encounter Progress Notes * Brad Mazariegos MD - 05/04/2024 1:58 PM CDT Hematology-oncology consult Note Requesting Physician Augustin Adhikari MD Primary Care Physician No primary care provider on file. Problem list There is no problem list on file for this patient. Previous TREATMENT ? Measurable Disease ? Reason for Visit Vance Fair is a 49 y.o. male who was referred for consultation for portal vein thrombosis. History of present illness This is a 49-year-old obese male with history of hypertension, hyperlipidemia, fatty liver disease, recurrent diverticulitis status post sigmoidectomy, gout, testosterone deficiency on Clomid got admitted to the hospital on March [address] scan done on March 09 showed thrombosis of the portal vein with diffuse hepatic steatosis. He denies any previous historyof thromboembolic events. Is a family history of stroke in grandmother and grandfather. There is heart disease in the family. Patient daughter who was on hormone replacement therapy at age of 21 was also diagnosed with blood clots. Since starting Eliquis he is feeling better and denies any further abdominal discomfort. Patient gained almost 60 pound weight in last 4 years duration. He denies any other complaints. Past Medical History Past Medical History: Diagnosis Date Hypertension Hyperlipidemia Fatty liver disease Recurrent diverticulitis Gout Testosterone deficiency Surgical History Past Surgical History: Procedure Laterality Date HX CHOLECYSTECTOMY 2007 HX HIP SURGERY 1986 right, 1987 left HX SIGMOIDECTOMY 2022 Medications Current Outpatient Medications Medication Sig Dispense Refill allopurinoL (ZYLOPRIM) 300 mg tablet Take 300 mg by mouth daily. Eliquis 5 mg tablet Take 5 mg by mouth 2 times daily. Clomid 50 mg tablet Take 50 mg by mouth daily. losartan (COZAAR) 50 mg tablet Take 50 mg by mouth daily. modafiniL (PROVIGIL) 100 mg Tablet Take 100 mg by mouth daily. loratadine (CLARITIN) 10 mg tablet Take 10 mg by mouth daily. multivitamin (DAILY-TAMIKO) tablet Take 1 Tablet by mouth daily. No current facility-administered medications for this visit. Allergies Allergies Allergen Reactions Ciprofloxacin Hives Piperacillin Hives Sulfa (Sulfonamide Antibiotics) Hives Sulfamethoxazole-Trimethoprim Hives Tazobactam Hives Immunizations: There is no immunization history on file for this patient. Family History Family History Problem Relation Name Age of Onset Lung Cancer Father Heart Disease Father No Known Problems Mother No Known Problems Brother Diabetes Brother Diabetes Sister No Known Problems Child No Known Problems Child Social History Social History Tobacco Use Smoking status: Some Days Types: Cigars Smokeless tobacco: Never Substance Use Topics Alcohol use: Yes Comment: Occasionally Review of Systems Constitutional: Patient did not mention fever; no night sweats; no anorexia; no weight loss; no fatique NEENT: Patient did not mention headache; no change in vision; no change in hearing; no sore throat;no dysphagia Respiratory: Patient did not mention shortness of breath; no pleuritic chest pain; no cough; no hemoptysis Cardiac: Patient did not mention cardiac-like chest pain; no palpitations; no orthopnea; no PND; noDOE GI: Patient did not mention abdominal pain; no nausea; no vomiting; no diarrhea; no hematochezia; no melena : Patient did not mention dysuria; no frequency; no hesitancy; no hematuria 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 No signs of infection or swelling. Eyes: PERRL, conjunctiva normal HEENT: Atraumatic, external ears normal, nose normal, oropharynx moist, no pharyngeal exudates. no sinus tenderness Neck- normal range of motion, no tenderness, supple Respiratory: No respiratory distress, normal breath sounds, no rales, no wheezing Cardiovascular: Normal rate, normal rhythm, no murmurs, no gallops, no rubs GI: Soft, nondistended, normal bowel sounds, nontender, no splenomegaly, no hepatomegaly, no mass, no rebound, no guarding : No costovertebral angle tenderness Musculoskeletal: No edema, no tenderness, no deformities. Back- no tenderness Integument: Well hydrated, no rash, Digits and nails inspection normal Lymphatic: No lymphadenopathy noted Neurologic: Alert & oriented x 3, CN 2-12 normal, normal motor function, normal sensory function, no focal deficits noted Psychiatric: Speech and behavior appropriate ? labs No results found for this or any previous visit (from the past 24 hours). Pathology ? Imaging & Other Studies Performance Status? Assessment / Plan: ? Portal vein thrombosis. Patient is a 49-year-old male with multiple comorbidities including fatty liver, hyperlipidemia and hypertension diagnosed with right portal vein thrombosis when he presented to the hospital with epigastric pain. He has no previous history of thromboembolic events.There is a family history of stroke in grandfather and grandmother. Patient daughter at age of 21 also diagnosed with thrombosis while she was on hormone therapy. He was started on Eliquis and now feeling better. Patient is also on Clomid for testosterone deficiency for more than 1 year duration. Typically anticoagulation therapy for portal vein thrombosis is indicated for 6 months duration. At this time I will order baseline labs including CBC, CMP and testosterone free and total level. I willalso order CT scan abdomen and discussed this with patient next week. He will continue anticoagulation therapy. After completion of anticoagulation therapy will order complete hypercoagulable workup.I have recommended regular exercise and weight loss due to fatty liver which is also the risk factor for portal vein thrombosis. I have answered all the questions to patient's satisfaction. Phone visit in 1 week. Testosterone deficiency. Patient is on Clomid. Hypertension. Patient is on losartan. Gout. He is on allopurinol. Thank you very much for allowing me to participate in Vance Fair's evaluation and management. Please feel free to contact if I can be of any further assistance in your patient???s care requiring hematology or oncology evaluation. Sincerely, ? ? Brad Mazariegos M.D. cell TOBACCO COUNSELING He is not a tobacco/nicotine user. Brad Mazariegos MD ,05/04/2024 1:58 PM ? Total time spent 60 minutes, two third of the total time spent counseling patient [id number]. CC:?Augustin Adhikari MD documented in this encounter Plan of Treatment Upcoming Encounters Date Type Department Care Team (Late st Contact Info) Description 05/13/2024 11:00 AM CDT Office Visit [facility] Oncology and Hematology - [place] [address] [facility] [address] [place] [address] Brad Mazariegos MD [address] [facility] [address] [place] [address] Scheduled Orders Name Type Priority Associated Diagnoses Orde r Schedule CT ABDOMEN PELVIS W CONTRAST Imaging Routine Portal vein thrombosis Expected: 05/11/2024, Expires: 05/04/2025 TESTOSTERONE FREE AND TOTAL Lab Routine Testosterone deficiency Expected: 05/04/2024, Expires: 05/04/2025 CBC WITH DIFFERENTIAL Lab Stat Testosterone deficiency Expected: 05/04/2024, Expires: 05/04/2025 COMPREHENSIVE METABOLIC PANEL Lab Stat Testosterone deficiency Expected: 05/04/2024, Expires: 05/04/2025 documented as of this encounter Visit Diagnoses Diagnosis Portal vein thrombosis- Primary Testosterone deficiency Other testicular hypofunction documented in this encounter
--- OUTSIDE RECORDS SUMMARY | 2024-05-04 16:19 | XMS_ITS | Encounter Summary ---
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
--- OUTSIDE RECORDS SUMMARY | 2024-05-04 16:19 | XMS_ITS | Encounter Summary ---
Author Organization [facility] Address [address] 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
--- OUTSIDE RECORDS SUMMARY | 2024-05-04 16:19 | XMS_ITS | Clinical Summary ---
Author Organization [facility] Reinaldo ramirez Mega Address [address] [place] [address] Care Team Providers Care Assistant Field Hockey Coach Name Role Phone Unavailable Primary Care Provider Unavailabl e Allergies Active Allergy Reactions Criticality Noted Date Comments Ciprofloxacin Hives High 05/04/2024 Piperacillin Hives High 05/04/2024 Sulfa (Sulfonamide Antibiotics) Hives High 04/12 Sulfamethoxazole-Trimethoprim Hives High 2024 Tazobactam Hives High 05/04/2024 Medications allopurinoL (ZYLOPRIM) 300 mg tablet Take 300 mg by mouth daily. 02/07/2024 Active Eliquis 5 mg tablet Take 5 mg by mouth 2 times daily. 04/13/2024 Active Clomid 50 mg tablet Take 50 mg by mouth daily. 04/09/2024 Active losartan (COZAAR) 50 mg tablet Take 50 mg by mouth daily. 04/06/2024 Active modafiniL (PROVIGIL) 100 mg Tablet Take 100 mg by mouth daily. 04/10/2024 Active loratadine (CLARITIN) 10 mg tablet Take 10 mg by mouth daily. Active multivitamin (DAILY-TAMIKO) tablet Take 1 Tablet by mouth daily. Active Active Problems No known active problems Encounters Date Type Department Care Team Description 05/04/2024 1:30 PM CDT Office Visit [facility] H[facility]ology - [address] [place] [address] Brad Mazariegos MD Portal vein thrombosis (Primary Dx); Testosterone deficiency 04/22/2024 External Device Data STL ABSTRACTION Provider, Abstract 04/21/2024 External Device Data STL ABSTRACTION Provider, Abstract 04/18/2024 External Device Data STL ABSTRACTION Provider, Abstract 04/17/2024 External Device Data STL ABSTRACTION Provider, Abstract 04/15/2024 External Device Data STL ABSTRACTION Provider, Abstract 04/15/2024 External Device Data STL ABSTRACTION Provider, Abstract 04/14/2024 External Device Data STL ABSTRACTION Provider, Abstract 04/10/2024 Telephone [facility] - [place] [place] [address] Brad Mazariegos MD Eliquis Refill from Last 3 Months Family History Medical History Relation Name Comments No Known Problems Brother 1 Diabetes Brother 2 No Known Problems Child 1 No Known Problems Child 2 Heart Disease Father Lung Cancer Father No Known Problems Mother Diabetes Sister Relation Name Status Comments Brother 1 Alive Brother 2 Alive Child 1 Alive Child 2 Alive Father Mother Alive Sister Alive Social History Tobacco Use Types Packs/Day Years Used Date Smoking Tobacco: Some Days Cigars Smokeless Tobacco: Never Alcohol Use Standard Drinks/Week Comments Yes 0 (1 standard drink = 0.6 oz pur e alcohol) Occasionally Sex and Gender Information Value Date Recorded Sex Assigned at Not on file 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 Gender Identity Not on file Sexual Orientation Not on file Last Filed Vital Signs Vital Sign Reading [...] Mass Index 36.79 05/04/2024 1:23 PM CDT Plan of Treatment Upcoming Encounters Date Type Department Care Team (Late st Contact Info) Description 05/13/2024 11:00 AM CDT Office Visit [facility] - [place] [place] [address] Brad Mazariegos MD [address] [facility] [address] [place] [address] Health Maintenance Due Date Last Done Comments DTAP/TDAP/TD VACCINES (1 - Tdap) 1993 HEPATITIS B VACCINES (1 of 3 - 19+ 3-dose series) 03/14 COLORECTAL SCREENING 2019 Colorectal Cancer Screening 2019 FIT-DNA Q 3 years 2019 FIT/FOBT Q 1 year 2019 Flex Sig/CT Colonography Q 5 years 2019 INFLUENZA VACCINE (#1) 2023 Preventative Visit- Commercial 02/12/2024 ZOSTER VACCINE (1 of 2) 2024 Insurance [facility] [place] [id number]
== END 2024-05-04 14:10 | disposition home or self-care (01) ==
LOC: ANHLAB 14:10
PROVIDERS: PCP Family Medicine; Visit Provider Internal Medicine Hematology & Oncology
DX: E34.9 Endocrine disorder, unspecified (principal)
CPT/HCPCS: 36415; 80053; 84402; 84403; 85025

== ENCOUNTER 2024-05-07 10:55 | Outpatient (CLI) | payer OTHER, SELFPAY ==
--- NOTE | ~2024-05-07 | CT_ITS ---
EXAMINATION: CT abdomen pelvis w con DATE: 05/07/2024 11:21 INDICATION: Portal vein thrombosis. TECHNIQUE: Computed tomography (CT) of the abdomen and pelvis was performed with 100 mL Omnipaque 350 intravenous contrast. Automated exposure control and iterative reconstruction technique were employe d. The dose-length product was 1157.12 mGy-cm. COMPARISON: CT abdomen pelvis 03/09/2024 FINDINGS: The visualized portions of the lung bases demonstrate mild atelectasis. No pleural effusion . The heart size is normal. No pericardial effusion. Thrombus in right portal vein has resolved. Righ t portal vein is now smaller than the left. There is a 1.8 cm hypodense mass at the hilum of right he patic lobe. There is a 9 mm cyst in the liver. There are changes of cholecystectomy. The spleen, panc reas, adrenal glands, and left kidney are normal. There is a 7 mm cyst in right kidney. The prostate is mildly enlarged. There is an anastomosis in the sigmoid colon. There are no dilated loops of bowel . There is diverticulosis of the colon without evidence of diverticulitis. The appendix is normal. Th ere is an umbilical hernia containing fat. There is a left inguinal hernia containing fat. There are no pathologically enlarged lymph nodes. There is no free intraperitoneal fluid. There is mild thoraci c and lumbar spondylosis. IMPRESSION: 1. Thrombus in right portal vein has resolved. 2. 1.8 cm hypodense mass at the hilum of right hepatic lobe, new from 03/09/24. The differential diagn osis includes focal steatosis, infarct, and less likely metastatic disease. Consider CT abdomen with contrast in 3-6 months. 3. Umbilical hernia containing fat. 4. Left inguinal hernia containing fat. Reviewed, dictated and finalized at location A. IMPRESSION: 1. Thrombus in right portal vein has resolved. 2. 1.8 cm hypodense mass at the hilum of right hepatic lobe, new from 03/09/24. The differential diagnosis includes focal steatosis, infarct, and less likely m etastatic disease. Consider CT abdomen with contrast in 3-6 months. 3. Umbilical hernia containing fat. 4. Left inguinal hernia containing fat.
[2024-05-07 11:11] LABS: Estimated Glomerular Filt Rate 54
== END 2024-05-07 10:56 | disposition home or self-care (01) ==
LOC: MICIMG 10:56
PROVIDERS: PCP Family Medicine; Visit Provider Internal Medicine Hematology & Oncology
DX: I81 Portal vein thrombosis (principal); K44.9 Diaphragmatic hernia without obstruction or gangrene; K40.90 Unilateral inguinal hernia, without obstruction or gangrene, not specified as recurrent
CPT/HCPCS: 74177; Q9967

== ENCOUNTER 2024-05-13 11:49 | Outpatient (CLI) | payer OTHER, SELFPAY ==
--- OUTSIDE RECORDS SUMMARY | 2024-05-13 13:19 | XMS_ITS | Clinical Summary ---
Author Organization [facility] Address [address] [place] [address] Care Team Providers Care Director Food Safety Name Role Phone Unavailable Primary Care Provider [...] Encounters Date Type Department Care Team Description 05/13/2024 11:00 AM CDT Office Visit [facility] Oncology and Hematology - [address] [place] [address] Brad Mazariegos MD Anemia, chronic disease (Primary Dx); Liver mass; Portal vein thrombosis 05/12/2024 Orders Only [facility] On[facility] and Hematology - [place] Brad Mazariegos MD 05/11/2024 Orders Only [facility] On[facility] and Hematology - [place] [place] [phone] Brad Mazariegos MD 05/08/2024 Orders Only [facility] On[facility] and Hematology - [place] Brad Mazariegos MD 05/05/2024 Orders Only [facility] On[facility] and Hematology - [place] Brad Mazariegos MD 05/04/2024 1:30 PM CDT Office Visit [facility] On[facility] Hematology - [place] [place] [phone] Brad Mazariegos MD Portal vein thrombosis (Primary [...] Data STL ABSTRACTION Provider, Abstract 04/10/2024 Telephone [facility] On[facility] and Hematology - [place] [place] [phone] Brad Mazariegos MD Eliquis Refill from Last [...] Tobacco: Some Days Cigars Smokeless Tobacco: Never Tobacco Cessation:Ready to Q uit: Not Asked; Counseling Given: Not Answered Alcohol Use Standard Drinks/Week Comments Yes 0 (1 standard drink = 0.6 oz pur e alcohol) Occasionally Sex and Gender Information Value Date Recorded Sex Assigned at Not on file 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 Gender Identity Not on file Sexual Orientation Not on file Last Filed Vital Signs Vital Sign Reading Time Taken Comments Blood Pressure 132/86 05/13/2024 11:05 AM CDT Pulse 73 05/13/2024 11:02 AM CDT Temperature 35.9 C (96.6 F) 05/13/2024 11:02 AM CDT Respiratory Rate 16 05/13/2024 11:0 2 AM CDT Oxygen Saturation 95% 05/13/2024 11: 02 AM CDT Inhaled Oxygen Concentration - - Weight 116.8 kg (257 lb 6.4 oz) 025 11:02 AM CDT Height 180.3 cm (5' 11 ) 05/04/2024 1:23 PM CDT Body Mass Index 35.9 05/04/2024 1:23 PM CDT Plan of Treatment Upcoming Encounters Date Type Department Care Team (Late st Contact Info) Description 05/20/2024 4:15 PM CDT Telephone Check Up [facility] Oncology and Hematology [facility] [address] [place] [address] Brad Mazariegos MD [address] [place] [address] [employer] [address] [place] [phone] 05/28/2024 4:00 PM CDT Telephone Check Up [facility] Oncology and Hematology - [place] [place] [phone] Brad Mazariegos MD [address] [place], [place] [address] [address] [place] [phone] 08/28/2024 10:15 AM CDT Office Visit [facility] Oncology and Hematology [address] [place] [phone] Brad Mazariegos MD [address] [facility] [employer] [address] [place] [address] Health Maintenance Due Date Last Done Comments Pre-Diabetes and Diabetes Screening 1974 DTAP/TDAP/TD VACCINES (1 - Tdap) 1993 HEPATITIS B VACCINES (1 of 3 - 19+ 3-dose series) 03/14 COLORECTAL SCREENING 2019 Colorectal Cancer Screening 2019 FIT-DNA Q 3 years 2019 FIT/FOBT Q 1 year 2019 Flex Sig/CT Colonography Q 5 years 2019 INFLUENZA VACCINE (#1) 2023 Preventative Visit- Commercial 02/12/2024 ZOSTER VACCINE (1 of 2) 2024 Procedures Procedure Name Priority Date/Time Associated Diagnosis Comments CT ABDOMEN PELVIS W CONTRAST Routine 05/07/2024 10:19 AM CDT COMPREHENSIVE METABOLIC PANEL Routine 05/04/2024 3:05 PM CDT TESTOSTERONE FREE Routine 05/04/2024 7:2 3 AM CDT from Last 3 Months Results * CT ABDOMEN PELVIS W CONTRAST (05/07/2024 10:19 AM CDT) Anatomical Region Laterality Modality Abdomen Computed Tomogra phy Brad Mazariegos MD CT ORDERABLES Final Result * COMPREHENSIVE METABOLIC PANEL (05/04/2024 3:05 PM CDT) Blood Brad Mazariegos MD CHEMISTRY ORDERABLES Final Resu lt * TESTOSTERONE FREE (05/04/2024 7:23 AM CDT) Blood Brad Mazariegos MD CHEMISTRY ORDERABLES Final Resu lt from Last 3 Months Insurance [employer] [phone]
--- OUTSIDE RECORDS SUMMARY | 2024-05-13 13:19 | XMS_ITS | Encounter Summary ---
Author Organization [facility] [employer] Maria E [facility] Address [address] [place] [address] Care Team Providers Care Camera Supervisor Name Role Phone Unavailable Primary Care Provider Unavailabl e Encounter Details Date Type Department Care Team (Late Contact Info) Description 05/12/[address] 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 Oncology and Hematology - [place] [place] [address] Brad Mazariegos MD [address] [employer] [address] [place] [address] 05/28/2024 4:00 PM CDT Telephone Check Up [facility] Oncology and Hematology - [place] [place] [address] Brad Mazariegos MD [address] [facility] [address] [place] [address] 08/28/2024 10:15 AM CDT Office Visit [facility] Oncology and Hematology - [place] [address] [facility] [address] [place] [address] Brad Mazariegos MD [address] [facility] [address] [place] [address] documented as of this encounter Procedures Procedure Name Priority Date/Time Associated Diagnosis Comments TESTOSTERONE FREE Routine 05/04/2024 7:23 AM CDT documented in this encounter Results * TESTOSTERONE FREE (05/04/2024 7:23 AM CDT) Blood Brad Mazariegos MD CHEMISTRY ORDERABLES Final Resu lt documented in this encounter Visit Diagnoses Not on filedocumented in this encounter
--- OUTSIDE RECORDS SUMMARY | 2024-05-13 13:19 | XMS_ITS | Encounter Summary ---
Author Organization [facility] [employer] Maria E [facility] Address [address] [place] [address] Care Team Providers Care Admissions Manager Name Role Phone Unavailable Primary Care Provider Unavailabl e Encounter Details Date Type Department Care Team (Late Contact Info) Description 05/08/2024 Orders Only [facility] Oncology and Hematology - [place] [place] [address] Brad Mazariegos MD [address] [place] [address] [employer] [address] [place] [address] Social History Tobacco Use Types Packs/Day Years Used Date Smoking Tobacco: Some Days Cigars Smokeless Tobacco: Never Alcohol Use Standard Drinks/Week Comments Yes 0 (1 standard drink = 0.6 oz pur e alcohol) Occasionally Sex and Gender Information Value Date Recorded Sex Assigned at Not on file 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 Gender Identity Not on file Sexual Orientation Not on file documented as of this encounter Plan of Treatment Upcoming Encounters Date Type Department Care Team (Late Contact Info) Description 05/20/2024 4:15 PM CDT Telephone Check Up [facility] Oncology and Hematology - [place] [place] [address] Brad Mazariegos MD [address] [place] [address] 05/28/2024 4:00 PM CDT Telephone Check Up [facility] Oncology and Hematology - [place] [place] [address] Brad Mazariegos MD [address] [facility] [address] [place] [address] 08/28/2024 10:15 AM CDT Office Visit [facility] Oncology and Hematology - [place] [facility] [address] [place] [address] Brad Mazariegos MD [address] [facility] [address] [place] [address] documented as of this encounter Procedures Procedure Name Priority Date/Time Associated Diagnosis Comments CT ABDOMEN PELVIS W CONTRAST Routine 05/07/2024 10:19 AM CDT documented in this encounter Results * CT ABDOMEN PELVIS W CONTRAST (05/07/2024 10:19 AM CDT) Anatomical Region Laterality Modality Abdomen Computed Tomogra phy Brad Mazariegos MD CT ORDERABLES Final Result documented in this encounter Visit Diagnoses Not on filedocumented in this encounter
--- OUTSIDE RECORDS SUMMARY | 2024-05-13 13:19 | XMS_ITS | Encounter Summary ---
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 Gender Identity Not on file Sexual Orientation Not on file documented as of this encounter Plan of Treatment Upcoming Encounters Date Type Department Care Team (Late st Contact Info) Description 05/20/2024 4:15 PM CDT Telephone Check Up [facility] Oncology and Hematology - [place] [place] [phone] Brad Mazariegos MD [address] [place] [address] [employer] [address] [place] [phone] 05/28/2024 4:00 PM CDT Telephone Check Up [facility] Oncology and Hematology - [place] [place] [address] Brad Mazariegos MD [address] [place] [address] [employer] [address] [place] [address] 08/28/2024 10:15 AM CDT Office Visit [facility] Oncology and Hematology - [place] [place] [phone] Brad Mazariegos MD [facility] [address] documented as of this encounter Visit Diagnoses Not on filedocumented in this encounter
--- OUTSIDE RECORDS SUMMARY | 2024-05-13 13:19 | XMS_ITS | Encounter Summary ---
Author Organization [facility] Address [address] [place] [address] Care Team Providers Care Rock Dust Sprayer Name Role Phone Unavailable Primary Care Provider Unavailabl e Reason for Referral * Laboratory Services (Routine) - Open Specialty Diagnoses / Procedures Referred By Contac t Referred To Contact Diagnoses Portal vein thrombosis Procedures PROTHROMBIN FACTOR II MUTATION ANALYSIS Brad Mazariegos MD [address] [place] [address] Phone: tel: fax: Referral ID Status Reason Start Date Expiration Date Visits Re quested Visits Authorized [id number] Open 05/13/2024 06/13/2025 1 1 * Laboratory Services (Routine) - Open Specialty Diagnoses / Procedures Referred By Contac t Referred To Contact Diagnoses Portal vein thrombosis Procedures FACTOR V LEIDEN MUTATION Brad Mazariegos MD [address] [place] [address] Phone: tel: fax: Referral ID Status Reason Start Date Expiration Date Visits Re quested Visits Authorized [id number] Open 05/13/2024 06/13/2025 1 1 * CT Scan (Routine) - Pending Review Specialty Diagnoses / Procedures Referred By Contac t Referred To Contact Diagnoses Liver mass Procedures CT ABDOMEN W CONTRAST Brad Mazariegos MD [address] [place] [phone] Phone: tel: fax: [facility] [phone] Referral ID Status Reason Start Date Expiration Date Visits Requested Visits Authorized [id number] Pending Review STL CTS 05/13/2024 06/13/2025 1 1 Reason for Visit * Reason Comments Follow Up Encounter Details Date Type Department Care Team (Late st Contact Info) Description 05/13/2024 11:00 AM CDT Office Visit [facility] Oncology and Hematology [facility] [address] [facility] [address] [place] [address] Brad Mazariegos MD [address] [facility] [address] [place] [address] Anemia, chronic disease (Primary Dx); Liver mass; Portal vein thrombosis Social History Tobacco Use Types Packs/Day Years [...] file 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 Sex: male : 1975 DIAGNOSIS Portal vein thrombosis Microcytic anemia CURRENT TREATMENT Expectant TREATMENT HISTORY SUBJECTIVE Patient came to the office for follow-up visit after the CT scan was performed. He denies any abdominal pain. Denies any bleeding and bruising. Denies any other new complaints. Review of system Constitutional: Patient did not mention fevers, sweats, fatigue, malaise, weight loss HEENT: Patient did not mention sinus congestion, hearing or vision problems Respiratory: Patient did not mention cough, dyspnea, wheeze Cardiovascular: Patient did not mention chest pain, exertional chest pressure/discomfort, nausea, syncope, shortness of breath GI: Patient did not mention constipation, diarrhea, dsyphagia, reflux symptoms, vomiting, melena : Patient did not mention dysuria, frequency, incontinence, urgency Integumentary system: no lymphadenopathy, sweats, flushing Musculoskeletal: Patient not mention: myalgia, arthralgia Neurological: Patient did not mention blurry or disturbed vision, numbness/weakness, dizziness Skin: No lumps, bumps or rashes. Objective: Vital signs in last 24 hours: As per nursing note Exam: General appearance: alert, cooperative, no distress, appears stated age Head: normocephalic, without obvious abnormality, atraumatic Eyes: conjunctivae/corneas clear, EOM's intact Ears: normal external ear canals AU Nose: Nares normal. Septum midline. Mucosa normal. No drainage or sinus tenderness Throat: Lips, mucosa, and tongue normal. Teeth and gums normal Neck: supple, symmetrical, trachea midline. Lungs: clear to auscultation bilaterally Heart: regular rate and rhythm, S1, S2 normal, no murmur, click, rub or gallop Abdomen: soft, non-tender. Bowel sounds normal. No masses, No organomegaly Extremities: extremities normal, atraumatic, no cyanosis or edema Skin: Skin color, texture, turgor normal. No rashes or lesions Lymph nodes: No lymphadenopathy Neuro: No obvious focal deficit PATH LABS Labs from May 04 showed creatinine 1.2 total bilirubin 0.3 AST 86 ALT 92 hemoglobin 13 MCV 76 testosterone total 1549 testosterone free, 92 @IMAGEIMP@ Assessment: Plan: There are no active problems to display for this patient. Portal vein thrombosis diagnosed on March 09, 2024. Patient has history of fatty liver. Patient has been on Clomid for testosterone deficiency for more than [address] scan abdomen done on May 07 showed no evidence of thrombosis in the right portal vein. There was 1.8 cm hypodense mass in the hilum of the right hepatic lobe. Will order repeat CT scan of abdomen with contrast in 3 months. Follow-up in 3 months as well. I will hold Eliquis for 1 week and order the hypercoagulable workup. Phone visit with me 2 weeks todiscuss further anticoagulation therapy based on the results. Microcytic anemia. He will start oral iron twice a day. I will check iron studies and phone visit in 1 week to discuss labs. Elevated liver enzyme. Likely secondary to fatty liver. Testosterone deficiency. Testosterone level came back quite elevated. He is on Clomid. I have recommended to follow-up with primary care physician regarding dose adjustment on Clomid. ? TOBACCO COUNSELING He is not a tobacco/nicotine user. 05/13/2024 Brad Mazariegos MD documented in this encounter Plan of Treatment Upcoming Encounters Date Type Department Care Team (Late st Contact Info) Description 05/20/2024 4:15 PM CDT Telephone Check Up [facility] Oncology and Hematology [facility] [address] [place] [address] Brad Mazariegos MD [address] [facility] [address] [place] [phone] 05/28/2024 4:00 PM CDT Telephone Check Up [facility] Oncology and Hematology [facility] [address] [place] [phone] Brad Mazariegos MD [address] [facility] [address] [place] [phone] 08/28/2024 10:15 AM CDT Office Visit [facility] Oncology and Hematology - Matteo [address] [facility] [address] [place] [address] Brad Mazariegos MD [address] [facility] [address] [place] [address] Scheduled Orders Name Type Priority Associated Diagnoses Orde r Schedule FERRITIN Lab Routine Anemia, chronic disease Expected: 05/13/2024, Expires: 05/13/2025 IRON, TIBC, AND PERCENT SATURATION Lab Routine Anemia, chronic disease Expected: 05/13/2024, Expires: 05/13/2025 CT ABDOMEN W CONTRAST Imaging Routine Liver mass Expected: 08/12/2024, Expires: 05/13/2025 HOMOCYSTEINE Lab Routine Portal vein thrombosis Expected: 05/20/2024, Expires: 05/13/2025 LUPUS ANTICOAGULANT W/REFLEX CONFIRMATION Lab Routine Portal vein thrombosis Expected: 05/20/2024, Expires: 05/13/2025 FACTOR V LEIDEN MUTATION Lab Routine Portal vein thrombosis Expected: 05/20/2024, Expires: 05/13/2025 BETA 2 GLYCOPROTEIN I ANTIBODIES Lab Routine Portal vein thrombosis Expected: 05/20/2024, Expires: 05/13/2025 ANTITHROMBIN III ACTIVITY Lab Routine Portal vein thrombosis Expected: 05/20/2024, Expires: 05/13/2025 PROTEIN C & S ACTIVITY Lab Routine Portal vein thrombosis Expected: 05/20/2024, Expires: 05/13/2025 PROTHROMBIN FACTOR II MUTATION ANALYSIS Lab Routine Portal vein thrombosis Expected: 05/20/2024, Expires: 05/13/2025 documented as of this encounter Visit Diagnoses Diagnosis Anemia, chronic disease- Primary Anemia of other chronic disease Liver mass Unspecified disorder of liver Portal vein thrombosis documented in this encounter
--- OUTSIDE RECORDS SUMMARY | 2024-05-13 13:19 | XMS_ITS | Encounter Summary ---
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 Oncology and Hematology - Matteo [address] [place] [phone] Brad Mazariegos MD [address] [place] [address] [employer] [address] [place] [phone] 05/28/2024 4:00 PM CDT Telephone Check Up [facility] Oncology and Hematology - [place]teo [address] [place] [address] Brad Mazariegos MD [address] [place] [address] [employer] [address] [place] [phone] 08/28/2024 10:15 AM CDT Office Visit [facility] Oncology and Hematology - Matteo [address] [place] [address] Brad Mazariegos MD [facility] [address] documented as of this encounter Visit Diagnoses Not on filedocumented in this encounter
--- OUTSIDE RECORDS SUMMARY | 2024-05-13 13:19 | XMS_ITS | Encounter Summary ---
Author Organization [facility] [employer] Maria E [facility] Address [address] [place] [address] Care Team Providers Care Projection Engineer Name Role Phone Unavailable Primary Care Provider Unavailabl e Encounter Details Date Type Department Care Team (Late Contact Info) Description 05/11/2024 Orders Only [facility] Oncology and Hematology - Matteo [address] [place] [address] Brad Mazariegos MD [address] [place] [address] [employer] [address] [place] [address] Social History Tobacco Use Types Packs/Day Years Used Date Smoking Tobacco: Some Days Cigars Smokeless Tobacco: Never Alcohol Use Standard Drinks/Week Comments Yes 0 (1 standard drink = 0.6 oz pur e alcohol) Occasionally Sex and Gender Information Value Date Recorded Sex Assigned at Not on file 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 Gender Identity Not on file Sexual Orientation Not on file documented as of this encounter Plan of Treatment Upcoming Encounters Date Type Department Care Team (Late Contact Info) Description 05/20/2024 4:15 PM CDT Telephone Check Up [facility] Oncology and Hematology - [place]teo [address] [place] [address] Brad Mazariegos MD [address] [place] [address] 05/28/2024 4:00 PM CDT Telephone Check Up [facility] Oncology and Hematology - Matteo [address] [place] [address] Brad Mazariegos MD 2[address] [facility] 100 [place] [address] 08/28/2024 10:15 AM CDT Office Visit [facility] Oncology and Hematology [facility] 2[address] [facility] [address] [place] [address] Brad Mazariegos MD [address] [address] documented as of this encounter Visit Diagnoses Not on filedocumented in this encounter
[2024-05-13 16:08] LABS: Iron 34 ug/dL (49-181)
[2024-05-13 16:19] LABS: Percent Iron Saturation 8 % (20-50)
== END 2024-05-13 11:50 | disposition home or self-care (01) ==
LOC: ANHLAB 11:52
PROVIDERS: PCP Family Medicine; Visit Provider Internal Medicine Hematology & Oncology
DX: D64.9 Anemia, unspecified (principal)
CPT/HCPCS: 36415; 82728; 83540; 83550

== ENCOUNTER 2024-05-20 13:01 | Outpatient (CLI) | payer OTHER, SELFPAY ==
--- OUTSIDE RECORDS SUMMARY | 2024-05-20 14:29 | XMS_ITS | Encounter Summary ---
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 Gender Identity Not on file Sexual Orientation Not on file documented as of this encounter Plan of Treatment Upcoming Encounters Date Type Department Care Team (Late st Contact Info) Description 05/28/2024 4:00 PM CDT Telephone Check Up [facility] Oncology and Hematology - Matteo [address] [place] [address] Brad Mazariegos MD [address] [place] [phone] 08/28/2024 10:15 AM CDT Office Visit [facility] Oncology and Hematology - Matteo [address] [place] [address] Brad Mazariegos MD [address] [place] [address] [place] [phone] documented as of this encounter Visit Diagnoses Not on filedocumented in this encounter
--- OUTSIDE RECORDS SUMMARY | 2024-05-20 14:29 | XMS_ITS | Encounter Summary ---
Author Organization [facility] Address [address] 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 Gender Identity Not on file Sexual Orientation Not on file documented as of this encounter Plan of Treatment Upcoming Encounters Date Type Department Care Team (Late st Contact Info) Description 05/28/2024 4:00 PM CDT Telephone Check Up [facility] Oncology and Hematology - Matteo [address] [place] [address] Brad Mazariegos MD [address] [place] [phone] 08/28/2024 10:15 AM CDT Office Visit [facility] Oncology and Hematology - Matteo [address] [place] [address] Brad Mazariegos MD [address] [place] [address] [place] [phone] documented as of this encounter Visit Diagnoses Not on filedocumented in this encounter
--- OUTSIDE RECORDS SUMMARY | 2024-05-20 14:29 | XMS_ITS | Clinical Summary ---
Author Organization [facility] Reinaldo ramirez [address] Address [address] [place] [address] Care Team Providers Care Professor Of Theater Name Role Phone Unavailable Primary Care Provider [...] Encounters Date Type Department Care Team Description 05/14/2024 Abstract [facility] Oncology and Hematology - Matteo [address] [place] [address] Brad Mazariegos MD 05/14/2024 Orders Only [facility] Oncology and Hematology - [place]teo [address] [place] [address] Brad Mazariegos MD 05/13/2024 11:00 AM CDT Office Visit [facility] Oncology and Hematology - Matteo [address] [place] [phone] Brad Mazariegos MD Anemia, chronic disease (Primary Dx); Liver mass; Portal vein thrombosis 05/12/2024 Orders Only [facility] Oncology and Hematology - Matteo [address] [place] [address] Brad Mazariegos MD 05/11/2024 Orders Only [facility] Oncology and Hematology - Matteo [address] [place] [phone] Brad Mazariegos MD 05/08/2024 Orders Only [facility] Oncology and Hematology - Matteo [address] [place] [address] Brad Mazariegos MD 05/05/2024 Orders Only [facility] Oncology and Hematology - Matteo [address] [place] [address] Brad Mazariegos MD 05/04/2024 1:30 PM CDT Office Visit [facility] Oncology and Hematology - Matteo [address] [place] [phone] Brad Mazariegos MD Portal vein thrombosis (Primary [...] Data STL ABSTRACTION Provider, Abstract 04/10/2024 Telephone [facility] Oncology and Hematology - Matteo [address] [place] [address] Brad Mazariegos MD Eliquis Refill from Last [...] on file 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 Gender Identity Not on file Sexual [...] 11:02 AM CDT Height 180.3 cm (5' 11) 05/04/2024 1:23 PM CDT Body Mass Index 35.9 05/04/2024 1:23 PM CDT Plan of Treatment Upcoming Encounters Date Type Department Care Team (Late st Contact Info) Description 05/28/2024 4:00 PM CDT Telephone Check Up [facility] Oncology and Hematology - Matteo [address] [place] [address] Brad Mazariegos MD [address] [facility] [employer] [address] [place] [address] 08/28/2024 10:15 AM CDT Office Visit [facility] Oncology and Hematology - Matteo [address] [place] [address] Brad Mazariegos MD [address] [facility] [employer] [address] [place] [phone] Health Maintenance Due Date Last Done [...] Procedure Name Priority Date/Time Associated Diagnosis Comments IRON LEVEL Routine 05/13/2024 10:[address] ABDOMEN PELVIS W CONTRAST Routine 05/07/2024 10:19 AM CDT COMPREHENSIVE METABOLIC PANEL Routine 05/04/2024 3:05 PM CDT TESTOSTERONE FREE Routine 05/04/2024 7:2 3 AM CDT from Last 3 Months Results * IRON LEVEL (05/13/2024 10:48 AM CDT) Blood Brad Mazariegos MD CHEMISTRY ORDERABLES Final Resu lt * CT ABDOMEN PELVIS W CONTRAST (05/07/2024 10:19 AM CDT) Anatomical Region Laterality Modality Abdomen Computed Tomogra phy Brad Mazariegos MD CT ORDERABLES Final Result * COMPREHENSIVE METABOLIC PANEL (05/04/2024 3:05 PM CDT) Blood Brad Mazariegos MD CHEMISTRY ORDERABLES Final Resu lt * TESTOSTERONE FREE (05/04/2024 7:23 AM CDT) Blood us Brad Mazariegos MD CHEMISTRY ORDERABLES Final Resu lt from Last 3 Months Insurance [facility] [id number]
--- OUTSIDE RECORDS SUMMARY | 2024-05-20 14:29 | XMS_ITS | Encounter Summary ---
Author Organization [facility] [employer] Maria E [facility] Address [address] [place] [address] Care Team Providers Care Benefits Specialist Recruiter Name Role Phone Unavailable Primary Care Provider Unavailabl e Encounter Details Date Type Department Care Team (Late Contact Info) Description 05/14/2024 Orders Only [facility] Oncology and Hematology - Matteo [address] [place] [phone] Brad Mazariegos MD [address] [place] [address] [employer] [address] [place] [phone] Social History Tobacco Use Types Packs/Day Years Used Date Smoking Tobacco: Some Days Cigars Smokeless Tobacco: Never Alcohol Use Standard Drinks/Week Comments Yes 0 (1 standard drink = 0.6 oz pur e alcohol) Occasionally Sex and Gender Information Value Date Recorded Sex Assigned at Not on file 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 Gender Identity Not on file Sexual Orientation Not on file documented as of this encounter Plan of Treatment Upcoming Encounters Date Type Department Care Team (Late Contact Info) Description 05/28/2024 4:00 PM CDT Telephone Check Up [facility] Oncology and Hematology - Matteo [address] [place] [address] Brad Mazariegos MD [facility] [employer] [address] [place] [address] 08/28/2024 10:15 AM CDT Office Visit [facility] Oncology [facility] Hematology Matteo [address] [place] [address] Brad Mazariegos MD [address] [address] documented as of this encounter Procedures Procedure Name Priority Date/Time Associated Diagnosis Comments IRON LEVEL Routine 05/13/2024 10:48 AM CDT documented in this encounter Results * IRON LEVEL (05/13/2024 10:48 AM CDT) Blood Brad Mazariegos MD CHEMISTRY ORDERABLES Final Resu lt documented in this encounter Visit Diagnoses Not on filedocumented in this encounter
[2024-05-21 14:29] LABS: Homocysteine. 10.1 umol/L (<11.4)
[2024-05-21 19:23] LABS: Lupus dRVVT Screen 33 sec (< OR = 45); PTT-LA Screen 35 sec (< OR = 40)
[2024-05-27 02:58] LABS: Factor V (Leiden) Mutation NEGATIVE
== END 2024-05-20 13:02 | disposition home or self-care (01) ==
PROVIDERS: PCP Family Medicine; Visit Provider Internal Medicine Hematology & Oncology
DX: I81 Portal vein thrombosis (principal)
CPT/HCPCS: 36415; 81240; 81241; 83090; 85300; 85303; 85306; 85597; 85598; 85613; 85670; 85730; 86146

== ENCOUNTER 2024-07-02 11:33 | Outpatient (CLI) | payer OTHER, SELFPAY ==
--- OUTSIDE RECORDS SUMMARY | 2024-07-02 11:35 | XMS_ITS | Encounter Summary ---
Author Organization [facility] Address [address] [place] [address] Care Team Providers Care Bindery Manager Name Role Phone Unavailable Primary Care Provider Unavailabl e Encounter Details Date Type Department Care Team (Late st Contact Info) Description 06/30/2024 External Device Data STL ABSTRACTION Provider, Abstract NO ADDRESS ON FILE Social History Tobacco Use Types Packs/Day Years Used Date Smoking Tobacco: Some Days Cigars Smokeless Tobacco: Never Alcohol Use Standard Drinks/Week Comments Yes 0 (1 standard drink = 0.6 oz pur e alcohol) Occasionally Sex and Gender Information Value Date Recorded Sex Assigned at Not on file 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
--- OUTSIDE RECORDS SUMMARY | 2024-07-02 11:35 | XMS_ITS | Encounter Summary ---
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
--- OUTSIDE RECORDS SUMMARY | 2024-07-02 11:35 | XMS_ITS | Encounter Summary ---
Author Organization [facility] Address [address] 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
--- OUTSIDE RECORDS SUMMARY | 2024-07-02 11:35 | XMS_ITS | Clinical Summary ---
Author Organization [facility] Address [address] [place] [address] Care Team Providers Care Talent Acquisition Manager Name Role Phone Unavailable Primary Care [...] Encounters Date Type Department Care Team Description 06/30/2024 External Device Data STL ABSTRACTION Provider, Abstract 06/03/2024 Orders Only [facility] Oncology and Hematology - [place] [address] [place] [address] Brad Mazariegos MD 05/28/2024 4:00 PM CDT Telephone Check Up [facility] Oncology and Hematology [place] [address] Brad Mazariegos MD Anemia, chronic disease (Primary Dx) 05/27/2024 Orders Only [facility] Oncology and Hematology - [place] [address] [place] [id number] Brad Mazariegos MD 05/26/2024 External Device Data STL ABSTRACTION Provider, Abstract 05/26/2024 Orders Only [facility] Oncology and Hematology - [place] [address] [place] [id number] Brad Mazariegos MD 05/22/2024 Orders Only [facility] Oncology and Hematology - [place] [address] [place] [id number] Brad Mazariegos MD 05/14/2024 Abstract [facility] Oncology and Hematology - [place] [address] [place] [address] Brad Mazariegos MD 05/14/2024 Orders Only [facility] Oncology and Hematology - [place] [address] [place] [address] Brad Mazariegos MD 05/13/2024 11:00 AM CDT Office Visit [facility] Oncology and Hematology - [place] [address] [place] [id number] Brad Mazariegos MD Anemia, chronic disease (Primary Dx); Liver mass; Portal vein thrombosis 05/12/2024 Orders Only [facility] Oncology and Hematology - [place] [address] [place] [address] Brad Mazariegos MD 05/11/2024 Orders Only [facility] Oncology and Hematology - [place] [address] [place] [address] Brad Mazariegos MD 05/08/2024 Orders Only [facility] Oncology and Hematology - [place] [address] [place] [address] Brad Mazariegos MD 05/05/2024 Orders Only [facility] Oncology and Hematology [facility] [address] [place] [address] Brad Mazariegos MD 05/04/2024 1:30 PM CDT Office Visit [facility] Oncology [facility] [address] [place] [address] Brad Mazariegos MD Portal vein thrombosis (Primary [...] Data STL ABSTRACTION Provider, Abstract 04/10/2024 Telephone [facility] Oncology [facility] [address] [place] [address] Brad Mazariegos MD Eliquis Refill from Last [...] on file 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 Gender Identity Not on file Sexual Orientation [...] Description 08/28/2024 10:15 AM CDT Office Visit [facility] Oncology and Hematology [facility] [address] [facility] [address] [place] [address] Brad Mazariegos MD [address] [facility] [address] [place] [address] Health Maintenance Due Date Last [...] Procedure Name Priority Date/Time Associated Diagnosis Comments CHG PROTEIN C AND S PANEL-CP Routine 05/20/2024 4:05 PM CDT HOMOCYSTEINE Routine 05/20/2024 2:19 PM CDT FACTOR V LEIDEN MUTATION Routine 025 9:12 AM CDT PROTHROMBIN GENE ANALYSIS Routine 2024 9:04 AM CDT IRON LEVEL Routine 05/13/2024 10:[address] ABDOMEN PELVIS W CONTRAST Routine 05/07/2024 10:19 AM CDT COMPREHENSIVE METABOLIC PANEL Routine 05/04/2024 3:05 PM CDT TESTOSTERONE FREE Routine 05/04/2024 7:2 3 AM CDT from Last 3 Months Results * CHG PROTEIN C AND S PANEL-CP (05/20/2024 4:05 PM CDT) Result Reyes Mazariegos MD CHG - LABORATORY Final Result * HOMOCYSTEINE (05/20/2024 2:19 PM CDT) Blood Result Reyes Mazariegos MD CHEMISTRY ORDERABLES Final Resu lt * FACTOR V LEIDEN MUTATION (05/20/2024 9:12 AM CDT) Blood Result Reyes Mazariegos MD HEMATOLOGY ORDERABLES Final Res ult * PROTHROMBIN GENE ANALYSIS (05/20/2024 9:04 AM CDT) Blood Result Reyes Mazariegos MD CHEMISTRY ORDERABLES Final Resu lt * IRON LEVEL (05/13/2024 10:48 AM CDT) Blood Result Reyes Mazariegos MD CHEMISTRY ORDERABLES Final Resu lt * CT ABDOMEN PELVIS W CONTRAST (05/07/2024 10:19 AM CDT) Anatomical Region Laterality Modality Abdomen Computed Tomogra phy Result Reyes Mazariegos MD CT ORDERABLES Final Result * COMPREHENSIVE METABOLIC PANEL (05/04/2024 3:05 PM CDT) Blood Result Reyes Mazariegos MD CHEMISTRY ORDERABLES Final Resu lt * TESTOSTERONE FREE (05/04/2024 7:23 AM CDT) Blood Brad Mazariegos MD CHEMISTRY ORDERABLES Final Resu lt from Last 3 Months Insurance [employer] [id number] [facility] Address: [place] [id number] [place] [address]
[2024-07-02 11:46] LABS: Hematocrit 45.1 % (42.0-52.0); Hemoglobin 14.1 g/dL (14.0-18.0); Mean Corpuscular HGB Conc 31.3 g/dl (32-36); Mean Corpuscular Hemoglobin 24.2 pg (26-34); Mean Corpuscular Volume 77.4 fl (80-100); Mean Platelet Volume 9.5 fl (7.4-10.4); Platelet Count Result 196 k/mm3 (150-375); Red Blood Count 5.83 M/mm3 (4.6-6.20); White Blood Count 4.8 K/mm3 (4.5-10.0)
[2024-07-02 12:12] LABS: Iron 58 ug/dL (49-181)
[2024-07-02 12:23] LABS: Percent Iron Saturation 14 % (20-50)
[2024-07-02 12:52] LABS: Ferritin 8.21 ng/mL (11.1-264)
== END 2024-07-02 11:34 | disposition home or self-care (01) ==
PROVIDERS: PCP Family Medicine; Visit Provider Internal Medicine Hematology & Oncology
DX: D50.9 Iron deficiency anemia, unspecified (principal); D63.8 Anemia in other chronic diseases classified elsewhere; I81 Portal vein thrombosis
CPT/HCPCS: 36415; 82728; 83540; 83550; 85027

== ENCOUNTER 2024-08-20 08:41 | Outpatient (CLI) | payer OTHER, SELFPAY ==
--- NOTE | ~2024-08-20 | CT_ITS ---
EXAMINATION: CT abdomen w con DATE: 08/20/2024 09:22 INDICATION: Liver mass TECHNIQUE: Computed tomography (CT) of the abdomen was performed with 100 mL Omnipaque-350 intravenou s contrast. Automated exposure control and iterative reconstruction technique were employed. The dose -length product was 853.68 mGy-cm. COMPARISON: 05/07/2024 FINDINGS: Lung bases are clear. Heart size is normal. No pericardial or pleural effusion. Cholecystectomy clips at the gallbladder fossa. There is been some interval decrease in size of small regions of focal hep atic steatosis along the ligamentum teres the left hepatic lobe and along the bladder fossa in the ri ght hepatic lobe which have varied slightly in size and conspicuity over multiple CT studies dating b ack to 03/09/2022. 1 cm cyst at the dome of the liver. Spleen, pancreas, bilateral adrenal glands and kidneys are normal. Bladder is normal. Moderate diverticulosis along the descending colon without adj acent from trace stranding to suggest diverticulitis. Small bowel and visualized base of the appendix are normal. Small fat-containing umbilical hernia. No abscess or free intraperitoneal gas or fluid. Small fat-containing left inguinal hernia. No pathologically enlarged abdominal lymphadenopathy. Bone s are unremarkable. IMPRESSION: 1. Interval decrease in size of a couple hypodense regions of focal hepatic steatosis along the ligam entum teres and at the gallbladder fossa. Reviewed, dictated and finalized at location A. IMPRESSION: 1. Interval decrease in size of a couple hypodense regions of focal hepatic andrew atosis along the ligamentum teres and at the gallbladder fossa.
--- OUTSIDE RECORDS SUMMARY | 2024-08-20 08:46 | XMS_ITS | Encounter Summary ---
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
--- OUTSIDE RECORDS SUMMARY | 2024-08-20 08:46 | XMS_ITS | Encounter Summary ---
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
--- OUTSIDE RECORDS SUMMARY | 2024-08-20 08:46 | XMS_ITS | Clinical Summary ---
Author Organization [facility] Address [address] [place] [address] Care Team Providers Care Scientific Diver Name Role Phone Unavailable Primary Care Provider [...] Take 1 Tablet by mouth daily. Active predniSONE (DELTASONE) 50 mg tablet Take 1 tablet by mouth 13 hours, 6 hours, and [address] scan. 3 Tablet 08/17/2024 Active Active Problems No known active problems Encounters Date Type Department Care Team Description 08/17/2024 Refill [facility] Oncology and Hematology - [place] [address] [place] [address] Brad Mazariegos MD 07/14/2024 External Device Data STL ABSTRACTION Provider, Abstract 07/10/2024 Orders Only [facility] Oncology and Hematology - [place] [address] Brad Mazariegos MD 07/02/2024 External Device Data STL ABSTRACTION Provider, Abstract 07/01/2024 External Device Data STL ABSTRACTION Provider, Abstract 06/30/2024 External Device Data STL ABSTRACTION Provider, Abstract 06/03/2024 Orders Only [facility] Oncology and Hematology - [place] [address] [place] [id number] Brad Mazariegos MD 05/28/2024 4:00 PM CDT Telephone Check Up [facility] Oncology and Hematology - [place] [address] [place] [id number] Brad Mazariegos MD Anemia, chronic disease (Primary Dx) 05/27/2024 Orders Only [facility] Oncology and Hematology - [place] [address] [place] [id number] Brad Mazariegos MD 05/26/2024 External Device Data STL ABSTRACTION Provider, Abstract 05/26/2024 Orders Only [facility] Oncology and Hematology - [place] [address] [place] [address] Brad Mazariegos MD 05/22/2024 Orders Only [facility] Oncology and Hematology - [place] [address] [place] [address] Brad Mazariegos MD from Last 3 Months Family History Medical [...] on file 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 Gender Identity Not on file Sexual [...] Description 08/28/2024 10:15 AM CDT Office Visit [facility] Oncology and Hematology - [place] [address] [facility] [address] [place] [address] Brad Mazariegos MD [address] [facility] [address] [place] [address] Health Maintenance Due Date Last Done Comments Pre-Diabetes and Diabetes Screening 1974 DTAP/TDAP/TD VACCINES (1 - Tdap) 1993 HEPATITIS B VACCINES (1 of 3 - 19+ 3-dose series) 03/14 COLORECTAL SCREENING 2019 Colorectal Cancer Screening 2019 FIT-DNA Q 3 years 2019 FIT/FOBT Q 1 year 2019 Flex Sig/CT Colonography Q 5 years 2019 Preventative Visit- Commercial 02/12/2024 ZOSTER VACCINE (1 of 2) 2024 INFLUENZA VACCINE (#1) 2024 Procedures Procedure Name Priority Date/Time Associated Diagnosis Comments CBC WITH DIFFERENTIAL Routine 07/02/2024 5:06 PM CDT from Last 3 Months Results * CBC WITH DIFFERENTIAL (07/02/2024 5:06 PM CDT) Blood Brad Mazariegos MD HEMATOLOGY ORDERABLES Final Res ult from Last 3 Months Insurance [employer] [id number] [facility] Address: [facility] [id number] [place] [address]
[2024-08-20 09:15] LABS: Estimated Glomerular Filt Rate > 60
== END 2024-08-20 08:42 | disposition home or self-care (01) ==
PROVIDERS: PCP Family Medicine; Visit Provider Internal Medicine Hematology & Oncology
DX: R16.0 Hepatomegaly, not elsewhere classified (principal)
CPT/HCPCS: 74160; Q9967

== ENCOUNTER 2024-09-25 13:18 | Outpatient (CLI) | payer OTHER, SELFPAY ==
--- OUTSIDE RECORDS SUMMARY | 2024-09-25 13:22 | XMS_ITS | Encounter Summary ---
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
--- OUTSIDE RECORDS SUMMARY | 2024-09-25 13:22 | XMS_ITS | Clinical Summary ---
Author Organization [facility] Address [address] [place] [address] Care Team Providers Care Special Events Planner Name Role Phone Unavailable Primary Care Provider [...] Encounters Date Type Department Care Team Description 08/31/2024 Orders Only [facility] Oncology and Hematology - [place] [address] [place] [address] Brad Mazariegos MD 08/28/2024 10:15 AM CDT Office Visit [facility] Oncology and Hematology - [place] [address] [place] [address] Brad Mazariegos MD Anemia, chronic disease (Primary Dx) 08/28/2024 Orders Only [facility] Oncology and Hematology - [place] [address] [place] [address] Brad Mazariegos MD 08/27/2024 Telephone [facility] Oncology and Hematology - [place] [address] [place] [address] Brad Mazariegos MD labs for appt 08/17/2024 Refill [facility] Oncology and Hematology [facility] [address] [place] [address] Brad Mazariegos MD 07/14/2024 External Device Data STL ABSTRACTION Provider, Abstract 07/10/2024 Orders Only [facility] Oncology and Hematology - [place] [address] [place] [address] Brad Mazariegos MD 07/02/2024 External Device Data STL ABSTRACTION Provider, Abstract 07/01/2024 External Device Data STL ABSTRACTION Provider, Abstract 06/30/2024 External Device Data STL ABSTRACTION Provider, Abstract from Last 3 Months Family History Medical [...] file Legal Sex Male 4:49 AM MANAGER BODY Gender Identity Not on file Sexual Orientation Not on file Last Filed Vital Signs Vital Sign Reading Time Taken Comments Blood Pressure 136/82 08/28/2024 10:04 AM CDT Pulse 83 08/28/2024 10:04 AM CDT Temperature 36.4 C (97.6 F) 08/28/2024 10:04 AM CDT Respiratory Rate 16 08/28/2024 10:0 4 AM CDT Oxygen Saturation 97% 08/28/2024 10: 04 AM CDT Inhaled Oxygen Concentration - - Weight 107.8 kg (237 lb 9.6 oz) 025 10:04 AM CDT Height 180.3 cm (5' 11) 05/04/2024 1:23 PM CDT Body Mass Index 33.14 05/04/2024 1:23 PM CDT Plan of Treatment Upcoming Encounters Date Type Department Care Team (Late st Contact Info) Description 03/05/2025 9:45 AM MANAGER BODY Office Visit [facility] Oncology and Hematology [facility] [address] [facility] [address] [place] [address] Brad Mazariegos MD [address] [facility] [address] [place] [address] Health Maintenance Due Date Last Done Comments Pre-Diabetes and Diabetes Screening 1974 DTAP/TDAP/TD VACCINES (1 - Tdap) 1993 HEPATITIS B VACCINES (1 of 3 - 19+ 3-dose series) 03/14 COLORECTAL SCREENING 2019 Colorectal Cancer Screening 2019 FIT-DNA Q 3 years 2019 FIT/FOBT Q 1 year 2019 Flex Sig/CT Colonography Q 5 years 2019 ZOSTER VACCINE (1 of 2) 2024 INFLUENZA VACCINE (#1) 2024 Procedures Procedure Name Priority Date/Time Associated Diagnosis Comments CBC WITH DIFFERENTIAL Routine 08/27/2024 5:04 PM CDT IRON, TIBC, AND PERCENT SATURATION Routine 08/27/2024 2:22 PM CDT CBC WITH DIFFERENTIAL Routine 07/02/2024 5:06 PM CDT from Last 3 Months Results * CBC WITH DIFFERENTIAL (08/27/2024 5:04 PM CDT) Only the most recent of2 resultswithin the time period is included. Blood us Brad Mazariegos MD HEMATOLOGY ORDERABLES Final Res ult * IRON, TIBC, AND PERCENT SATURATION (08/27/2024 2:22 PM CDT) Blood us Brad Mazariegos MD CHEMISTRY ORDERABLES Final Resu lt from Last 3 Months Insurance [facility] [id number] [facility] Address: [facility] [id number] [place] [address]
--- OUTSIDE RECORDS SUMMARY | 2024-09-25 13:22 | XMS_ITS | Encounter Summary ---
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
== END 2024-09-25 13:19 | disposition home or self-care (01) ==
PROVIDERS: PCP Family Medicine; Visit Provider Surgery
DX: K43.2 Incisional hernia without obstruction or gangrene (principal)
CPT/HCPCS: 36415; 86850; 86900; 86901

== ENCOUNTER 2024-10-06 00:42 | Day surgery (SDC) | payer OTHER, SELFPAY ==
[2024-09-25 12:36] VITALS: BMI 31.8
--- NOTE | 2024-09-25 12:49 | PC.NURSE ---
Report to the Outpatient Waiting Room, entrance under the green pavilion located off [facility], at time _0600_ on date _15-18-2824_. Planned Procedure Time: _0730_.? Time changes happen often and if your time is changed the preop area will call you the afternoon before. - You and your visitor will be asked to self-screen and do not enter if you have any COVID symptoms. Please call surgeon if you need to reschedule. - A mask is optional within the hospital at this time. Patients may have clear liquids (water, carbonated beverages, clear teas, apple juice) until 3 hours prior to surgery with a maximum of 20 ounces. - No food from midnight until time of surgery and no smoking, or chewing tobacco (or any form of nicotine). No chewing gum, candy or mints. Take only the following medications with a SIP of water on the morning of surgery: __None___ DO NOT STOP ANY OF YOUR OTHER PRESCRIPTION MEDICATIONS PRIOR TO SURGERY EXCEPT THE FOLLOWING Hold all vitamins and supplements for 3 days per anesthesiologist. Medications to discontinue per physician Date to take last [id number]___ Please no make-up, nail vietnamese, hairspray, perfume, deodorant, or body powder the day of surgery.? No jewelry (including any body piercings) or valuables the day of surgery, leave them at home.? Please take a shower or bath the night before, or the morning of, surgery with an antibacterial soap.? Wear comfortable, loose fitting clothing.? - Jewelry must be removed prior to entering the operating room.? Rings and piercings that are not removed may be cut off. - The hospital will not accept responsibility for valuables.? - Please leave all valuables, including medications, at home the day of surgery. If you are going home after surgery, a licensed sanitation truck driver must drive you home.? - NO public transportation without another adult if you receive anesthesia. - We recommend that an adult stay with you for 24 hours following discharge. - We also recommend that you do not drive, make important decision, drink alcoholic beverages, or take any drugs that were not prescribed by your health care provider for at least 24 hours after your discharge time. Follow any additional instructions given to you from your surgeon. Telephone instructions given to __Vance___and asked if any additional questions and then verbalized understanding. Patient advised to call surgeon office or pre surgery nurse liaison [phone] if any additional questions.
[2024-10-06] VITALS (13 sets, daily range): BP systolic 116–144; BP diastolic 65–91; PULSE 52–66; RESP 12–20; TEMP 36.3–37.1; O2SAT 92–100; BMI 32.2
[2024-10-06] MEDS: ACETAMINOPHEN 500 MG TABLET 1000 MG PO (06:25)
[2024-10-06] MEDS: KETOROLAC 15 MG/ML VIAL (*BKC) IV PUSH (06:40)
--- NOTE | 2024-10-06 07:09 | WPDHPUPDATE1 ---
History and Physical Update Update Date/Time: 10/06/24 07:09 History and Physical has been reviewed, including an updated exam of the patient. There are NO changes in the patient's condition. Risks, benefits, and alternatives have been discussed and questions answered. Patient agrees to proceed with procedure.
--- NOTE | 2024-10-06 07:16 | WPDANESEPPF ---
Anes - Initial Pre Proc Eval Procedure: Operation Date: 10/06/24 07:30 Proposed Procedures p Laparoscopic Incisional Hernia Repair with Mesh, Davinci Assisted - Ever Bernal DO Date/Time: 10/06/24 07:16 Surgeon: Ever Bernal DO Pre Op Diagnosis: Incisional Hernia Patient Data Age: 49 Gender: M Height: 1.8 m Weight: 104.9 kg Last Vital Signs Temp 36.3 C L 10/06/24 06:15 Pulse 61 10/06/24 06:15 Resp 14 10/06/24 06:15 BP 134/91 H 10/06/24 06:15 Pulse Ox 98 10/06/24 06:15 Allergies Allergy/AdvReac Type Severity Reaction Status Date / Time piperacillin Allergy Unknown Rash Verified 10/06/24 06:42 tazobactam Allergy Unknown Rash Verified 10/06/24 06:42 sulfamethoxazole (From AdvReac Intermediate Rash Verified 10/06/24 06:42 Bactrim) trimethoprim (From Bactrim) AdvReac Intermediate Rash Verified 10/06/24 06:42 Home Medications ?Medication ?Instructions ?Recorded ?Confirmed ?Type fexofenadine 180 mg tablet 180 mg PO DAILY 01/09/21 09/25/24 History ([facility]hell Allergy) fluticasone propionate 50 1 spray intranasal DAILY 01/09/21 09/25/24 History mcg/actuation nasal spray,suspension (Flonase Allergy Relief) multivitamin 1 tablet PO DAILY 01/09/21 10/06/24 History omeprazole magnesium 20 mg 20 mg PO PRN PRN Heartburn 04/02/22 09/25/24 History tablet,delayed release (Prilosec OTC) allopurinol 300 mg tablet 300 mg PO DAILY #90 tabs 11/12/23 09/25/24 Rx clomiphene citrate 50 mg tablet See Rx Instructions .Route 05/10/24 09/25/24 Rx (Clomid) .COMPLEX #45 tabs modafinil 100 mg tablet 100 mg PO QAM #30 tabs 09/04/24 09/25/24 Rx aspirin 81 mg tablet,delayed 81 mg PO DAILY 09/25/24 09/25/24 History release (Adult Low Dose Aspirin) losartan 50 mg tablet See Rx Instructions .Route 08/18/25 Rx .COMPLEX #90 tabs Patient hx anesthesia problems: none Family hx anesthesia problems: none Results Review: All pre-operative results and documents have been reviewed as part of the pre-operative evaluation. [facility] Past Medical History Medical History Low testosterone in male Apnea Fatigue History of open sigmoidectomy Soft tissue mass KATYA (acute respiratory infection) Bronchitis Wheezing Sinusitis Enterocolitis Small bowel obstruction Gastroesophageal reflux disease Bowel obstruction Fatty liver Elevated liver function tests Hypertension Vitamin D deficiency Anxiety Diverticulitis Asthma Seasonal allergies Gout Surgical History Surgical History Hx of colonoscopy History of removal of cyst Nasal Status post laparoscopic-assisted sigmoidectomy (04/2022) History of wisdom tooth extraction History of vasectomy S/P colon resection History of hip surgery Bilateral hip surgery as a child. Family History Family History Grandparent Family history of malignant neoplasm of brain Father Heart disease Cancer Mother Glaucoma UTI (urinary tract infection) Sibling Diabetes mellitus Thyroid activity decreased Other Cerebrovascular accident Family history of arthritis Family history of cardiovascular disease Family history of gout Family history of malignant neoplasm Hypertension Social History Social History Social History: Surrogate medical decision maker: Noemidevika Fair, spouse. Code status: Full code. Years smoked: 13 Smoking status: Current some day smoker Tobacco type: cigarettes Second hand tobacco smoke exposure: Yes (as a child) Smoking end date: 08/14/22 Alcohol intake: current Drinks per week: 5 Alcohol use details: Social alcohol use in moderation. Substance use: never Substance use type: does not use Do You Feel Safe in your Home?: Yes Lack of Transportation: No Lack of Food: Never True Current Housing: I Have Housing Concerned About Future Housing: No Difficulty Paying Gas/Electric Bills: No Difficulty Paying for Meds: No Currently Unemployed: No Education: Associate Degree Difficulty w/ Childcare or Family Care: No Living arrangements: with family Additional living arrangements comments: Lives with and daughters. 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 Gender identity (if verbalized by the patient): Male Spiritual care concerns: No Agree to blood products: Yes Anes - Eval Final PreProcedure Day of Procedure 10/06/24 07:16 Patient weight: obese Heart: regular rate and rhythm Lungs: clear to auscultation Airway: Mallampati scale class II Neurological: alert and oriented Last oral intake: >/= 8 hours ASA classification: III Emergent: no Anesthetic plan: proceed Anesthesia type and monitoring: general ETT and standard monitoring Results Review: All pre-operative results and documents have been reviewed as part of the pre-operative evaluation. Informed Consent: The patient's anesthetic plan and its attendant risks and benefits were discussed with the patient/family/POA. Questions were solicited and answers provided to the satisfaction of the patient/family/POA.
[2024-10-06] MEDS: ceFAZolin 2 GM in SODIUM CHLORIDE 0.9% IV 50 ML 100 ML IVPB (07:24)
[2024-10-06] MEDS: BUPIVACAINE/EPINEPHRINE 0.5% 30 ML VIAL INFILTRATE (08:01)
--- NOTE | 2024-10-06 09:02 | W.PM.PROC2 ---
Procedure Note - Detailed Date of Procedure 10/06/24 Pre-op Diagnosis Incisional Hernia Post-op Diagnosis Same (4 cm reducible incisional hernia) Procedure Performed Laparoscopic 4 cm incisional hernia repair with mesh, da Belia assisted Surgeon Ever Bernal, DO Anesthesia General and Local (0.5% bupivacaine with epinephrine) Indications This is a 49-year-old man who presented with an incisional hernia. He has a history of a hand assisted laparoscopic sigmoid colectomy in 2022. He noticed a bulge in the umbilical region at the scar shortly after. He has had some increasing pain and increasing size of the hernia since then. He was found to have a 3-4 cm hernia in the periumbilical region on exam. Discussions were made with the patient about treatment options and decision was made to proceed with robotic assisted laparoscopic incisional hernia repair with mesh. Findings Robotic assisted laparoscopic 4 cm incisional hernia repair with mesh was performed. The patient had some adhesions from his prior surgery which appeared to only involve omentum up to the abdominal wall near the area of the hernia. There was some omentum protruding up into the hernia as well but this came down easily with careful dissection. The hernia defect measured about 4 cm x 4 cm and was centered about at the level of the umbilicus. A robotic intraperitoneal onlay mesh technique was utilized for repair. The fascia was reapproximated using a 1 Stratafix running absorbable suture. A Ventralight ST 20 cm x 15 cm mesh was then placed. No specimens were obtained for pathology. Description of Procedure Procedure as well as risks, benefits, and alternatives were discussed with the patient. Written consent was obtained and placed in chart prior to procedure. Patient was brought back to surgical suite. He was placed supine on operating table. Time-out was done to confirm patient and procedure. he was then intubated by the anesthesia department. A bump was placed under his left hip, and the bed was flexed slightly to extend the space between his costal margin and iliac crest. his abdomen was prepped and draped in sterile fashion using chlorhexidine prep. A 5 millimeter incision was made in the left upper quadrant, and a 5 millimeter Optiview trocar was advanced through the abdominal layers under direct visualization. Once inside the abdominal cavity, carbon dioxide insufflation was used to create a pneumoperitoneum. his abdomen was inspected. An 8 millimeter incision was made in the left lower quadrant, and an 8 millimeter robotic trocar was placed under direct visualization. Another 8 millimeter incision was made in the left lateral abdomen, and an 8 millimeter robotic trocar was placed under direct visualization. 0.5% bupivacaine with epinephrine was infiltrated around each port site. The 5 millimeter port was removed, and an 8 mm robotic trocar was placed under direct visualization. The robotic arms were brought up to the patient's bedside and secured to the ports. The camera and instruments were inserted, and I then moved over to the robotic console and took control of the camera and instruments. After careful thorough inspection of the abdominal cavity, I began my dissection at the hernia. the adhesions were taken down carefully using scissors with electrocautery and the omentum was reduced from within the hernia defect. I then measured the hernia size. The hernia measured 4 cm x 4 cm. The fascia was closed using an 1-Stratafix running suture in a vertical fashion. A Ventralight ST 20 cm x 15 cm mesh with Echo 2 positioning device was then placed within the abdominal cavity. This was oriented vertically with the mesh centered on the hernia defect. The mesh was then secured circumferentially to the abdominal wall using 2-0 Stratafix running absorbable suture. The Echo 2 positioning device was removed. The repair was inspected, and one final inspection was made around the abdominal cavity. The robotic instruments were then removed, and the robotic arms were disengaged from the trocars. The ports were then removed under direct visualization, the camera was removed, and the pneumoperitoneum was released. The skin of the incisions was then approximated using 4-0 Monocryl subcuticular suture. Exofin glue was then applied on top. The patient was then awakened from anesthesia, extubated, and transferred to recovery. Implants Ventralight ST 20 cm x 15 cm with Echo 2 positioning device Estimated Blood Loss 10 Complications No immediate complications Condition Stable Disposition Same day [facility] Billing Surgery - Charge Forward: Surgery Billing
[2024-10-06] MEDS: LACTATED RINGERS 1,000 ML 30 ML IV CONT ×2 (09:06→10:05)
[2024-10-06] MEDS: fentaNYL CITRATE INJ (*CRX) 100 MCG/2 ML VIAL 25 MCG IV PUSH ×8 (09:13→10:19)
[2024-10-06] MEDS: HYDROmorphone HCL INJ (*CRX) 1 MG/ML SYR 0.5 MG IV PUSH ×2 (10:34→10:55)
[2024-10-06] MEDS: oxyCODONE HCL (*CRX) 5 MG TAB IR PO (11:19)
== END 2024-10-06 12:32 | disposition home or self-care (01) ==
PROVIDERS: PCP Family Medicine; Visit Provider Surgery
PROC: (CPT 49593; principal; 2024-10-06 07:30)
DX: K43.2 Incisional hernia without obstruction or gangrene (principal); K66.0 Peritoneal adhesions (postprocedural) (postinfection); I10 Essential (primary) hypertension; E55.9 Vitamin D deficiency, unspecified; J45.909 Unspecified asthma, uncomplicated; F41.9 Anxiety disorder, unspecified; K21.9 Gastro-esophageal reflux disease without esophagitis; E29.1 Testicular hypofunction; R06.81 Apnea, not elsewhere classified; R53.83 Other fatigue; F17.210 Nicotine dependence, cigarettes, uncomplicated; E66.9 Obesity, unspecified; Z68.32 Body mass index [BMI] 32.0-32.9, adult; Z79.82 Long term (current) use of aspirin; Z98.890 Other specified postprocedural states; Z90.49 Acquired absence of other specified parts of digestive tract; Z87.19 Personal history of other diseases of the digestive system; Z80.8 Family history of malignant neoplasm of other organs or systems; Z82.49 Family history of ischemic heart disease and other diseases of the circulatory system
CPT/HCPCS: 49593; S2900; J0690; A9270; C1781; J1100; J1171; J1596; J1885; J2250; J2270; J2405; J2704; J2710; J3010; J7120

== ENCOUNTER 2024-11-03 09:29 | Outpatient (CLI) | payer OTHER, SELFPAY ==
--- NOTE | ~2024-11-03 | XR_ITS ---
EXAMINATION: XR abdomen/kub 1V, 11/03/2024 9:37 CDT HISTORY: Abdominal distension (gaseous), 4 days x pain, hx of divert COMPARISON: No comparisons available. Technique: 3 view. Findings: Moderate fecal content, no dilated bowel loops No free air. No abnormal calcifications No acute osseous abnormality. Impression: 1. No acute abnormality. Reviewed, dictated and finalized at location A. Impression: 1. No acute abnormality.
== END 2024-11-03 09:30 | disposition home or self-care (01) ==
LOC: GOSHIMG 09:30
PROVIDERS: PCP Family Medicine; Visit Provider Nurse Practitioner Adult Health
DX: R14.0 Abdominal distension (gaseous) (principal); R10.9 Unspecified abdominal pain
CPT/HCPCS: 74018